=== PATIENT | male | born 1970 | race American Indian/Alaskan Native ===

== ENCOUNTER 2017-12-16 10:56 | Emergency (ER) | payer SELFPAY ==
[2017-12-16] MEDS ORDERED: MOTRIN PO ONE (11:07)
--- NOTE | 2017-12-16 12:27 | Emergency Department Report ---
ED Lower Extremity HPI - General Chief Complaint: Extremity Injury, Lower Stated Complaint: RIGHT FOOT PAIN Time Seen by Provider: 12/16/17 11:06 Source: patient Mode of arrival: Ambulatory Limitations: No Limitations - History of Present Illness Initial Comments: This is a 47-year-old male nontoxic, well nourished in appearance, no acute signs of distress presents to the ED with c/o of right ankle status post fall that occurred yesterday. Patient stated that he was walking twisted his ankle. Patient denies any other trauma or hear injuries. Patient denies any joint redness, joint swelling, fever, chills, nausea, vomiting, chest pain or shortness breath. Patient denies abnormal or decreased gait. Patient denies any allergies or PMH. MD Complaint: ankle injury -: days(s) (1) Injury: Ankle: Right Type of Injury: inversion Severity: mild Severity scale (0 -10): 8 Improves With: immobilization Worsens With: movement, palpation Context: fall Associated Symptoms: swelling, unable to bear weight. denies: snap/pop sensation, numbness, tingling, able to partially bear weight, ambulatory - Related Data Previous Rx's Medication Instructions Recorded Last Taken Type Lansoprazole [Prevacid] 15 mg PO QDAY #30 cap 12/14/13 Unknown Rx ALBUTEROL Inhaler [ProAir HFA 1 puff IH Q4-6H PRN #1 inha 01/26/14 Unknown Rx Inhaler] Azithromycin [Zithromax Z-ROSALINE] 250 mg PO DAILY #6 tablet 01/26/14 Unknown Rx HYDROcodone/APAP 10-325 [[place] 1 each PO Q6HR PRN #20 tablet 01/26/14 Unknown Rx 10/325] Ibuprofen [Motrin] 600 mg PO Q8H PRN #20 tablet 01/26/14 Unknown Rx Prednisone [Prednisone 10 mg 10 mg PO .TAPER #1 tab.ds.pk 01/26/14 Unknown Rx (6-Day Pack, 21 Tabs)] Diazepam Tab [Valium] 5 mg PO Q8H PRN #21 tablet 02/15/14 Unknown Rx HYDROcodone/APAP 5-325 [[place] 1 each PO Q6HR PRN #20 tablet 02/15/14 Unknown Rx 5-325 mg TAB] Ibuprofen [Motrin] 600 mg PO Q8H PRN #30 tablet 12/16/17 Unknown Rx Allergies Allergy/AdvReac Type Severity Reaction Status Date / Time peanut Allergy Swelling Verified 12/16/17 11:00 ED Review of Systems ROS: Stated complaint: RIGHT FOOT PAIN Other details as noted in HPI Constitutional: denies: chills, fever Eyes: denies: eye pain, eye discharge, vision change ENT: denies: ear pain, throat pain Respiratory: denies: cough, shortness of breath, wheezing Cardiovascular: denies: chest pain, palpitations Endocrine: no symptoms reported Gastrointestinal: denies: abdominal pain, nausea, diarrhea Genitourinary: denies: urgency, dysuria Musculoskeletal: arthralgia. denies: back pain, joint swelling Skin: denies: rash, lesions Neurological: denies: headache, weakness, paresthesias Psychiatric: denies: anxiety, depression Hematological/Lymphatic: denies: easy bleeding, easy bruising ED Past Medical Hx - Past Medical History Previous Medical History?: No Additional medical history: denies - Surgical History Additional Surgical History: eye surgery as a child - Social History Smoking Status: Current Every Day Smoker Substance Use Type: None - Medications Home Medications: Home Medications Medication Instructions Recorded Confirmed Last Taken Type Lansoprazole [Prevacid] 15 mg PO QDAY #30 cap 12/14/13 01/26/14 Unknown Rx ALBUTEROL Inhaler [ProAir HFA 1 puff IH Q4-6H PRN #1 inha 01/26/14 Unknown Rx Inhaler] Azithromycin [Zithromax Z-ROSALINE] 250 mg PO DAILY #6 tablet 01/26/14 Unknown Rx HYDROcodone/APAP 10-325 [[place] 1 each PO Q6HR PRN #20 tablet 01/26/14 Unknown Rx 10/325] Ibuprofen [Motrin] 600 mg PO Q8H PRN #20 tablet 01/26/14 Unknown Rx Prednisone [Prednisone 10 mg 10 mg PO .TAPER #1 tab.ds.pk 01/26/14 Unknown Rx (6-Day Pack, 21 Tabs)] Diazepam Tab [Valium] 5 mg PO Q8H PRN #21 tablet 02/15/14 Unknown Rx HYDROcodone/APAP 5-325 [[place] 1 each PO Q6HR PRN #20 tablet 02/15/14 Unknown Rx 5-325 mg TAB] Ibuprofen [Motrin] 600 mg PO Q8H PRN #30 tablet 12/16/17 Unknown Rx ED Physical Exam - General Limitations: No Limitations General appearance: alert, in no apparent distress - Head Head exam: Present: atraumatic, normocephalic - Eye Eye exam: Present: normal appearance Pupils: Present: normal accommodation - ENT ENT exam: Present: normal exam, mucous membranes moist - Neck Neck exam: Present: normal inspection, full ROM. Absent: tenderness, meningismus, lymphadenopathy - Respiratory Respiratory exam: Present: normal lung sounds bilaterally. Absent: respiratory distress, wheezes, rales, rhonchi, stridor, chest wall tenderness, accessory muscle use, decreased breath sounds, prolonged expiratory - Cardiovascular Cardiovascular Exam: Present: regular rate, normal rhythm, normal heart sounds. Absent: irregular rhythm, systolic murmur, diastolic murmur, rubs, gallop - GI/Abdominal GI/Abdominal exam: Present: soft, normal bowel sounds - Rectal Rectal exam: Present: deferred - Extremities Exam Extremities exam: Present: normal inspection, full ROM, tenderness, normal capillary refill. Absent: pedal edema, joint swelling, calf tenderness - Expanded Lower Extremity Exam Right Hip exam: Present: normal inspection, full ROM. Absent: tenderness, swelling Upper Leg exam: Present: normal inspection, full ROM. Absent: tenderness, swelling Knee exam: Present: normal inspection, full ROM. Absent: tenderness, swelling Lower Leg exam: Present: normal inspection, full ROM. Absent: tenderness, swelling Ankle exam: Present: normal inspection, full ROM, tenderness, swelling. Absent : abrasion, laceration, ecchymosis, deformity, crepidus, dislocation, erythema, anterior draw sign Foot/Toe exam: Present: normal inspection, full ROM. Absent: tenderness, swelling, abrasion, laceration, ecchymosis, deformity, crepidus, dislocation, erythema, amputation, puncture wound, foreign body, calcaneal tenderness, tenderness at base of 5th metatarsal, nail avulsion, subungual hematoma Neuro vascular tendon exam: Present: no vascular compromise. Absent: pulse deficit, abnormal cap refill, motor deficit, sensory deficit, tendon deficit, extremity cold to touch, pallor, abnormal 2-point discrimination, decreased fine /light touch, foot drop, peroneal nerve deficit, significant pain with passive ROM of distal joint Gait: Positive: unable to bear weight - Back Exam Back exam: Present: normal inspection, full ROM. Absent: tenderness, CVA tenderness (R), CVA tenderness (L), muscle spasm, paraspinal tenderness, vertebral tenderness, rash noted - Neurological Exam Neurological exam: Present: alert, oriented X3, normal gait - Psychiatric Psychiatric exam: Present: normal affect, normal mood - Skin Skin exam: Present: warm, dry, intact, normal color. Absent: rash ED Course Vital Signs 12/16/17 12/16/17 11:00 11:56 Temperature 98.3 F Pulse Rate 103 H Respiratory 18 16 Rate Blood Pressure 175/99 O2 Sat by Pulse 99 Oximetry - Reevaluation(s) Reevaluation #1: 12/16/17 12:38 Patient is speaking in full sentences with no signs of distress noted. ED Lower Extremity MDM - Medical Decision Making This is a 47-year-old female that presents with right ankle sprain. Patient is stable and was examined by me. I referred patient to an orthopedic doctor for further evaluation for possible MRI. X-ray has been obtained and dictated by the radiologist Dr. Vickers and faxed. Patient is notified of the x-ray report with noted by the patient. There is no ecchymosis. no joint redness or swelling. Not warm to touch. No signs of cellulites present. Patient received a ankle stirrup and crutches and was eduacated by RN how to use crutches. Patient was instructed to RICE therapy. Patient received Motrin for pain. Patient is discharged with Motrin. At time of discharge, the patient does not seem toxic or ill in appearance. No acute signs of distress noted. Patient agrees to discharge treatment plan of care. No further questions noted by the patient. Critical care attestation.: If time is entered above; I have spent that time in minutes in the direct care of this critically ill patient, excluding procedure time. ED Disposition Clinical Impression: Right ankle sprain Qualifiers: Encounter type: initial encounter Involved ligament of ankle: unspecified ligament Qualified Code(s): S93.401A - Sprain of unspecified ligament of right ankle, initial encounter Disposition: TO HOME OR SELFCARE Is pt being admited?: No Does the pt Need Aspirin: No Condition: Stable Instructions: Ankle Sprain (ED), Ankle Stirrup Splint (ED), Crutch Instructions (ED), Ibuprofen (By mouth), RICE Therapy (ED) Additional Instructions: Follow-up with a orthopedic doctor in 3-5 days or if symptoms worsen and continue return to emergency room as soon as possible. Prescriptions: Ibuprofen [Motrin] 600 mg PO Q8H PRN #30 tablet PRN Reason: Pain Referrals: PRIMARY CARE, [Primary Care Provider] - 3-5 Days BHARATI MEREDITH MD [Staff Physician] - 3-5 Days [facility] [Outside] - 3-5 Days [facility] [Outside] - 3-5 Days Forms: Work/School Release Form(ED)
[2017-12-16 13:00] VITALS: BP 145/103
--- NOTE | 2017-12-17 12:50 | XRay Report ---
Right foot 3 views: History: Ankle and foot pain. Findings: Osteopenia. No fracture periosteal reaction lytic lesion. Impression: No evidence of acute fracture.
--- NOTE | 2017-12-17 12:50 | XRay Report ---
Right ankle 3 views: History: 16 ankle pain. Findings: No bony or articular abnormality. No fracture or dislocation. Impression: Essentially negative right ankle.
== END 2017-12-16 13:00 | disposition home or self-care (01) ==
LOC: ED 10:56
DX: S93.401A Sprain of unspecified ligament of right ankle, initial encounter (principal); F17.200 Nicotine dependence, unspecified, uncomplicated; W18.30XA Fall on same level, unspecified, initial encounter; Y93.89 Activity, other specified; Y92.89 Other specified places as the place of occurrence of the external cause; Y99.8 Other external cause status

== ENCOUNTER 2018-04-26 13:44 | Emergency (ER) | payer SELFPAY ==
[2018-04-26 14:15] VITALS: BP 125/82
[2018-04-26] MEDS ORDERED: ZOFRAN IM ONE (15:13)
[2018-04-26] MEDS ORDERED: NACL 0.9% 1000 ML 1,000 ML IV ONE (15:13)
--- NOTE | 2018-04-26 15:22 | Emergency Department Report ---
Vomiting/Diarrhea - HPI Chief Complaint: Nausea/Vomiting/Diarrhea Stated Complaint: FEVER/VOMIT/DIABETES Time Seen by Provider: 04/26/18 15:05 Duration: 1 Day Severity: mild Nausea/Vomiting Severity: Mild Diarrhea Severity: None Pain Severity: None Symptoms: Yes Able to Tolerate Fluids, No Watery Diarrhea, No Bloody diarrhea, No Fever, No Recent Unusual Foods, No Recent Untreated Water, No Recent use of Antibiotics, No Family w/ Similar Symptoms, No Contacts w/ Similar Symptoms, No Rash, No Hematuria, No Recent URI Symptoms Other History: This is a 47-year-old male nontoxic, well nourished in appearance , no acute signs of distress presents to the ED with c/o of nausea 1 day. Patient currtenly denies any vomiting. Patient stated that yesterday had vomiting and now patient has nausea and sore throat. Patient denies any abdominal pain, chest pain, short of breath, fever, chills, headache, stiff neck , numbness or tingling. Patient denies any diarrhea or constipation. Patient denies any recent travels. Patient denies any drug allergies significant past medical history. ED Review of Systems ROS: Stated complaint: FEVER/VOMIT/DIABETES Other details as noted in HPI Constitutional: denies: chills, fever Eyes: denies: eye pain, eye discharge, vision change ENT: denies: ear pain, throat pain Respiratory: denies: cough, shortness of breath, wheezing Cardiovascular: denies: chest pain, palpitations Endocrine: no symptoms reported Gastrointestinal: nausea. denies: abdominal pain, vomiting, diarrhea Genitourinary: denies: urgency, dysuria Musculoskeletal: denies: back pain, joint swelling, arthralgia Skin: denies: rash, lesions Neurological: denies: headache, weakness, paresthesias Psychiatric: denies: anxiety, depression Hematological/Lymphatic: denies: easy bleeding, easy bruising ED Past Medical Hx - Past Medical History Hx Diabetes: Yes Additional medical history: denies - Surgical History Additional Surgical History: eye surgery as a child - Social History Smoking Status: Former Smoker Substance Use Type: None - Medications Home Medications: Home Medications Medication Instructions Recorded Confirmed Last Taken Type Lansoprazole [Prevacid] 15 mg PO QDAY #30 cap 12/14/13 01/26/14 Unknown Rx ALBUTEROL Inhaler (OR & NICU) 1 puff IH Q4-6H PRN #1 inha 01/26/14 Unknown Rx [ProAir HFA Inhaler] Azithromycin [Zithromax Z-ROSALINE] 250 mg PO DAILY #6 tablet 01/26/14 Unknown Rx HYDROcodone/APAP 10-325 [[place] 1 each PO Q6HR PRN #20 tablet 01/26/14 Unknown Rx 10/325] Ibuprofen [Motrin] 600 mg PO Q8H PRN #20 tablet 01/26/14 Unknown Rx Prednisone [Prednisone 10 mg 10 mg PO .TAPER #1 tab.ds.pk 01/26/14 Unknown Rx (6-Day Pack, 21 Tabs)] HYDROcodone/APAP 5-325 [[place] 1 each PO Q6HR PRN #20 tablet 02/15/14 Unknown Rx 5-325 mg TAB] diazePAM TAB [Valium] 5 mg PO Q8H PRN #21 tablet 02/15/14 Unknown Rx Ibuprofen [Motrin] 600 mg PO Q8H PRN #30 tablet 12/16/17 Unknown Rx Ondansetron [Zofran Odt] 4 mg PO Q8HR PRN #20 tab.rapdis 04/26/18 Unknown Rx Vomiting Diarrhea Exam - Exam General: Vital signs noted. No distress. Alert and acting appropriately. GENERAL: The patient is a well-developed, well-nourished in no apparent distress. Patient is alert and acting appropriately for age. Alert and oriented 3, no apparent distress, normal gait, atraumatic. HEENT: Head is normocephalic and atraumatic. PERRL, Extraocular muscles are intact. Pupils are equal, round, and reactive to light and accommodation. Nares appeared normal. Mouth is well hydrated and without lesions. Mucous membranes are moist. Posterior pharynx clear of any exudate or lesions. Mouth is well hydrated and without lesions. Tonsils not erythematous or swollen. Uvula midline. Tongue elevated. Mucous members are moist. Posterior pharynx clear, no exudate or lesions. Patent airways. NECK: Supple. No carotid bruits. No lymphadenopathy or thyromegaly.nontender. No meningitic signs are noted. LUNGS: Clear to auscultation. Non labor breathing. No intercostal retractions. Symmetrical with respiration, no wheezing, no rales, or crackles. HEART: Regular rate and rhythm without murmur, rubs or gallops. No reproducible. S1, S2 present, regular rate and rhythm without murmur, no rubs, no gallops. ABDOMEN: Soft, nontender, and nondistended. Positive bowel sounds. No hepatosplenomegaly was noted. No guarding or rebound tenderness, negative epigastric bruit. Negative psoas sign, negative vasquez sign, negative McBurneys sign EXTREMITIES: Without any cyanosis, clubbing, rash, lesions or edema. Peripheral pulses intact. Capillary refill less than 2 seconds. Full range of motion bilaterally. NEUROLOGIC: Cranial nerves II through XII are grossly intact. Alert and oriented x 3. Normal gait. Symmetrical strength and sensation. Reflexes 2+ throughout. Cerebellar testing normal. GCS score of 15. PSYCHIATRIC: Normal affect with no suicidal or homicidal ideations. HEENT: Yes Moist Mucous Membranes, No Pharyngeal Erythema, No Pharyngeal Exudates, No Rhinorrhea, No Conjuctival Injection, No Frontal Tenderness, No Maxillary Tenderness Neck: No Adenopathy, No Rigidity Lungs: Yes Clear Lung Sounds, Yes Good Air Exchange, No Wheezes, No Stridor, No Cough, No Nasal Flaring, No Retractions, No Use of Accessory Muscles Heart exam: Regular: Yes, Murmur: No, Tachycardia: No Abdomen: Tenderness: No, Peritoneal Signs: No, Distention: No, Hyperactive Bowel sounds: No Skin exam: Rash: No, Edema: No, Normal turgor: Yes Neurologic: Alert and oriented, no deficits. Musculoskeletal: Unremarkable. ED Course Vital Signs 04/26/18 14:03 Temperature 98.7 F Pulse Rate 79 Respiratory 20 Rate Blood Pressure 125/82 O2 Sat by Pulse 99 Oximetry - Reevaluation(s) Reevaluation #1: 04/26/18 15:23 Patient is speaking in full sentences with no signs of distress noted. ED Medical Decision Making - Lab Data Result diagrams: 04/26/18 15:14 04/26/18 15:14 - Medical Decision Making This is a 47-year-old male that presents with nausea. Patient is stable and was examined by me. There is no abdominal tenderness. Negative signs of symptoms of appendicitis. Labs obtained. Vital signs are stable prior to discharge. Patient received Zofran and 1L Normal saline in the ED which patient stated symptoms has resolved and subsided. A by mouth challenge has been obtained and patient tolerated well with no nausea vomiting. Patient was notified of strict precautions of appendicitis symptoms and to return to the ED if symptoms occurs as soon as possible. Patient was also instructed to Follow- up with a primary care doctor in 3-5 days or if symptoms worsen and continue return to emergency room as soon as possible. At time of discharge, the patient does not seem toxic or ill in appearance. No acute signs of distress noted. Patient agrees to discharge treatment plan of care. No further questions noted by the patient. Critical care attestation.: If time is entered above; I have spent that time in minutes in the direct care of this critically ill patient, excluding procedure time. ED Disposition Clinical Impression: Nausea Disposition: DC-01 TO HOME OR SELFCARE Is pt being admited?: No Does the pt Need Aspirin: No Condition: Stable Instructions: Acute Nausea and Vomiting (ED) Additional Instructions: Follow-up with a primary care doctor in 3-5 days or if symptoms worsen and continue return to emergency room as soon as possible. Prescriptions: Ondansetron [Zofran Odt] 4 mg PO Q8HR PRN #20 tab.rapdis PRN Reason: Nausea Referrals: PRIMARY CARE, [Primary Care Provider] - 3-5 Days ROSANA ALVARADO MD [Staff Physician] - 3-5 Days [facility] [Outside] - 3-5 Days [facility] [Outside] - 3-5 Days Forms: Work/School Release Form(ED)
[2018-04-26 15:27] LABS: Basophils % (Auto) 0.5 % (0.0-1.8); Eosinophils # (Auto) 0.1 K/mm3 (0.0-0.4); Eosinophils % (Auto) 4.9 % (0.0-4.3); Hematocrit 36.3 % (35.5-45.6); Hemoglobin 12.1 gm/dl (11.8-15.2); Lymphocytes # (Auto) 0.5 K/mm3 (1.2-5.4); Mean Corpuscular HGB Conc 33 % (32-34); Mean Corpuscular Hemoglobin 27 pg (28-32); Mean Corpuscular Volume 82 fl (84-94); Monocytes # (Auto) 0.3 K/mm3 (0.0-0.8); Monocytes % (Auto) 12.5 % (0.0-7.3); Platelet Count 236 K/mm3 (140-440); Red Blood Count 4.44 M/mm3 (3.65-5.03); Red Cell Distribution Width 14.7 % (13.2-15.2)
[2018-04-26 15:55] LABS: BUN/Creatinine Ratio 14; Blood Urea Nitrogen 10 mg/dL (9-20); Hemolysis Index 1
[2018-04-26 15:59] LABS: Alanine Aminotransferase 14 units/L (7-56); Albumin 4.1 g/dL (3.9-5)
[2018-04-26 16:05] LABS: Bilirubin,Direct < 0.2 mg/dL (0-0.2)
== END 2018-04-26 16:57 | disposition home or self-care (01) ==
LOC: ED 13:44
DX: J02.9 Acute pharyngitis, unspecified (principal); R11.2 Nausea with vomiting, unspecified; E11.9 Type 2 diabetes mellitus without complications; Z87.891 Personal history of nicotine dependence; Z79.899 Other long term (current) drug therapy; Z91.010 Allergy to peanuts
CPT/HCPCS: 36415; 80048; 80074; 82805; 85025; 96360; 96372; 99283; J2405; J7030

== ENCOUNTER 2019-06-23 07:35 | Emergency (ER) | payer SELFPAY ==
[2019-06-23 07:40] VITALS: BP 125/90
--- NOTE | 2019-06-23 08:50 | Emergency Department Report ---
Chief Complaint: Dental/Oral Stated Complaint: TOOTHACHE Time Seen by Provider: 06/23/19 08:29 - HPI History of Present Illness: 48-year-old male with poor dentition and presents to ED with a toothache 2 days. Patient reports he experienced facial swelling a couple of days ago but that has now resolved. Patient reports pain is coming from the right upper molar. He also reported possible viral illness, stating that he got a classmate sick the other day. Patient reports fever and chills, cough, body aches, nausea and vomiting. - ROS Review of Systems: Constitutional: positive for fever, chills, myalgias ENT: positive for toothache GI: positive for nausea, vomiting Resp: positive for cough Neuro: negative for headache All other systems reviewed and negative. - Exam Vital Signs: Vital Signs 06/23/19 07:36 Temperature 97.5 F L Pulse Rate 113 H Respiratory 18 Rate Blood Pressure 125/90 O2 Sat by Pulse 99 Oximetry Physical Exam: 48-year-old male, nontoxic appearing. Vital signs are normal. He was initially slightly tachycardic, however repeat vital signs on resolution of his tachycardia without intervention. He is afebrile. The patient has poor dentition with several missing teeth. The tooth in question is tooth #1. It appears to be eroded down to the gingiva. No obvious abscess present. Patient has no facial swelling. There is no trismus present. Airway is intact. There are no signs of Endy's angina. Posterior oropharynx is normal. Lungs are clear. Abdomen is soft and nontender. Extremities appear normal. Patient is ambulatory. Neuro exam is nonfocal. MSE screening note: Focused history and physical exam performed. Due to findings the following was ordered: N/A ED Medical Decision Making - Medical Decision Making Patient presents to ED with toothache and what appears to be a viral illness. Vitals are normal. There is no obvious tooth abscess with facial swelling present. Patient appears nontoxic. He is in no respiratory distress. O2 sats are normal. Lungs are clear. He does not appear to be dehydrated, mucous membranes are moist. I do not feel that patient has an emergent condition at this time. He has been referred for outpatient treatment. Outpatient resources given. - Differential Diagnosis toothache, dental caries, viral illness ED Disposition for MSE Clinical Impression: Tooth ache, Viral illness Disposition: Z-07 MED SCREENING EXAM-LEFT Is pt being admited?: No Condition: Stable Referrals: [facility] [Provider Group] - 3-5 Days [facility] [Outside] - 3-5 Days [facility] [Outside] - 3-5 Days [facility] [Outside] - 3-5 Days OCHOA MORA MD [Staff Physician] - 3-5 Days Time of Disposition: 08:48
== END 2019-06-23 09:05 | disposition left against medical advice (07) ==
LOC: ED 07:35
DX: B34.9 Viral infection, unspecified (principal); K08.89 Other specified disorders of teeth and supporting structures
CPT/HCPCS: 99282

== ENCOUNTER 2020-09-08 08:54 | Inpatient (IN) | payer OTHER ==
--- NOTE | 2020-09-08 09:13 | Emergency Department Report ---
HPI - General Time Seen by Provider: 09/08/20 09:09 - [facility] HPI: Room 36 The patient is a 49-year-old male present with a chief complaint of headache and right-sided weakness. The patient states his symptoms began last night with the headache. Patient states he requested Tylenol from staff at the custodial. The patient states when he awakened this morning at 06: 00 his headache was still present but he had no other symptoms at that time. The patient states at approximately 07: 30 this morning he noticed he was drooling and he exhibited difficulty speaking. Patient states he also has numbness in his right arm and right leg. ED Past Medical Hx - Past Medical History Hx Diabetes: Yes Additional medical history: denies - Surgical History Additional Surgical History: eye surgery as a child - Family History Family history: no significant - Social History Smoking Status: Never Smoker Substance Use Type: None (Denies illicit drug use) - Medications Home Medications: Home Medications Medication Instructions Recorded Confirmed Last Taken Type Tylenol 1,000 mg PO PRN PRN 09/08/20 09/08/20 Unknown History ED Review of Systems ROS: Stated complaint: STROKE Other details as noted in HPI Constitutional: no symptoms reported Eyes: denies: eye pain ENT: denies: throat pain Respiratory: no symptoms reported Cardiovascular: denies: chest pain Endocrine: no symptoms reported Gastrointestinal: denies: abdominal pain Genitourinary: denies: dysuria Musculoskeletal: denies: back pain Neurological: headache, paresthesias, other (Dysarthria) Physical Exam - Physical Exam Physical Exam: GENERAL: The patient is well-developed well-nourished male lying on stretcher occasionally appearing anxious and tearful. Patient exhibits dysarthria HEENT: Normocephalic. Atraumatic. Extraocular motions are intact. Patient has moist mucous membranes. NECK: Supple. Trachea midline CHEST/LUNGS: Clear to auscultation. There is no respiratory distress noted. HEART/CARDIOVASCULAR: Regular. There is no tachycardia. There is no gallop rub or murmur. ABDOMEN: Abdomen is soft, nontender. Patient has normal bowel sounds. There is no abdominal distention. SKIN: There is no rash. There is no edema. There is no diaphoresis. NEURO: The patient is awake, alert, and oriented. The patient is cooperative. Cranial nerves II through XII grossly intact with exception of a right facial droop. The patient has dysarthria. Decreased sensation to light touch of the right upper extremity and right lower extremity GCS 15. NIHSS= 4 MUSCULOSKELETAL: There is no evidence of acute injury. ED Course - Consultations Consultation #1: 09/08/20 09:12 Case discussed with [id number] TPA. Possible Ching's palsy. Recommends admission to the hospital for continued work-up including MRI of the brain with and without contrast ED Medical Decision Making - Lab Data Result diagrams: 09/08/20 09:15 09/08/20 09:15 Laboratory Tests 09/08/20 09/08/20 09/08/20 09:15 09:15 09:15 WBC 3.8 L RBC 4.63 Hgb 12.7 Hct 37.6 MCV 81 L MCH 28 MCHC 34 RDW 14.2 Plt Count 290 Lymph % (Auto) 11.3 L [place] % (Auto) 12.6 H Eos % (Auto) 0.5 Baso % (Auto) 0.1 Lymph # (Auto) 0.4 L [place] # (Auto) 0.5 Eos # (Auto) 0.0 Baso # (Auto) 0.0 Seg Neutrophils % 75.5 H Seg Neutrophils # 2.9 PT 13.3 INR 1.03 APTT 32.2 Thrombin Time Sodium 140 Potassium 4.1 Chloride 108.2 H Carbon Dioxide 27 Anion Gap 9 BUN 7 L Creatinine 0.9 Estimated GFR > 60 BUN/Creatinine Ratio 8 Glucose 96 Calcium 8.5 Troponin T < 0.010 09/08/20 09:15 WBC RBC Hgb Hct MCV MCH MCHC RDW Plt Count Lymph % (Auto) [place] % (Auto) Eos % (Auto) Baso % (Auto) Lymph # (Auto) [place] # (Auto) Eos # (Auto) Baso # (Auto) Seg Neutrophils % Seg Neutrophils # PT INR APTT Thrombin Time 17.9 Sodium Potassium Chloride Carbon Dioxide Anion Gap BUN Creatinine Estimated GFR BUN/Creatinine Ratio Glucose Calcium Troponin T - EKG Data -: EKG Interpreted by Or EKG shows normal: sinus rhythm Rate: normal - Radiology Data Radiology results: report reviewed (CT head) CT head (read by radiologist)-subacute nonhemorrhagic infarction of the left frontal lobe - Differential Diagnosis CVA Critical care attestation.: If time is entered above; I have spent that time in minutes in the direct care of this critically ill patient, excluding procedure time. ED Disposition Clinical Impression: CVA (cerebral vascular accident) Disposition: DC-09 OP ADMIT IP TO THIS HOSP Is pt being admited?: Yes Does the pt Need Aspirin: Yes Condition: Fair Referrals: PRIMARY CARE,MD [Primary Care Provider] - 3-5 Days Time of Disposition: 10:57 (Hospitalist notified (Dr. Jefferson))
[2020-09-08] MEDS ORDERED: ASPIRIN 325 MG TAB PO ONE (09:15)
[2020-09-08 09:22] LABS: Basophils % (Auto) 0.1 % (0.0-1.8); Eosinophils % (Auto) 0.5 % (0.0-4.3); Hematocrit 37.6 % (35.5-45.6); Hemoglobin 12.7 gm/dl (11.8-15.2); Lymphocytes # (Auto) 0.4 K/mm3 (1.2-5.4); Lymphocytes % (Auto) 11.3 % (13.4-35.0); Mean Corpuscular HGB Conc 34 % (32-34); Mean Corpuscular Volume 81 fl (84-94); Monocytes # (Auto) 0.5 K/mm3 (0.0-0.8); Monocytes % (Auto) 12.6 % (0.0-7.3); Platelet Count 290 K/mm3 (140-440); Red Blood Count 4.63 M/mm3 (3.65-5.03); Red Cell Distribution Width 14.2 % (13.2-15.2)
--- NOTE | 2020-09-08 09:22 | Cat Scan Report ---
NONENHANCED CT SCAN OF THE HEAD: INDICATION / CLINICAL INFORMATION: 49 years Male; MAIN. TECHNIQUE: Routine CT head without contrast. All CT scans at this location are performed using CT dos e reduction for ALARA by means of automated exposure control. COMPARISON: None. FINDINGS: BRAIN / INTRACRANIAL CONTENTS: Abnormal CT scan; low-attenuation lesion in the left middle frontal gy nader probably involving the left arcuate fasciculus consistent with subacute infarction; Broca's area spared; no hemorrhagic changes; there may be slightly increased CT attenuation in the left middle cer ebral artery branches in the sylvian fissure. No acute hemorrhage, mass effect, midline shift, hydrocephalus, No chronic infarct or focal atrophy. Normal brain volume and ventricular/sulcal size for age. No significant white matter abnormality. CRANIOCERVICAL JUNCTION: No significant abnormality. ORBITS: No significant abnormality of visualized orbits. SINUSES / MASTOIDS: No significant abnormality of the visualized paranasal sinuses or mastoid air january ls. ADDITIONAL FINDINGS: None. IMPRESSION: Subacute nonhemorrhagic infarction involving the left frontal lobe CRITICAL RESULT: Time of Discovery (PACKING ROOM WORKER/CDT): 8:12 AM Time of Communication (PACKING ROOM WORKER/CDT): 8:15 AM Licensed Practitioner Receiving Report: ER physician Read-Back Performed: Yes. Signer Name: Fam Ellis MD Signed: 09/08/2020 9:17 AM Workstation Name: [id number]
[2020-09-08 09:36] LABS: BUN/Creatinine Ratio 8; Blood Urea Nitrogen 7 mg/dL (9-20); Calcium 8.5 mg/dL (8.4-10.2); Hemolysis Index 11
[2020-09-08 09:54] LABS: INR 1.03 (0.87-1.13)
[2020-09-08 09:55] LABS: Partial Thromboplastin Time 32.2 Sec. (24.2-36.6)
[2020-09-08] MEDS ORDERED: ONDANSETRON 4 MG/2 ML INJ IV ONE (12:06)
[2020-09-08] MEDS ORDERED: fentaNYL 100 MCG/2 ML INJ IV ONE (12:06)
[2020-09-08] MEDS ORDERED: MAGNESIUM HYDROXIDE (MOM) ORAL LIQD UDC PO PRN (12:23)
[2020-09-08] MEDS ORDERED: PROMETHAZINE 25 MG RECT SUPP PR PRN (12:23)
[2020-09-08] MEDS: fentaNYL 100 MCG/2 ML INJ IV ONE ×2 (13:10→13:12)
--- NOTE | 2020-09-08 13:49 | Vascular Lab Report ---
BILATERAL CAROTID DOPPLER ULTRASOUND INDICATION : stroke TECHNIQUE: Grayscale and color Doppler imaging performed through the neck. COMPARISON: None FINDINGS: Right: There is no significant atherosclerotic disease. Peak systolic velocity in the CCA is 74 cm/ s with end-diastolic velocity of 19 cm/s. Peak systolic velocity in the proximal ICA is 78 cm/s with end-diastolic velocity of 30 cm/s. ICA to CCA ratio is less than 2. There is antegrade flow in the E CA and the vertebral artery. Left: There is no significant atherosclerotic disease. Peak systolic velocity in the CCA is 73 cm/s w ith end-diastolic velocity of 21 cm/s. Peak systolic velocity in the proximal ICA is 85 cm/s with end -diastolic velocity of 38 cm/s. ICA to CCA ratio is less than 2. There is antegrade flow in the ECA and the vertebral artery. IMPRESSION: No hemodynamically significant stenosis by NASCET criteria. Doppler velocities indicate l ess than 50% luminal narrowing bilaterally. Signer Name: Isidoro Clark Jr, MD Signed: 09/08/2020 1:45 PM Workstation Name: [id number]
--- NOTE | 2020-09-08 14:25 | History and Physical Report ---
History of Present Illness Date of admission: 09/08/20 10:56 Chief complaint: I feel weak on my right side and I could not talk History of present illness: 49 YO Male with DM presents to ED for evaluation. Patient reports "I feel weak on my right side and I could not talk". Patient states he was in his usual state of health at bedtime around 2200 hrs. Patient states that he awoke from [facility] at approximately 0600 hrs. and experienced a headache as well as drooling, slurred speech, and right arm and leg weakness. EMS was notified and upon arrival the patient was found to be in distress with a neurologic deficit. A code stroke was called and the patient was subsequently transported to [facility] for further care and evaluation of the aforementioned symptoms. The patient was seen and evaluated in the emergency department. All lab and imaging studies reviewed. Patient found to have clinical symptoms consistent with CVA. Patient underwent CT scan of the head which revealed focal ischemia. Patient placed in observation status and admitted to medical floor and initiated on CVA protocol. Patient denies fever, chills, chest pain, palpitation, productive cough, skin rash, recent ill contacts, or known exposure to COVID-19. No prior admission for review. No medication listed at time of admission for reconciliation. Past History Past Medical History: diabetes, other (See HPI) Past Surgical History: Other (Eye surgery) Social history: single. denies: smoking, alcohol abuse, prescription drug abuse Family history: CAD, hypertension Medications and Allergies Allergies Allergy/AdvReac Type Severity Reaction Status Date / Time peanut Allergy Swelling Verified 12/16/17 11:00 Home Medications Medication Instructions Recorded Confirmed Last Taken Type Tylenol 1,000 mg PO PRN PRN 09/08/20 09/08/20 Unknown History Active Meds: Active Medications Acetaminophen (Acetaminophen 325 Mg Tab) 650 mg PO Q4H PRN PRN Reason: Pain, Mild (1-3) Aspirin (Aspirin 325 Mg Tab) 325 mg PO QDAY BUDDY Atorvastatin Calcium (Atorvastatin 40 Mg Tab) 40 mg PO QHS BUDDY Bisacodyl (Bisacodyl 10 Mg Rect Supp) [address] QDAY PRN PRN Reason: Constipation Magnesium Hydroxide (Magnesium Hydroxide (Mom) Oral Liqd Udc) 30 ml PO Q4H PRN PRN Reason: Constipation Metoclopramide HCl (Metoclopramide 10 Mg Tab) 10 mg PO Q6H PRN PRN Reason: Nausea And Vomiting Ondansetron HCl (Ondansetron 4 Mg/2 Ml Inj) 4 mg IV Q8H PRN PRN Reason: Nausea And Vomiting Promethazine HCl (Promethazine 25 Mg Rect Supp) [address] Q6H PRN PRN Reason: Nausea And Vomiting Sodium Chloride (Sodium Chloride 0.9% 10 Ml Flush Syringe) 10 ml IV PRN PRN PRN Reason: LINE FLUSH Review of Systems Constitutional: no weight loss, no fever, no sweats Ears, nose, mouth and throat: no ear pain, no tinnitis, no decreased hearing, no nose pain, no nasal discharge, no sinus pressure Cardiovascular: no chest pain, no palpitations, no rapid/irregular heart beat, no edema, no lightheadedness, no shortness of breath Respiratory: no cough, no cough with sputum, no shortness of breath Gastrointestinal: no abdominal pain, no nausea, no vomiting, no constipation, no hematemesis Genitourinary Male: no dysuria, no hematuria, no flank pain, no urinary frequency Rectal: no pain, no incontinence, no bleeding Musculoskeletal: no neck stiffness, no neck pain, no shooting arm pain, no low back pain, no shooting leg pain, no leg numbness/tingling Integumentary: no rash, no pruritis, no redness, no sores, no wounds, no jaundice Neurological: no transient paralysis, no paralysis, no parathesias, no numbness, no seizures, no syncope Psychiatric: no anxiety, no change in sleep habits, no sleep disturbances, no insomnia, no change in libido, no suicidal ideation, no disorientation Endocrine: no cold intolerance, no heat intolerance, no polyphagia, no excessive thirst, no polyuria, no nocturia, no excessive sweating, no flushing Hematologic/Lymphatic: no easy bruising, no easy bleeding Allergic/Immunologic: no urticaria, no wheezing Exam - Constitutional Vitals: Temp Pulse Resp BP Pulse Ox 98.7 F 66 23 133/91 98 09/08/20 09:19 09/08/20 13:45 09/08/20 13:45 09/08/20 13:45 09/08/20 13:45 General appearance: Present: mild distress - EENT Eyes: Present: PERRL ENT: hearing intact, clear oral mucosa - Neck Neck: Present: supple, normal ROM - Respiratory Respiratory effort: normal Respiratory: bilateral: CTA - Cardiovascular Heart Sounds: Present: S1 & S2. Absent: rub, click - Extremities Extremities: pulses symmetrical, No edema Peripheral Pulses: within normal limits - Abdominal General gastrointestinal: Present: soft, non-tender, non-distended, normal bowel sounds Male genitourinary: Present: normal - Integumentary Integumentary: Present: clear, warm, dry - Musculoskeletal Musculoskeletal: right sided weakness - Psychiatric Psychiatric: appropriate mood/affect, intact judgment & insight - Neurologic Neurologic: CNII-XII intact, moves all extremities HEART Score - HEART Score Troponin: Troponin T < 0.010 ng/mL (0.00-0.029) 09/08/20 09:15 Results - Labs CBC & Chem 7: 09/08/20 09:15 09/08/20 09:15 Labs: Abnormal lab results 09/08/20 09/08/20 Range/Units 09:15 09:15 WBC 3.8 L (4.5-11.0) K/mm3 MCV 81 L (84-94) fl Lymph % (Auto) 11.3 L (13.4-35.0) % [place] % (Auto) 12.6 H (0.0-7.3) % Lymph # (Auto) 0.4 L (1.2-5.4) K/mm3 Seg Neutrophils % 75.5 H (40.0-70.0) % Chloride 108.2 H (98-107) mmol/L BUN 7 L (9-20) mg/dL Assessment and Plan - Patient Problems (1) CVA (cerebral vascular accident) Current Visit: Yes Status: Acute Plan to address problem: CVA protocol: CT head, neuro check, seizure precautions, aspiration precautions, physical therapy consulted, Occupational Therapy consulted, speech therapy consulted, antiplatelet therapy, lipid panel, statin therapy, telemetry neurology consulted in ED. echocardiogram, carotid Doppler. Patient deemed not a candidate for TPA. (2) DVT prophylaxis Current Visit: Yes Status: Acute Plan to address problem: SCDs bilateral lower extremities while in bed, patient is ambulatory.
[2020-09-09] MEDS: ASPIRIN 325 MG TAB PO SCH (10:00)
[2020-09-09] MEDS ORDERED: FLU VACC QUAD 2020-2021 (6 months +)/PF 60 0.5 ML SYRINGE IM ONE (12:00)
--- NOTE | 2020-09-09 12:37 | Progress Note ---
Assessment and Plan (1) CVA (cerebral vascular accident) Current Visit: Yes Status: Acute Plan to address problem: CVA protocol: CT head, neuro check, seizure precautions, aspiration precautions, physical therapy consulted, Occupational Therapy consulted, speech therapy consulted, antiplatelet therapy, lipid panel, statin therapy, telemetry neurology consulted in ED. echocardiogram, carotid Doppler. Patient deemed not a candidate for TPA. (2) DVT prophylaxis Current Visit: Yes Status: Acute Plan to address problem: SCDs bilateral lower extremities while in bed, patient is ambulatory. 09/09: follow MRI and neuro recommendation Subjective Date of service: 09/09/20 Interval history: Patient seen and examined. Medical records and medication list reviewed. No acute event overnight noted by the RN. Patient denies any chest pain or difficulty breathing. Discussed plan of care at bedside with patient. Objective - Exam Narrative Exam: GENERAL: well-developed -Spanish male lying on bed appeared to be in no discomfort. HEENT: Normocephalic. Atraumatic. No conjunctival congestion or icterus. Patient has moist mucous membranes. NECK: Supple. Trachea midline. CHEST/LUNGS: Clear to auscultated bilaterally, breathing nonlabored. No wheezes crackles or rhonchi. HEART/CARDIOVASCULAR: Regular in rate and rhythm. S1 and S2 positive. ABDOMEN: Abdomen is soft, nontender. Patient has normal bowel sounds. SKIN: There is no rash. Warm and dry. NEURO: No focal motor deficit. Follows command. Patient has staggering speech MUSCULOSKELETAL: No joint effusion or tenderness. EXTRIMITY: No edema, no cyanosis or clubbing. PSYCH: Cooperative. - Constitutional Vitals: Vital Signs - 12hr 09/09/20 09/09/20 09/09/20 03:13 03:14 04:42 Temperature 99.1 F Pulse Rate 81 81 Respiratory 16 Rate Blood Pressure 118/78 O2 Sat by Pulse 95 Oximetry 09/09/20 09/09/20 08:35 11:05 Temperature 99.3 F Pulse Rate 90 83 Respiratory 16 16 Rate Blood Pressure 116/80 102/64 O2 Sat by Pulse 97 97 Oximetry - Labs CBC & Chem 7: 09/17/20 06:09 09/15/20 09:12 HEART Score - HEART Score Troponin: Troponin T < 0.010 ng/mL (0.00-0.029) 09/08/20 09:15
--- NOTE | 2020-09-09 16:45 | Magnetic Resonance Report ---
MRI BRAIN WITHOUT CONTRAST INDICATION / CLINICAL INFORMATION: CVA. TECHNIQUE: Multiplanar, multisequence MR images of the brain were obtained. COMPARISON: Head CT 09/08/2020 FINDINGS: BRAIN / INTRACRANIAL CONTENTS: An area of decreased brain parenchymal attenuation identified in the left frontal lobe on head CT jim ed 09/08/2020 was thought likely secondary to recent infarction. On MRI brain a vasogenic edema patter n is seen in this location. There is no indication of restricted diffusion to suggest the presence of recent ischemia. A second smaller focus of vasogenic edema is seen in the lateral aspect of the righ t parietal lobe. Cortex is spared in both locations. There is mild mass effect with effacement of sev eral cortical sulci adjacent to the left frontal lobe lesion.. Follow-up with MRI brain with contrast is advised to evaluate for possible underlying lesions producing these regions of vasogenic edema. Third and lateral ventricles are normal in size and configuration. No evidence of intracranial hemorr medardo or extra-axial fluid collection is seen. Diffusion weighted scans are negative. There is no sadie cation of acute ischemic injury. The brainstem and cerebellum have an unremarkable appearance. MIDLINE STRUCTURES:No abnormalities are seen to involve the pituitary gland. Pineal region has an unr emarkable appearance. CRANIOCERVICAL JUNCTION: No abnormalities are identified at the craniocervical junction. VASCULAR FLOW-VOIDS: Normal flow-voids are present within the major intracranial vessels. ORBITS: The orbits have an unremarkable appearance. SINUSES / MASTOIDS: Extensive inflammatory changes are present within the paranasal sinuses. Opacific ation of multiple ethmoid air cells is observed bilaterally. Subtotal opacification of the left maxil jose l sinus is observed. Mucosal disease is also observed in the right sphenoid sinus, at the base of the right maxillary sinus and within the frontal sinuses bilaterally. Pansinusitis should be consider ed. Mastoid air cells are free from inflammatory change. IMPRESSION: 1. MRI brain findings do not confirm the presence of left frontal lobe infarction. 2. 2 regions of vasogenic edema are identified. These are present in the left frontal lobe and right parietal lobe. 3. Follow-up with MRI brain with contrast is advised to evaluate for possible underlying lesions in t he regions of vasogenic edema. 4. Suspect pansinusitis. Signer Name: Miguel Montana MD Signed: 09/09/2020 4:40 PM Workstation Name: [id number]
[2020-09-09] MEDS: ACETAMINOPHEN 325 MG TAB PO PRN (22:20)
[2020-09-10] MEDS: ASPIRIN 325 MG TAB PO SCH (09:20)
--- NOTE | 2020-09-10 13:59 | Progress Note ---
Assessment and Plan -- CVA (cerebral vascular accident), ruled out --Possible cerebral metastasis MRI brain: 1. MRI brain findings do not confirm the presence of left frontal lobe infarction. 2. 2 regions of vasogenic edema are identified. These are present in the left frontal lobe and right parietal lobe. 3. Follow-up with MRI brain with contrast is advised to evaluate for possible underlying lesions in the regions of vasogenic edema. 4. Suspect pansinusitis. Order MRI brain with contrast, pending neuro consult Continue to monitor patient for now with supportive care --History of weight loss, consult dietary -- DVT prophylaxis SCDs bilateral lower extremities while in bed, patient is ambulatory. Daily course: 09/09: Pending MRI. follow MRI and neuro recommendation 09/10: MRI result noted, possible metastatic cervical disease - order for MRI brain with contrast, follow clinically Subjective Date of service: 09/10/20 Interval history: Patient seen and examined. Medical records and medication list reviewed. No acute event overnight noted by the RN. Patient denies any chest pain or difficulty breathing. Discussed plan of care at bedside with patient. Objective - Exam Narrative Exam: GENERAL: well-developed -Indonesian male lying on bed appeared to be in no discomfort. HEENT: Normocephalic. Atraumatic. No conjunctival congestion or icterus. Patient has moist mucous membranes. NECK: Supple. Trachea midline. CHEST/LUNGS: Clear to auscultated bilaterally, breathing nonlabored. No wheezes crackles or rhonchi. HEART/CARDIOVASCULAR: Regular in rate and rhythm. S1 and S2 positive. ABDOMEN: Abdomen is soft, nontender. Patient has normal bowel sounds. SKIN: There is no rash. Warm and dry. NEURO: No focal motor deficit. Follows command. Patient has staggering speech MUSCULOSKELETAL: No joint effusion or tenderness. EXTRIMITY: No edema, no cyanosis or clubbing. PSYCH: Cooperative. - Constitutional Vitals: Vital Signs - 12hr 09/10/20 09/10/20 09/10/20 04:32 07:00 07:27 Temperature 98.6 F Pulse Rate 74 78 78 Respiratory 20 16 Rate Blood Pressure 110/77 112/76 O2 Sat by Pulse 98 98 Oximetry 09/10/20 09/10/20 09/10/20 08:25 09:02 11:01 Temperature 97.9 F 99.0 F Pulse Rate 77 Respiratory 18 Rate Blood Pressure 96/65 O2 Sat by Pulse 97 96 Oximetry - Labs CBC & Chem 7: 09/17/20 06:09 09/15/20 09:12 HEART Score - HEART Score Troponin: Troponin T < 0.010 ng/mL (0.00-0.029) 09/08/20 09:15
--- NOTE | 2020-09-11 09:11 | Magnetic Resonance Report ---
NONENHANCED and contrast-enhanced MR SCAN OF THE BRAIN: INDICATION / CLINICAL INFORMATION: possible tumor. TECHNIQUE: Multiplanar, multisequence MR images of the brain obtained. COMPARISON: MR scan of the brain from 09/09/2020 FINDINGS: BRAIN / INTRACRANIAL CONTENTS: In the contrast enhanced series, focal areas of enhancement seen in willian th left frontal lobe and right parietal lobe areas of vasogenic edema. No other enhancing lesions seen. Vasogenic edema remains unchanged. No calvarial lesions seen. CRANIOCERVICAL JUNCTION: No significant abnormality. VASCULAR FLOW-VOIDS: No significant abnormality. ORBITS: No significant abnormality of visualized orbits. SINUSES / MASTOIDS: Extensive mucosal disease in the left maxillary sinus, ethmoid air cells bilatera lly, and to a lesser degree in the left frontal and right sphenoid sinus. ADDITIONAL FINDINGS: None. IMPRESSION: Areas of enhancement seen in both cerebral hemispheric lesions with vasogenic edema, consistent with metastatic lesions. Lack of diffusion signal intensity changes would exclude pyogenic cerebral absces ses. Signer Name: Fam Ellis MD Signed: 09/11/2020 9:07 AM Workstation Name: [id number]
[2020-09-11] MEDS: ASPIRIN 325 MG TAB PO SCH (09:34)
--- NOTE | 2020-09-11 12:39 | Cat Scan Report ---
CT CHEST WITH AND WITHOUT CONTRAST INDICATION / CLINICAL INFORMATION: metastatic disease. TECHNIQUE: Axial CT images were obtained through the chest before and after 100 cc IV contrast. All CT scans at this location are performed using CT dose reduction for ALARA by means of automated exposure control. COMPARISON: None available. FINDINGS: HEART: No significant abnormality. THORACIC AORTA: No significant abnormality. MEDIASTINUM and KELLEY: No significant abnormality. LUNGS: Bilateral lower lobe linear atelectasis/scarring. No pulmonary nodule or mass. PLEURA: No significant pleural effusion. No pneumothorax. ADDITIONAL FINDINGS: None. UPPER ABDOMEN: No significant abnormality. SKELETAL SYSTEM: No significant abnormality. IMPRESSION: 1. No CT evidence for intrathoracic malignancy Signer Name: Michael Casiano MD Signed: 09/11/2020 12:35 PM Workstation Name: [id number]
--- NOTE | 2020-09-11 13:01 | Cat Scan Report ---
CT ABDOMEN AND PELVIS WITH CONTRAST HISTORY: metastatic disease. Recent brain MRI with a couple small areas worrisome for metastatic dis ease, here for further evaluation COMPARISON: CT chest from today TECHNIQUE: CT images of the abdomen and pelvis were obtained following administration of intravenous contrast. All CT scans at this location are performed using CT dose reduction for ALARA by means of automated exposure control. CONTRAST: 100 ml of intravenous contrast administered. FINDINGS: Lungs/bones: Please see separately dictated CT chest report for lung findings. There are degenerativ e changes in the spine and pelvis with no acute osseous abnormality identified. Abdomen/pelvis: The liver, gallbladder, spleen, pancreas, adrenals, kidneys, and proximal GI tract a ppear unremarkable. No pathologic retroperitoneal adenopathy although there are several abnormal enlarged peritoneal lymp h nodes in the mesenteric root. No pathologic adenopathy in either iliac chain. There are several bal ddy bilateral inguinal lymph nodes. Urinary bladder is unremarkable. Prostate is normal. No pelvic free fluid. There are occasional colon ic diverticula with no acute inflammatory change identified. IMPRESSION: 1. Multiple enlarged peritoneal lymph nodes, some of which technically fit the short axis criteria (i .e. 1 cm) for pathologic enlargement. Given the age and lack of any primary malignancy, a neoplastic process such as lymphoma would be in the differential. Signer Name: Lonnie Roman MD Signed: 09/11/2020 12:57 PM Workstation Name: [id number]
--- NOTE | 2020-09-11 15:08 | Consultation ---
History of Present Illness Consult date: 09/11/20 Reason for Consult: CVA Chief complaint: Right-sided Weakness w/ slurred speech History of present illness: 50 yo male w/ dm with acute right face/arm/leg weakness w/ noted metastatic disease on MR Brain w/ contrast. Notes headache for th last 2 weeks at the right frontoparietal region. Loss of weight of 21 pounds over the last 2-3 months. Past History Past Medical History: diabetes, other (See HPI) Past Surgical History: Other (Eye surgery) Social history: single. denies: smoking, alcohol abuse, prescription drug abuse Family history: CAD, hypertension Medications and Allergies Allergies Allergy/AdvReac Type Severity Reaction Status Date / Time peanut Allergy Swelling Verified 12/16/17 11:00 Home Medications Medication Instructions Recorded Confirmed Last Taken Type Tylenol 1,000 mg PO PRN PRN 09/08/20 09/08/20 Unknown History Active Meds: Active Medications Acetaminophen (Acetaminophen 325 Mg Tab) 650 mg PO Q4H PRN PRN Reason: Pain, Mild (1-3) Last Admin: 09/09/20 22:20 Dose: 650 mg Documented by: Aspirin (Aspirin 325 Mg Tab) 325 mg PO QDAY [facility] Last Admin: 09/11/20 09:34 Dose: 325 mg Documented by: Atorvastatin Calcium (Atorvastatin 40 Mg Tab) 40 mg PO QHS [facility] Last Admin: 09/10/20 22:17 Dose: 40 mg Documented by: Bisacodyl (Bisacodyl 10 Mg Rect Supp) 10 mg WI QDAY PRN PRN Reason: Constipation Magnesium Hydroxide (Magnesium Hydroxide (Mom) Oral Liqd Udc) 30 ml PO Q4H PRN PRN Reason: Constipation Metoclopramide HCl (Metoclopramide 10 Mg Tab) 10 mg PO Q6H PRN PRN Reason: Nausea And Vomiting Ondansetron HCl (Ondansetron 4 Mg/2 Ml Inj) 4 mg IV Q8H PRN PRN Reason: Nausea And Vomiting Promethazine HCl (Promethazine 25 Mg Rect Supp) 25 mg WI Q6H PRN PRN Reason: Nausea And Vomiting Sodium Chloride (Sodium Chloride 0.9% 10 Ml Flush Syringe) 10 ml IV PRN PRN PRN Reason: LINE FLUSH Review of Systems All systems: negative (except as per HPI;) Physical Examination - Vital Signs Vital Signs: Vital Signs Pulse Ox 98 09/08/20 09:13 - Physical Exam Narrative exam: Gen: nad, well-nourished; Head: normocephalic; Eyes: no gaze deviation; no ptosis; ENT: normal vocalization; CVS: warm and well-perfused; Pulm: no respiratory distress; GI: non-distended, non-protuberant; Ext: no cyanosis or edema at distal extremities; Skin: no acute rash at distal extremities; Heme: no pathologic bruising at distal extremities; Neuro: alert, oriented to name, age, month, year, surroundings, moderate dysarthria, no aphasia, CN 2 - PERRL, visual gill intact, CN 3, 4, 6 - EOMI, CN 5 - facial sensation decreased on right to light touch, CN 7 - facial movement w/ right moderate facial droop; CN 8 - hearing grossly intact, CN 9, 10 - uvula midline, CN 11 - shrug decreased on the right slightly, CN 12 - tongue midline; Motor - at least 4+/5 at left exts and at least 3+/5 at right exts; Sensory - light touch decreased at right arm/leg, Cerebellar - right fnf / hts mild difficulty due to weakness, Gait - deferred secondary to fall risk; Results - Laboratory Findings CBC and BMP: 09/08/20 09:15 09/08/20 09:15 Abnormal Lab Findings: Abnormal Labs 09/08/20 09/08/20 09:15 09:15 WBC 3.8 L MCV 81 L Lymph % (Auto) 11.3 L Sharp % (Auto) 12.6 H Lymph # (Auto) 0.4 L Seg Neutrophils % 75.5 H Chloride 108.2 H BUN 7 L Assessment and Plan 50 yo male with metastatic cerebral disease, presenting with right hemiparesis w/ dysarthria. 1. Cerebral Metastasis - recommend decadron 10 mg iv x 1 dose and then 4 mg every 8 hours if okay w/ Oncology; further workup of primary lesion per Oncology or primary team. 2. Right Hemiparesis - pt/ot evaluation/monitoring. 3. Dysarthria - st / swallow evaluation/monitoring. 4. No evidence of an acute ischemic stroke - I discontinued aspirin/statin. Venkatesh Ortiz MD Neurology
--- NOTE | 2020-09-11 15:54 | Progress Note ---
Assessment and Plan -- CVA (cerebral vascular accident), ruled out with negative brain MRI --Cerebral metastasis vs toxoplasmosis ?? MRI brain showed 2 regions of vasogenic edema in the left frontal lobe and right parietal lobe. 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 CT thorax showed no focus for malignancy CT abdomen pelvis showed diffuse lymphadenopathy -suggestive of possible lymphoma vs lymhadenopathy related to HIV, consulted hematology and ID Neurology recommended IV Decadron -will hold for now --HIV, when asked if he has high risk for HIV he then stated that he was told that he is positive for HIV about 4 days ago prior to this admission will order for repeat test, CD4 count, consult ID --History of weight loss, consult dietary Likely related to his underlying medical condition -DM type 2, BG under control, SSI as needed -- DVT prophylaxis SCDs bilateral lower extremities while in bed, patient is ambulatory. Daily course: 09/09: Pending MRI. follow MRI and neuro recommendation 09/10: MRI brain without contrast result noted, possible metastatic cervical disease - order for MRI brain with contrast, follow clinically 09/11: MRI brain with contrast showed possible metastatic disease. CT abdomen pelvis showed diffuse lymphadenopathy. Hematology and oncology consulted. Neurology recommended IV Decadron - will hold for now till can r/o toxoplasmosis. Also consulted neurosurgeon Dr. Roman and ID for further r ecommendation. We will also start on Keppra prophylactically to prevent seizure. Subjective Date of service: 09/11/20 Interval history: Patient seen and examined. Medical records and medication list reviewed. No acute event overnight noted by the RN. Patient denies any chest pain or difficulty breathing. Discussed plan of care at bedside with patient. Objective - Exam Narrative Exam: GENERAL: well-developed -[place] male lying on bed appeared to be in no discomfort. HEENT: Normocephalic. Atraumatic. No conjunctival congestion or icterus. Patient has moist mucous membranes. NECK: Supple. Trachea midline. CHEST/LUNGS: Clear to auscultated bilaterally, breathing nonlabored. No wheezes crackles or rhonchi. HEART/CARDIOVASCULAR: Regular in rate and rhythm. S1 and S2 positive. ABDOMEN: Abdomen is soft, nontender. Patient has normal bowel sounds. SKIN: There is no rash. Warm and dry. NEURO: No focal motor deficit. Follows command. Patient has staggering speech MUSCULOSKELETAL: No joint effusion or tenderness. EXTRIMITY: No edema, no cyanosis or clubbing. PSYCH: Cooperative. - Constitutional Vitals: Vital Signs - 12hr 09/11/20 09/11/20 09/11/20 04:53 07:00 09:31 Temperature 98.0 F Pulse Rate 71 82 81 Respiratory 18 16 Rate Blood Pressure 112/71 112/72 O2 Sat by Pulse 97 95 Oximetry 09/11/20 09:33 Temperature 98.8 F Pulse Rate Respiratory Rate Blood Pressure O2 Sat by Pulse Oximetry - Labs CBC & Chem 7: 09/17/20 06:09 09/15/20 09:12 HEART Score - HEART Score Troponin: Troponin T < 0.010 ng/mL (0.00-0.029) 09/08/20 09:15
[2020-09-11] MEDS ORDERED: dexAMETHasone 20 MG/5 ML VIAL IV ONE (16:36)
[2020-09-11] MEDS: levETIRAcetam 500 MG TAB PO SCH (21:51)
[2020-09-12] MEDS ORDERED: dexAMETHasone 4 MG/ML VIAL IV SCH
--- NOTE | 2020-09-12 03:53 | Hem/Onc Consultation ---
History of Present Illness - History of Present Illness heme/onc consult televisit by shazia 49yo AA man with "recent" diagnosis of HIV (details unavailable) presented to [facility] ER for R weakness, inability to talk, slurred speech. brought by ambulance says he lost 20 # recently was told he likely had a stroke since then imaging showed two brain tumors with edema heme/onc consult eval requested for guidance EXSAM: tearful no obvious rash moderately cachectic right side weaker than L (arm, leg) and R facial droop mild DATA REVIEWED BELOW Brain MRI c/w two tumors and edema Abd CT c/w mesenteric LA IMPRESSION: suspect AIDS known longer than he says absolut lymph count 400, pending CD4 count he could have WOLF infection brain tumor could be toxo, syphilis, or [employer] lymphoma RECOMMEND: neurosurgery eval consider brain spect scan ID eval requested, HIV Ab and viral load testing planned labs to include RPR, LDH consider abd tumor biopsy Laboratory Last Values WBC 3.8 K/mm3 (4.5-11.0) L 09/08/20 09:15 Hgb 12.7 gm/dl (11.8-15.2) 09/08/20 09:15 Hct 37.6 % (35.5-45.6) 09/08/20 09:15 Plt Count 290 K/mm3 (140-440) 09/08/20 09:15 Lymph % (Auto) 11.3 % (13.4-35.0) L 09/08/20 09:15 PT 13.3 Sec. (12.2-14.9) 09/08/20 09:15 INR 1.03 (0.87-1.13) 09/08/20 09:15 APTT 32.2 Sec. (24.2-36.6) 09/08/20 09:15 Creatinine 0.9 mg/dL (0.8-1.3) 09/08/20 09:15 Nasal Screen MRSA (PCR) Negative (Negative) 09/08/20 10:00 Active Medications Acetaminophen (Acetaminophen 325 Mg Tab) 650 mg PO Q4H PRN PRN Reason: Pain, Mild (1-3) Last Admin: 09/09/20 22:20 Dose: 650 mg Documented by: Bisacodyl (Bisacodyl 10 Mg Rect Supp) 10 mg DE QDAY PRN PRN Reason: Constipation Levetiracetam (Levetiracetam 500 Mg Tab) 500 mg PO BID [facility] Last Admin: 09/11/20 21:51 Dose: 500 mg Documented by: Magnesium Hydroxide (Magnesium Hydroxide (Mom) Oral Liqd Udc) 30 ml PO Q4H PRN PRN Reason: Constipation Metoclopramide HCl (Metoclopramide 10 Mg Tab) 10 mg PO Q6H PRN PRN Reason: Nausea And Vomiting Ondansetron HCl (Ondansetron 4 Mg/2 Ml Inj) 4 mg IV Q8H PRN PRN Reason: Nausea And Vomiting Promethazine HCl (Promethazine 25 Mg Rect Supp) 25 mg DE Q6H PRN PRN Reason: Nausea And Vomiting Sodium Chloride (Sodium Chloride 0.9% 10 Ml Flush Syringe) 10 ml IV PRN PRN PRN Reason: LINE FLUSH Past History Past Medical History: diabetes, other (See HPI) Past Surgical History: Other (Eye surgery) Social history: single. denies: smoking, alcohol abuse, prescription drug abuse Family history: CAD, hypertension Medications and Allergies Allergies Allergy/AdvReac Type Severity Reaction Status Date / Time peanut Allergy Swelling Verified 12/16/17 11:00 Home Medications Medication Instructions Recorded Confirmed Last Taken Type Tylenol 1,000 mg PO PRN PRN 09/08/20 09/08/20 Unknown History Active Meds: Active Medications Acetaminophen (Acetaminophen 325 Mg Tab) 650 mg PO Q4H PRN PRN Reason: Pain, Mild (1-3) Last Admin: 09/09/20 22:20 Dose: 650 mg Documented by: Bisacodyl (Bisacodyl 10 Mg Rect Supp) 10 mg DE QDAY PRN PRN Reason: Constipation Levetiracetam (Levetiracetam 500 Mg Tab) 500 mg PO BID [facility] Last Admin: 09/11/20 21:51 Dose: 500 mg Documented by: Magnesium Hydroxide (Magnesium Hydroxide (Mom) Oral Liqd Udc) 30 ml PO Q4H PRN PRN Reason: Constipation Metoclopramide HCl (Metoclopramide 10 Mg Tab) 10 mg PO Q6H PRN PRN Reason: Nausea And Vomiting Ondansetron HCl (Ondansetron 4 Mg/2 Ml Inj) 4 mg IV Q8H PRN PRN Reason: Nausea And Vomiting Promethazine HCl (Promethazine 25 Mg Rect Supp) 25 mg DE Q6H PRN PRN Reason: Nausea And Vomiting Sodium Chloride (Sodium Chloride 0.9% 10 Ml Flush Syringe) 10 ml IV PRN PRN PRN Reason: LINE FLUSH Exam - Constitutional Vitals: Last Vital Signs Temp 99.6 F 09/11/20 22:29 Pulse 89 09/11/20 22:29 Resp 16 09/11/20 22:29 BP 124/77 09/11/20 22:29 Pulse Ox 94 09/11/20 22:29 Results - Labs lab Results: Laboratory Results - last 24 hr 09/11/20 18:47 Hemoglobin A1c 5.9
[2020-09-12] MEDS: levETIRAcetam 500 MG TAB PO SCH ×2 (10:40→21:18)
[2020-09-12 14:07] LABS: BUN/Creatinine Ratio 11; Blood Urea Nitrogen 9 mg/dL (9-20); Hemolysis Index 6
[2020-09-12 14:12] LABS: Alanine Aminotransferase 18 units/L (7-56)
[2020-09-12 14:26] LABS: Bilirubin,Direct < 0.2 mg/dL (0-0.2)
--- NOTE | 2020-09-12 15:24 | Consultation ---
History of Present Illness - Reason for Consult Consult date: 09/12/20 - History of Present Illness 42-year-old male past medical history HIV, diabetes presented with right-sided weakness and slurred speech. He went to bed the night prior and was usual state of health, however he woke with the symptoms. He reports headache for the past 2 weeks which was brought a temporal location with symmetric right arm and leg weakness. He also reports a recent 20 pound weight loss. Regarding his HIV he reports being recently diagnosed, however he is not on any therapy at present time. Afebrile since admission with a white count of 3.8. No cultures for review. Not presently on antibiotics. Imaging personally viewed: Brain MRI: Areas of enhancement with vasogenic edema, consistent with metastatic lesions likely abscesses. CT chest: No evidence of malignancy. Review of Systems: Bold if positive, otherwise negative General: fevers, chills, rigors HEENT: visual disturbance, diplopia, eye pain Respiratory: cough, sputum, hemoptysis, shortness of breath Cardiovascular: chest pain, syncope Gastrointestinal: nausea, vomiting, diarrhea, abdominal pain Genitourinary: dysuria, hematuria, flank pain Musculoskeletal: neck pain, back pain, joint pain, edema Neurologic: headaches, seizures, weakness Hematologic: easy bruising or bleeding Endocrine: night sweats, acute weight loss Skin: rash, jaundice, redness Psychiatric: suicidal, homicidal ideation Past History Past Medical History: diabetes, other (See HPI) Past Surgical History: Other (Eye surgery) Social history: single. denies: smoking, alcohol abuse, prescription drug abuse Family history: CAD, hypertension Medications and Allergies Allergies Allergy/AdvReac Type Severity Reaction Status Date / Time peanut Allergy Swelling Verified 12/16/17 11:00 Home Medications Medication Instructions Recorded Confirmed Last Taken Type Tylenol 1,000 mg PO PRN PRN 09/08/20 09/08/20 Unknown History Active Meds: Active Medications Acetaminophen (Acetaminophen 325 Mg Tab) 650 mg PO Q4H PRN PRN Reason: Pain, Mild (1-3) Last Admin: 09/09/20 22:20 Dose: 650 mg Documented by: Bisacodyl (Bisacodyl 10 Mg Rect Supp) 10 mg MD QDAY PRN PRN Reason: Constipation Levetiracetam (Levetiracetam 500 Mg Tab) 500 mg PO BID [facility] Last Admin: 09/12/20 10:40 Dose: 500 mg Documented by: Magnesium Hydroxide (Magnesium Hydroxide (Mom) Oral Liqd Udc) 30 ml PO Q4H PRN PRN Reason: Constipation Metoclopramide HCl (Metoclopramide 10 Mg Tab) 10 mg PO Q6H PRN PRN Reason: Nausea And Vomiting Ondansetron HCl (Ondansetron 4 Mg/2 Ml Inj) 4 mg IV Q8H PRN PRN Reason: Nausea And Vomiting Promethazine HCl (Promethazine 25 Mg Rect Supp) 25 mg MD Q6H PRN PRN Reason: Nausea And Vomiting Sodium Chloride (Sodium Chloride 0.9% 10 Ml Flush Syringe) 10 ml IV PRN PRN PRN Reason: LINE FLUSH Physical Examination - Physical Exam Narrative exam: Physical Exam: Constitutional: Alert, cooperative. No acute distress Head, Ears, Nose: Normocephalic, atraumatic. External ears, nose normal Eyes: Conjunctivae/corneas clear. No icterus. No ptosis. Neck: Supple, no meningeal signs Oral: dentition fair, no thrush Cardiovascular: S1, S2 normal. Respiratory: Good air entry, clear to auscultation bilaterally GI: Soft, non-tender; bowel sounds normal. No peritoneal signs. Musculoskeletal: No pedal edema, no cyanosis. Skin: No rash or abscess Hem/Lymphatic: No palpable cervical or supraclavicular nodes. No lymphangitis Psych: Mood ok. Affect normal Neurological: Right-sided motor weakness - Constitutional Vitals: Vital Signs Temp Pulse Resp BP Pulse Ox 99.4 F 77 18 116/70 98 09/12/20 12:55 09/12/20 12:55 09/12/20 12:55 09/12/20 12:55 09/12/20 12:55 Temperature -Last 24 Hours Temperature 99.4 F Temperature 98.3 F Temperature 99.8 F Temperature 99.6 F Temperature 98.0 F Temperature 98.7 F Results - Labs CBC & Chem 7: 09/08/20 09:15 09/12/20 13:04 Labs: Abnormal lab results 09/12/20 09/12/20 Range/Units 13:04 13:04 Potassium 3.4 L (3.6-5.0) mmol/L Glucose 104 H (75-100) mg/dL Calcium 8.0 L (8.4-10.2) mg/dL Lactate Dehydrogenase 202 H (91-180) units/L Albumin 3.0 L (3.9-5) g/dL Assessment and Plan Cultures: None A/P: 50-year-old man past medical history HIV, diabetes presented with right-s ided weakness found to have 2 brain tumors #Brain tumors: 1 on each side with vasogenic edema. Agree with plans for neurosurgical evaluation as well as rule out of infectious potential causes. Lesions do not have the typical ring-enhancing appearance of toxoplasma. #HIV: Unclear how long he has had it for in the current state of immune system. Not on treatment. #Diabetes: tight glycemic control for best outcomes. Recs: -Ordered HIV viral load and CD4 count -Ordered RPR and syphilis antibody -Ordered toxoplasmosis antibodies -Ordered AFB blood culture on the presumption CD4 count will be low. -Agree with oncology recommendation patient may need tissue diagnosis of lesions. -Ordered CRP Thank you for the consult, we will continue to follow. Mathew Talavera MD [facility] ([facility] O: [phone] F: [phone]
[2020-09-12] MEDS ORDERED: POTASSIUM CHLORIDE ER 20 MEQ TAB PO NR (17:13)
--- NOTE | 2020-09-12 17:16 | Progress Note ---
Assessment and Plan -- CVA (cerebral vascular accident), ruled out with negative brain MRI --Cerebral metastasis vs toxoplasmosis ?? MRI brain showed 2 regions of vasogenic edema in the left frontal lobe and right parietal lobe. 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 CT thorax showed no focus for malignancy CT abdomen pelvis showed diffuse lymphadenopathy -suggestive of possible lymphoma vs lymhadenopathy related to HIV, consulted hematology and ID Neurology recommended IV Decadron -will hold for now --HIV, when asked if he has high risk for HIV he then stated that he was told that he is positive for HIV about 4 days ago prior to this admission will order for repeat test, CD4 count, consult ID --History of weight loss, consult dietary Likely related to his underlying medical condition -DM type 2, BG under control, SSI as needed -- DVT prophylaxis SCDs bilateral lower extremities while in bed, patient is ambulatory. Daily course: 09/09: Pending MRI. follow MRI and neuro recommendation 09/10: MRI brain without contrast result noted, possible metastatic cervical disease - order for MRI brain with contrast, follow clinically 09/11: MRI brain with contrast showed possible metastatic disease. CT abdomen pelvis showed diffuse lymphadenopathy. Hematology and oncology consulted. Neurology recommended IV Decadron - will hold for now till can r/o toxoplasmosis. Also consulted neurosurgeon Dr. Roman and ID for further r ecommendation. We will also start on Keppra prophylactically to prevent seizure. 09/12: Noted ID recommendation. Stable lesion most likely lymphoma per ID. Wait for neurosurgery recommendation. CD4 count, serology for toxoplasma, RPR still pending. Subjective Date of service: 09/12/20 Interval history: Patient seen and examined. Medical records and medication list reviewed. No acute event overnight noted by the RN. Patient denies any chest pain or difficulty breathing. Discussed plan of care at bedside with patient. Objective - Exam Narrative Exam: GENERAL: well-developed -[place]ongolian male lying on bed appeared to be in no discomfort. HEENT: Normocephalic. Atraumatic. No conjunctival congestion or icterus. Patient has moist mucous membranes. NECK: Supple. Trachea midline. CHEST/LUNGS: Clear to auscultated bilaterally, breathing nonlabored. No wheezes crackles or rhonchi. HEART/CARDIOVASCULAR: Regular in rate and rhythm. S1 and S2 positive. ABDOMEN: Abdomen is soft, nontender. Patient has normal bowel sounds. SKIN: There is no rash. Warm and dry. NEURO: No focal motor deficit. Follows command. Patient has staggering speech MUSCULOSKELETAL: No joint effusion or tenderness. EXTRIMITY: No edema, no cyanosis or clubbing. PSYCH: Cooperative. - Constitutional Vitals: Vital Signs - 12hr 09/12/20 09/12/20 09/12/20 07:55 08:29 12:55 Temperature 98.3 F 99.4 F Pulse Rate 72 72 77 Respiratory 18 18 Rate Blood Pressure 114/77 116/70 O2 Sat by Pulse 97 98 Oximetry - Labs CBC & Chem 7: 09/17/20 06:09 09/15/20 09:12 Labs: Abnormal lab results 09/12/20 09/12/20 Range/Units 13:04 13:04 Potassium 3.4 L (3.6-5.0) mmol/L Glucose 104 H (75-100) mg/dL Calcium 8.0 L (8.4-10.2) mg/dL Lactate Dehydrogenase 202 H (91-180) units/L Albumin 3.0 L (3.9-5) g/dL HEART Score - HEART Score Troponin: Troponin T < 0.010 ng/mL (0.00-0.029) 09/08/20 09:15
--- NOTE | 2020-09-12 19:15 | Consultation ---
History of Present Illness Consult date: 09/12/20 Reason for Consult: Brain lesions Chief complaint: Right sided weakness History of present illness: Mr. Aguiar is a 50 y/o Male w/ history of AIDS, admitted to [facility] 09/08 with slurred speech and right hemiparesis. Code stroke was activated, patient not a candidate for TPA. He is currently living in the [facility]. He has undergone extensive evaulation including CT/MRI brain and CT chest and abdomen. MRI brain revealed small areas of homogenous enhancement involving the left frontal and right parietal lobes, sub-centimeter in size. CT abdomen revealed multiple lymph nodes but no dominant mass. Presently, he reports mild headache without nausea. He endorses right sided weakness. He denies any seizure like event, dizziness, light-headedness or significant balance instability. Past History Past Medical History: diabetes, other (See HPI) Past Surgical History: Other (Eye surgery) Social history: single. denies: smoking, alcohol abuse, prescription drug abuse Family history: CAD, hypertension Medications and Allergies Allergies Allergy/AdvReac Type Severity Reaction Status Date / Time peanut Allergy Swelling Verified 12/16/17 11:00 Home Medications Medication Instructions Recorded Confirmed Last Taken Type Tylenol 1,000 mg PO PRN PRN 09/08/20 09/08/20 Unknown History Active Meds: Active Medications Acetaminophen (Acetaminophen 325 Mg Tab) 650 mg PO Q4H PRN PRN Reason: Pain, Mild (1-3) Last Admin: 09/09/20 22:20 Dose: 650 mg Documented by: Bisacodyl (Bisacodyl 10 Mg Rect Supp) 10 mg MN QDAY PRN PRN Reason: Constipation Levetiracetam (Levetiracetam 500 Mg Tab) 500 mg PO BID BUDDY Last Admin: 09/12/20 10:40 Dose: 500 mg Documented by: Magnesium Hydroxide (Magnesium Hydroxide (Mom) Oral Liqd Udc) 30 ml PO Q4H PRN PRN Reason: Constipation Metoclopramide HCl (Metoclopramide 10 Mg Tab) 10 mg PO Q6H PRN PRN Reason: Nausea And Vomiting Ondansetron HCl (Ondansetron 4 Mg/2 Ml Inj) 4 mg IV Q8H PRN PRN Reason: Nausea And Vomiting Promethazine HCl (Promethazine 25 Mg Rect Supp) 25 mg MN Q6H PRN PRN Reason: Nausea And Vomiting Sodium Chloride (Sodium Chloride 0.9% 10 Ml Flush Syringe) 10 ml IV PRN PRN PRN Reason: LINE FLUSH Review of Systems All systems: negative (what is specified in HPI) Physical Examination - Vital Signs Vital Signs: Vital Signs Pulse Ox 98 09/08/20 09:13 - Physical Exam Narrative exam: seen and examined no acute distress NC/AT RRR breathing non-labored abdomen soft no cyanosis or clubbing A&Ox3 CNII-XII intact motor strength exam notable for R hemiparesis 4/5 R pronator drift sensation intact to light touch reflexes +2 at patella and biceps Results - Laboratory Findings CBC and BMP: 09/08/20 09:15 09/12/20 13:04 Abnormal Lab Findings: Abnormal Labs 09/08/20 09/08/20 09/12/20 09:15 09:15 13:04 WBC 3.8 L MCV 81 L Lymph % (Auto) 11.3 L Trigg % (Auto) 12.6 H Lymph # (Auto) 0.4 L Seg Neutrophils % 75.5 H Potassium 3.4 L Chloride 108.2 H BUN 7 L Glucose 104 H Calcium 8.0 L Lactate Dehydrogenase Albumin 09/12/20 13:04 WBC MCV Lymph % (Auto) Trigg % (Auto) Lymph # (Auto) Seg Neutrophils % Potassium Chloride BUN Glucose Calcium Lactate Dehydrogenase 202 H Albumin 3.0 L Assessment and Plan 50 y/o M w/ newly discovered cerebral lesions in the context of AIDS - no surgical intervention at this time - will need neuro-oncology evaluation for Lymphoma evaluation - may consider high volume LP for flow cytometry - hold steroids until diagnostic studies are obtained - please notify if questions
[2020-09-13] MEDS: levETIRAcetam 500 MG TAB PO SCH ×2 (09:13→21:34)
--- NOTE | 2020-09-13 09:40 | Hem/Onc Progress Note ---
Subjective Interval history: heme/onc data review heme/onc consult televisit by shazia 49yo AA man with "recent" diagnosis of HIV (details unavailable) presented to [facility] ER for R weakness, inability to talk, slurred speech. 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 IMPRESSION: AIDS with brain tumors and LA r/o WOLF brain tumors could be toxo, but don't look like regular toxo appearance [employer] lymphoma is a possibility RECOMMEND: consider brain spect scan consider abd tumor biopsy consider transfer to tertiary [facility] for bx and possible chemotherapy can't give him lymphoma treatment without a biopsy consider empiric toxoplasmosis treatment steroids ELENA to help his weakness Active Medications Acetaminophen (Acetaminophen 325 Mg Tab) 650 mg PO Q4H PRN PRN Reason: Pain, Mild (1-3) Last Admin: 09/09/20 22:20 Dose: 650 mg Documented by: Bisacodyl (Bisacodyl 10 Mg Rect Supp) 10 mg MI QDAY PRN PRN Reason: Constipation Levetiracetam (Levetiracetam 500 Mg Tab) 500 mg PO BID BUDDY Last Admin: 09/13/20 09:13 Dose: 500 mg Documented by: Magnesium Hydroxide (Magnesium Hydroxide (Mom) Oral Liqd Udc) 30 ml PO Q4H PRN PRN Reason: Constipation Metoclopramide HCl (Metoclopramide 10 Mg Tab) 10 mg PO Q6H PRN PRN Reason: Nausea And Vomiting Ondansetron HCl (Ondansetron 4 Mg/2 Ml Inj) 4 mg IV Q8H PRN PRN Reason: Nausea And Vomiting Promethazine HCl (Promethazine 25 Mg Rect Supp) 25 mg MI Q6H PRN PRN Reason: Nausea And Vomiting Sodium Chloride (Sodium Chloride 0.9% 10 Ml Flush Syringe) 10 ml IV PRN PRN PRN Reason: LINE FLUSH Vital Signs Temp Pulse Resp BP Pulse Ox 98.0 F 83 18 116/82 95 09/13/20 07:35 09/13/20 08:47 09/13/20 07:35 09/13/20 07:35 09/13/20 07:35 Temperature -Last 24 Hours Temperature 98.0 F Temperature 98.6 F Temperature 99.4 F Temperature 98.4 F Temperature 99.6 F Temperature 99.4 F Laboratory Last Values WBC 3.8 K/mm3 (4.5-11.0) L 09/08/20 09:15 Hgb 12.7 gm/dl (11.8-15.2) 09/08/20 09:15 Hct 37.6 % (35.5-45.6) 09/08/20 09:15 Plt Count 290 K/mm3 (140-440) 09/08/20 09:15 PT 13.3 Sec. (12.2-14.9) 09/08/20 09:15 INR 1.03 (0.87-1.13) 09/08/20 09:15 APTT 32.2 Sec. (24.2-36.6) 09/08/20 09:15 Creatinine 0.8 mg/dL (0.8-1.3) 09/12/20 13:04 Lactate Dehydrogenase 202 units/L (91-180) H 09/12/20 13:04 Syphilis IgG Antibody Nonreactive (NonReactive) 09/12/20 13:04 Objective - Constitutional Vitals: Last Vital Signs Temp 98.0 F 09/13/20 07:35 Pulse 83 09/13/20 08:47 Resp 18 09/13/20 07:35 BP 116/82 09/13/20 07:35 Pulse Ox 95 09/13/20 07:35 - Labs Lab Results: Laboratory Results - last 24 hr 09/12/20 09/12/20 09/12/20 13:04 13:04 13:04 Sodium 138 Potassium 3.4 L Chloride 105.4 Carbon Dioxide 26 Anion Gap 10 BUN 9 Creatinine 0.8 Estimated GFR > 60 BUN/Creatinine Ratio 11 Glucose 104 H Calcium 8.0 L Total Bilirubin < 0.20 Direct Bilirubin < 0.2 Indirect Bilirubin 0.0 AST 19 ALT 18 Alkaline Phosphatase 79 Lactate Dehydrogenase 202 H C-Reactive Protein Total Protein 7.3 Albumin 3.0 L Albumin/Globulin Ratio 0.7 Syphilis IgG Antibody Nonreactive 09/13/20 05:19 Sodium Potassium Chloride Carbon Dioxide Anion Gap BUN Creatinine Estimated GFR BUN/Creatinine Ratio Glucose Calcium Total Bilirubin Direct Bilirubin Indirect Bilirubin AST ALT Alkaline Phosphatase Lactate Dehydrogenase C-Reactive Protein 0.30 Total Protein Albumin Albumin/Globulin Ratio Syphilis IgG Antibody Medications & Allergies - Medications Allergies/Adverse Reactions: Allergies peanut Allergy (Verified 12/16/17 11:00) Swelling Home Medications: Home Medications Medication Instructions Recorded Confirmed Last Taken Type Tylenol 1,000 mg PO PRN PRN 09/08/20 09/08/20 Unknown History Active Medications: Generic Name Dose Route Start Last Admin Trade Name Freq PRN Reason Stop Dose Admin Acetaminophen 650 mg 09/08/20 12:23 09/09/20 22:20 Acetaminophen 325 Mg Tab PO 650 mg Q4H PRN Administration Pain, Mild (1-3) Bisacodyl 10 mg 09/08/20 12:23 Bisacodyl 10 Mg Rect Supp MI QDAY PRN Constipation Levetiracetam 500 mg 09/11/20 22:00 09/13/20 09:13 Levetiracetam 500 Mg Tab PO 500 mg BID BUDDY Administration Magnesium Hydroxide 30 ml 09/08/20 12:23 Magnesium Hydroxide (Mom) Oral Liqd Udc PO Q4H PRN Constipation Metoclopramide HCl 10 mg 09/08/20 12:23 Metoclopramide 10 Mg Tab PO Q6H PRN Nausea And Vomiting Ondansetron HCl 4 mg 09/08/20 12:23 Ondansetron 4 Mg/2 Ml Inj IV Q8H PRN Nausea And Vomiting Promethazine HCl 25 mg 09/08/20 12:23 Promethazine 25 Mg Rect Supp MI Q6H PRN Nausea And Vomiting Sodium Chloride 10 ml 09/08/20 12:23 Sodium Chloride 0.9% 10 Ml Flush Syringe IV PRN PRN LINE FLUSH
--- NOTE | 2020-09-13 10:52 | Hem/Onc Progress Note ---
Subjective Interval history: televisit by shazia 49yo AA man with "recent" diagnosis of HIV (details unavailable) came from shelter, has guard in room presented to [facility] ER for R weakness, inability to talk, slurred speech. 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 IMPRESSION: AIDS with brain tumors and abd Lymphadenopathy brain tumors could be toxo, but don't look like regular toxo appearance [employer] lymphoma is a possibility abd Lymphadenopathy, r/o WOLF mild microcytic anemia, r/o iron defic RECOMMEND: consider brain spect scan; LP is reasonable but doubt will give answer consider abd tumor biopsy consider transfer to tertiary care hospital for bx and possible chemotherapy if this were done, it would need to be excision, not core biopsy can't give him lymphoma treatment without a biopsy consider steroids to help his weakness--won't affect biopsy interpretation d/w ID Dr. Talavera--maybe start empiritc toxo treatment Laboratory Last Values WBC 3.8 K/mm3 (4.5-11.0) L 09/08/20 09:15 Hgb 12.7 gm/dl (11.8-15.2) 09/08/20 09:15 Hct 37.6 % (35.5-45.6) 09/08/20 09:15 Plt Count 290 K/mm3 (140-440) 09/08/20 09:15 PT 13.3 Sec. (12.2-14.9) 09/08/20 09:15 INR 1.03 (0.87-1.13) 09/08/20 09:15 APTT 32.2 Sec. (24.2-36.6) 09/08/20 09:15 Creatinine 0.8 mg/dL (0.8-1.3) 09/12/20 13:04 Nasal Screen MRSA (PCR) Negative (Negative) 09/08/20 10:00 Syphilis IgG Antibody Nonreactive (NonReactive) 09/12/20 13:04 Objective - Constitutional Vitals: Last Vital Signs Temp 98.0 F 09/13/20 07:35 Pulse 83 09/13/20 08:47 Resp 18 09/13/20 07:35 BP 116/82 09/13/20 07:35 Pulse Ox 95 09/13/20 07:35 - Labs Lab Results: Laboratory Results - last 24 hr 09/12/20 09/12/20 09/12/20 13:04 13:04 13:04 Sodium 138 Potassium 3.4 L Chloride 105.4 Carbon Dioxide 26 Anion Gap 10 BUN 9 Creatinine 0.8 Estimated GFR > 60 BUN/Creatinine Ratio 11 Glucose 104 H Calcium 8.0 L Total Bilirubin < 0.20 Direct Bilirubin < 0.2 Indirect Bilirubin 0.0 AST 19 ALT 18 Alkaline Phosphatase 79 Lactate Dehydrogenase 202 H C-Reactive Protein Total Protein 7.3 Albumin 3.0 L Albumin/Globulin Ratio 0.7 Syphilis IgG Antibody Nonreactive 09/13/20 05:19 Sodium Potassium Chloride Carbon Dioxide Anion Gap BUN Creatinine Estimated GFR BUN/Creatinine Ratio Glucose Calcium Total Bilirubin Direct Bilirubin Indirect Bilirubin AST ALT Alkaline Phosphatase Lactate Dehydrogenase C-Reactive Protein 0.30 Total Protein Albumin Albumin/Globulin Ratio Syphilis IgG Antibody Medications & Allergies - Medications Allergies/Adverse Reactions: Allergies peanut Allergy (Verified 12/16/17 11:00) Swelling Home Medications: Home Medications Medication Instructions Recorded Confirmed Last Taken Type Tylenol 1,000 mg PO PRN PRN 09/08/20 09/08/20 Unknown History Active Medications: Generic Name Dose Route Start Last Admin Trade Name Freq PRN Reason Stop Dose Admin Acetaminophen 650 mg 09/08/20 12:23 09/09/20 22:20 Acetaminophen 325 Mg Tab PO 650 mg Q4H PRN Administration Pain, Mild (1-3) Bisacodyl 10 mg 09/08/20 12:23 Bisacodyl 10 Mg Rect Supp VA QDAY PRN Constipation Dexamethasone 4 mg 09/13/20 12:00 Dexamethasone 4 Mg/Ml Vial IV Q6HR BUDDY Levetiracetam 500 mg 09/11/20 22:00 09/13/20 09:13 Levetiracetam 500 Mg Tab PO 500 mg BID BUDDY Administration Magnesium Hydroxide 30 ml 09/08/20 12:23 Magnesium Hydroxide (Mom) Oral Liqd Udc PO Q4H PRN Constipation Metoclopramide HCl 10 mg 09/08/20 12:23 Metoclopramide 10 Mg Tab PO Q6H PRN Nausea And Vomiting Ondansetron HCl 4 mg 09/08/20 12:23 Ondansetron 4 Mg/2 Ml Inj IV Q8H PRN Nausea And Vomiting Promethazine HCl 25 mg 09/08/20 12:23 Promethazine 25 Mg Rect Supp VA Q6H PRN Nausea And Vomiting Sodium Chloride 10 ml 09/08/20 12:23 Sodium Chloride 0.9% 10 Ml Flush Syringe IV PRN PRN LINE FLUSH
[2020-09-13] MEDS: dexAMETHasone 4 MG/ML VIAL IV SCH ×2 (11:44→17:23)
--- NOTE | 2020-09-13 14:10 | Progress Note ---
Assessment and Plan -- CVA (cerebral vascular accident), ruled out with negative brain MRI --Cerebral metastasis vs toxoplasmosis ?? MRI brain showed 2 regions of vasogenic edema in the left frontal lobe and right parietal lobe. 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 CT thorax showed no focus for malignancy CT abdomen pelvis showed diffuse lymphadenopathy -suggestive of possible lymphoma vs lymhadenopathy related to HIV, consulted hematology and ID Neurology recommended IV Decadron -will hold for now --HIV, when asked if he has high risk for HIV he then stated that he was told that he is positive for HIV about 4 days ago prior to this admission will order for repeat test, CD4 count, consult ID --History of weight loss, consult dietary Likely related to his underlying medical condition -DM type 2, BG under control, SSI as needed -- DVT prophylaxis SCDs bilateral lower extremities while in bed, patient is ambulatory. Daily course: 09/09: Pending MRI. follow MRI and neuro recommendation 09/10: MRI brain without contrast result noted, possible metastatic cervical disease - order for MRI brain with contrast, follow clinically 09/11: MRI brain with contrast showed possible metastatic disease. CT abdomen pelvis showed diffuse lymphadenopathy. Hematology and oncology consulted. Neurology recommended IV Decadron - will hold for now till can r/o toxoplasmosis. Also consulted neurosurgeon Dr. Roman and ID for further r ecommendation. We will also start on Keppra prophylactically to prevent seizure. 09/12: Noted ID recommendation. Stable lesion most likely lymphoma per ID. Wait for neurosurgery recommendation. CD4 count, serology for toxoplasma, RPR still pending. 09/13: Pending LP and toxoplasmosis serology. Pending CD4 count. Follow ID and neurology recommendation. Subjective Date of service: 09/13/20 Interval history: Patient seen and examined. Medical records and medication list reviewed. No acute event overnight noted by the RN. Patient denies any chest pain or difficulty breathing. Discussed plan of care at bedside with patient. Objective - Exam Narrative Exam: GENERAL: well-developed -[place] male lying on bed appeared to be in no discomfort. HEENT: Normocephalic. Atraumatic. No conjunctival congestion or icterus. Patient has moist mucous membranes. NECK: Supple. Trachea midline. CHEST/LUNGS: Clear to auscultated bilaterally, breathing nonlabored. No wheezes crackles or rhonchi. HEART/CARDIOVASCULAR: Regular in rate and rhythm. S1 and S2 positive. ABDOMEN: Abdomen is soft, nontender. Patient has normal bowel sounds. SKIN: There is no rash. Warm and dry. NEURO: No focal motor deficit. Follows command. Patient has staggering speech MUSCULOSKELETAL: No joint effusion or tenderness. EXTRIMITY: No edema, no cyanosis or clubbing. PSYCH: Cooperative. - Constitutional Vitals: Vital Signs - 12hr 09/13/20 09/13/20 09/13/20 04:00 07:35 08:47 Temperature 98.6 F 98.0 F Pulse Rate 83 81 83 Respiratory 18 18 Rate Blood Pressure 104/66 116/82 O2 Sat by Pulse 94 95 Oximetry - Labs CBC & Chem 7: 09/17/20 06:09 09/15/20 09:12 Labs: Abnormal lab results 09/12/20 Range/Units 13:04 Lactate Dehydrogenase 202 H (91-180) units/L Albumin 3.0 L (3.9-5) g/dL HEART Score - HEART Score Troponin: Troponin T < 0.010 ng/mL (0.00-0.029) 09/08/20 09:15
--- NOTE | 2020-09-13 17:57 | Progress Note ---
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 Agree with plans for neurosurgical evaluation as well as rule out of infectious potential causes. Lesions do not have the typical ring-enhancing appearance of toxoplasma, feel more likely to be lymphoma #HIV: Unclear how long he has had it for in the current state of immune system. Not on treatment. #Diabetes: tight glycemic control for best outcomes. Recs: -Ordered HIV viral load and CD4 count -Ordered toxoplasmosis antibodies -Ordered AFB blood culture on the presumption CD4 count will be low. -Agree with need for abdominal lymph node biopsy -Started Bactrim 2x DS q12h as empiric toxo therapy in the meantime pending diag nosis (or normal CD4 count). If not other definitive diagnosis in a few weeks would re-image to see if improvement on MRI D/W Dr. Figueroa Thank you for the consult, we will continue to follow. Mathew Talavera MD [facility] O: [phone] F: [phone] Subjective Date of service: 09/13/20 Interval history: Afebrile, normal white count. Objective - Exam Narrative Exam: Physical Exam: Constitutional: Alert, cooperative. No acute distress Head, Ears, Nose: Normocephalic, atraumatic. External ears, nose normal Eyes: Conjunctivae/corneas clear. No icterus. No ptosis. Neck: Supple, no meningeal signs Oral: dentition fair, no thrush Cardiovascular: S1, S2 normal. Respiratory: Good air entry, clear to auscultation bilaterally GI: Soft, non-tender; bowel sounds normal. No peritoneal signs. Musculoskeletal: No pedal edema, no cyanosis. Skin: No rash or abscess Hem/Lymphatic: No palpable cervical or supraclavicular nodes. No lymphangitis Psych: Mood ok. Affect normal Neurological: Right-sided motor weakness - Constitutional Vitals: Vital Signs Temp Pulse Resp BP Pulse Ox 98.0 F 83 18 116/82 95 09/13/20 07:35 09/13/20 08:47 09/13/20 07:35 09/13/20 07:35 09/13/20 07:35 Temperature -Last 24 Hours Temperature 98.0 F Temperature 98.6 F Temperature 99.4 F Temperature 98.4 F - Labs CBC & Chem 7: 09/13/20 16:39 09/12/20 13:04
[2020-09-13 18:03] LABS: INR 1.06 (0.87-1.13); Partial Thromboplastin Time 35.7 Sec. (24.2-36.6)
[2020-09-13] MEDS: SULFAMETHOXAZOLE/TRIMETHOPRIM 800/160MG DS TAB PO SCH (21:34)
[2020-09-14] MEDS: dexAMETHasone 4 MG/ML VIAL IV SCH ×4 (02:16→22:22)
[2020-09-14 06:06] LABS: Iron 63 ug/dL (49-181); Total Iron Binding Capacity 211 mcg/dL (250-450)
[2020-09-14] MEDS: levETIRAcetam 500 MG TAB PO SCH ×3 (10:45→22:21)
[2020-09-14] MEDS: SULFAMETHOXAZOLE/TRIMETHOPRIM 800/160MG DS TAB PO SCH ×3 (10:45→22:21)
[2020-09-14] MEDS ORDERED: POTASSIUM CHLORIDE ER 20 MEQ TAB PO ONE (12:12)
[2020-09-14] MEDS ORDERED: POTASSIUM CHLORIDE ER 20 MEQ TAB PO SCH (14:30)
--- NOTE | 2020-09-14 14:47 | Progress Note ---
Assessment and Plan -- CVA (cerebral vascular accident), ruled out with negative brain MRI --Cerebral metastasis vs toxoplasmosis ?? MRI brain showed 2 regions of vasogenic edema in the left frontal lobe and right parietal lobe. 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 CT thorax showed no focus for malignancy CT abdomen pelvis showed diffuse lymphadenopathy -suggestive of possible lymphoma vs lymhadenopathy related to HIV, consulted hematology and ID Neurology recommended IV Decadron -will hold for now till we r/o infectious etiology --HIV, when asked if he has high risk for HIV he then stated that he was told that he is positive for HIV about 4 days ago prior to this admission will order for repeat test, CD4 count, consult ID --History of weight loss, consult dietary Likely related to his underlying medical condition -DM type 2, BG under control, SSI as needed -- DVT prophylaxis SCDs bilateral lower extremities while in bed, patient is ambulatory. Daily course: 09/09: Pending MRI. follow MRI and neuro recommendation 09/10: MRI brain without contrast result noted, possible metastatic cervical disease - order for MRI brain with contrast, follow clinically 09/11: MRI brain with contrast showed possible metastatic disease. CT abdomen pelvis showed diffuse lymphadenopathy. Hematology and oncology consulted. Neurology recommended IV Decadron - will hold for now till can r/o toxoplasmosis. Also consulted neurosurgeon Dr. Roman and ID for further recommendation. We will also start on Keppra prophylactically to prevent seizure. 09/12: Noted ID recommendation. Stable lesion most likely lymphoma per ID. Wait for neurosurgery recommendation. CD4 count, serology for toxoplasma, RPR still pending. 09/13: Pending LP and toxoplasmosis serology. Pending CD4 count. Follow ID and neurology recommendation. 09/14: Plan for LP today but could not be performed by the radiologist as it was a difficult tap. Pending serology for toxoplasmosis, CD4 count. Patient started on Bactrim pending CD4 count.. Discussed with ID and recommending lymph node biopsy. Consulted IR for abdominal lymph node biopsy to get to confirm diagnosis. We will continue to follow Subjective Date of service: 09/14/20 Interval history: Patient seen and examined. Medical records and medication list reviewed. No acute event overnight noted by the RN. Patient denies any chest pain or difficulty breathing. Patient is tolerating diet. Discussed plan of care at bedside with patient. Pending lymph node biopsy Objective - Exam Narrative Exam: GENERAL: well-developed -[place]oven[place] male lying on bed appeared to be in no discomfort. HEENT: Normocephalic. Atraumatic. No conjunctival congestion or icterus. Patient has moist mucous membranes. NECK: Supple. Trachea midline. CHEST/LUNGS: Clear to auscultated bilaterally, breathing nonlabored. No wheezes crackles or rhonchi. HEART/CARDIOVASCULAR: Regular in rate and rhythm. S1 and S2 positive. ABDOMEN: Abdomen is soft, nontender. Patient has normal bowel sounds. SKIN: There is no rash. Warm and dry. NEURO: No focal motor deficit. Follows command. Patient has staggering speech MUSCULOSKELETAL: No joint effusion or tenderness. EXTRIMITY: No edema, no cyanosis or clubbing. PSYCH: Cooperative. - Constitutional Vitals: Vital Signs - 12hr 09/14/20 09/14/20 09/14/20 04:06 08:51 13:41 Temperature 99.0 F 97.8 F 98.4 F Pulse Rate 77 87 99 H Respiratory 15 18 18 Rate Blood Pressure 123/71 114/71 115/73 O2 Sat by Pulse 91 93 93 Oximetry - Labs CBC & Chem 7: 09/13/20 16:39 09/12/20 13:04 Labs: Abnormal lab results 09/14/20 Range/Units 04:52 TIBC 211 L (250-450) mcg/dL HEART Score - HEART Score Troponin: Troponin T < 0.010 ng/mL (0.00-0.029) 09/08/20 09:15
--- NOTE | 2020-09-14 15:11 | Fluoroscopy Report ---
LUMBAR PUNCTURE INDICATION : Stroke symptoms, possible lymphoma, abnormal MR brain. HIV positive. PROCEDURE: The risks (including but not limited to bleeding, infection, and spinal headache) and radha efits were explained to the patient and informed consent was obtained. A time out procedure was perf ormed. The procedure site was prepped and draped in the usual sterile fashion and lidocaine was used for local anesthesia. Under fluoroscopic guidance, a 22-gauge spinal needle was advanced into the L3-4 interlaminar space. A traumatic bloody tap was obtained. In fact, the CSF was markedly bloody on all samples. A crosstabl e lateral view was obtained to confirm intrathecal placement of the needle. The opening pressure was 100 mm H2O which was calculated by adding the length of the needle (9 cm) to the height of the CSF co lumn. 4 separate collection tubes were used to obtain 1 mL of CSF each. Samples were sent to the lab per the ordering physician specifications for further evaluation. The patient tolerated the procedure well with no complications. IMPRESSION: Successful lumbar puncture as outlined above. Opening pressure was 100 mm H20. Traumatic lumbar puncture versus bloody CSF fluid. Fluoroscopic time: 1.2 minutes Number of fluoroscopic images: 3 Signer Name: Isidoro Clark Jr, MD Signed: 09/14/2020 3:07 PM Workstation Name: [id number]
[2020-09-14 16:02] LABS: HIV-1 RNA QN PCR 6.64 Log cps/mL
--- NOTE | 2020-09-14 18:41 | Progress Note ---
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 Agree with plans for neurosurgical evaluation as well as rule out of infectious potential causes. Lesions do not have the typical ring-enhancing appearance of toxoplasma, feel more likely to be lymphoma #HIV: Unclear how long he has had it for in the current state of immune system. Not on treatment. Viral load 4.6 million, presumed very low CD4 count. #Diabetes: tight glycemic control for best outcomes. Recs: -Ordered CD4 count -Ordered toxoplasmosis antibodies, will take some time to come back. -Ordered AFB blood culture on the presumption CD4 count will be low. -Agree with need for abdominal lymph node biopsy -Started Bactrim 2x DS q12h as empiric toxo therapy in the meantime pending diagnosis (or normal CD4 count). If not other definitive diagnosis in a few weeks would re-image to see if improvement on MRI -Given he is unfunded, care coordination as an outpatient will be difficult. Believe he needs lymph node biopsy prior to discharge, as well as follow-up with [place] [facility]. He will also need oncology follow-up. Thank you for the consult, we will continue to follow. Mathew Talavera MD [facility] ([facility] O: [phone] F: [phone] Subjective Date of service: 09/14/20 Interval history: Afebrile, no acute changes at present. HIV viral load 4.60 million Objective - Exam Narrative Exam: Physical Exam: Constitutional: Alert, cooperative. No acute distress Head, Ears, Nose: Normocephalic, atraumatic. External ears, nose normal Eyes: Conjunctivae/corneas clear. No icterus. No ptosis. Neck: Supple, no meningeal signs Oral: dentition fair, no thrush Cardiovascular: S1, S2 normal. Respiratory: Good air entry, clear to auscultation bilaterally GI: Soft, non-tender; bowel sounds normal. No peritoneal signs. Musculoskeletal: No pedal edema, no cyanosis. Skin: No rash or abscess Hem/Lymphatic: No palpable cervical or supraclavicular nodes. No lymphangitis Psych: Mood ok. Affect normal Neurological: Right-sided motor weakness - Constitutional Vitals: Vital Signs Temp Pulse Resp BP Pulse Ox 98.4 F 99 H 18 115/73 93 09/14/20 13:41 09/14/20 13:41 09/14/20 13:41 09/14/20 13:41 09/14/20 13:41 Temperature -Last 24 Hours Temperature 98.4 F Temperature 97.8 F Temperature 99.0 F Temperature 97.7 F Temperature 99.4 F - Labs CBC & Chem 7: 09/13/20 16:39 09/12/20 13:04 Labs: Abnormal lab results 09/13/20 09/14/20 Range/Units 05:19 04:52 TIBC 211 L (250-450) mcg/dL HIV-1 RNA PCR copies/ml [id number] H Copies/mL HIV-1 RNA (PCR) log 6.64 H Log cps/mL
[2020-09-14] MEDS: ACETAMINOPHEN 325 MG TAB PO PRN (22:21)
--- NOTE | 2020-09-15 08:45 | Progress Note ---
Assessment and Plan Assessment and plan: -- CVA (cerebral vascular accident), ruled out with negative brain MRI --Cerebral metastasis vs toxoplasmosis ?? MRI brain showed 2 regions of vasogenic edema in the left frontal lobe and right parietal lobe. 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 CT thorax showed no focus for malignancy CT abdomen pelvis showed diffuse lymphadenopathy -suggestive of possible lymphoma vs lymhadenopathy related to HIV, consulted hematology and ID Neurology recommended IV Decadron -will hold for now till we r/o infectious e tiology --HIV, when asked if he has high risk for HIV he then stated that he was told that he is positive for HIV about 4 days ago prior to this admission will order for repeat test, CD4 count, consult ID --History of weight loss, consult dietary Likely related to his underlying medical condition -DM type 2, BG under control, SSI as needed -- DVT prophylaxis SCDs bilateral lower extremities while in bed, patient is ambulatory. Daily course: 09/09: Pending MRI. follow MRI and neuro recommendation 09/10: MRI brain without contrast result noted, possible metastatic cervical disease - order for MRI brain with contrast, follow clinically 09/11: MRI brain with contrast showed possible metastatic disease. CT abdomen pelvis showed diffuse lymphadenopathy. Hematology and oncology consulted. Neurology recommended IV Decadron - will hold for now till can r/o toxoplasmo sis. Also consulted neurosurgeon Dr. Roman and ID for further recommendation. We will also start on Keppra prophylactically to prevent seizure. 09/12: Noted ID recommendation. Stable lesion most likely lymphoma per ID. Wait for neurosurgery recommendation. CD4 count, serology for toxoplasma, RPR still pending. 09/13: Pending LP and toxoplasmosis serology. Pending CD4 count. Follow ID and neurology recommendation. 09/14: Plan for LP today but could not be performed by the radiologist as it was a difficult tap. Pending serology for toxoplasmosis, CD4 count. Patient started on Bactrim pending CD4 count.. Discussed with ID and recommending lymph node biopsy. Consulted IR for abdominal lymph node biopsy to get to confirm diagnosis. We will continue to follow 09/15: Patient pending lymph node biopsy. Coordination of care of patient was concerning to ID and I agree with such impression. Will discuss with case management to assist History Interval history: Patient seen and examined. Medical records and medication list reviewed. No acute event overnight noted by the RN. Patient denies any chest pain or difficulty breathing. Patient is tolerating diet. Discussed plan of care at bedside with patient. Pending lymph node biopsy Office of the law at bedside. Hospitalist Physical - Physical exam Narrative exam: GENERAL: well-developed -[place] male lying on bed appeared to be in no discomfort. HEENT: Normocephalic. Atraumatic. No conjunctival congestion or icterus. Patient has moist mucous membranes. NECK: Supple. Trachea midline. CHEST/LUNGS: Clear to auscultated bilaterally, breathing nonlabored. No wheezes crackles or rhonchi. HEART/CARDIOVASCULAR: Regular in rate and rhythm. S1 and S2 positive. ABDOMEN: Abdomen is soft, nontender. Patient has normal bowel sounds. SKIN: There is no rash. Warm and dry. NEURO: No focal motor deficit. Follows command. Patient has staggering speech MUSCULOSKELETAL: No joint effusion or tenderness. EXTRIMITY: No edema, no cyanosis or clubbing. PSYCH: Cooperative. - Constitutional Vitals: Temp Pulse Resp BP Pulse Ox 98.1 F 89 16 118/76 96 09/15/20 03:21 09/15/20 03:21 09/15/20 03:21 09/15/20 03:21 09/15/20 03:21 General appearance: Present: mild distress HEART Score - HEART Score Troponin: Troponin T < 0.010 ng/mL (0.00-0.029) 09/08/20 09:15 Results - Labs CBC & Chem 7: 09/13/20 16:39 09/15/20 09:12 Labs: Laboratory Last Values WBC 3.8 K/mm3 (4.5-11.0) L 09/08/20 09:15 RBC 4.63 M/mm3 (3.65-5.03) 09/08/20 09:15 Hgb 12.7 gm/dl (11.8-15.2) 09/08/20 09:15 Hct 37.6 % (35.5-45.6) 09/08/20 09:15 MCV 81 fl (84-94) L 09/08/20 09:15 MCH 28 pg (28-32) 09/08/20 09:15 MCHC 34 % (32-34) 09/08/20 09:15 RDW 14.2 % (13.2-15.2) 09/08/20 09:15 Plt Count 329 K/mm3 (140-440) 09/13/20 16:39 Lymph % (Auto) 11.3 % (13.4-35.0) L 09/08/20 09:15 [place] % (Auto) 12.6 % (0.0-7.3) H 09/08/20 09:15 Eos % (Auto) 0.5 % (0.0-4.3) 09/08/20 09:15 Baso % (Auto) 0.1 % (0.0-1.8) 09/08/20 09:15 Lymph # (Auto) 0.4 K/mm3 (1.2-5.4) L 09/08/20 09:15 [place] # (Auto) 0.5 K/mm3 (0.0-0.8) 09/08/20 09:15 Eos # (Auto) 0.0 K/mm3 (0.0-0.4) 09/08/20 09:15 Baso # (Auto) 0.0 K/mm3 (0.0-0.1) 09/08/20 09:15 Seg Neutrophils % 75.5 % (40.0-70.0) H 09/08/20 09:15 Seg Neutrophils # 2.9 K/mm3 (1.8-7.7) 09/08/20 09:15 PT 13.7 Sec. (12.2-14.9) 09/13/20 16:39 INR 1.06 (0.87-1.13) 09/13/20 16:39 APTT 35.7 Sec. (24.2-36.6) 09/13/20 16:39 Thrombin Time 17.9 Sec. (15.1-19.6) 09/08/20 09:15 Sodium 138 mmol/L (137-145) 09/12/20 13:04 Potassium 3.4 mmol/L (3.6-5.0) L 09/12/20 13:04 Chloride 105.4 mmol/L (98-107) 09/12/20 13:04 Carbon Dioxide 26 mmol/L (22-30) 09/12/20 13:04 Anion Gap 10 mmol/L 09/12/20 13:04 BUN 9 mg/dL (9-20) 09/12/20 13:04 Creatinine 0.8 mg/dL (0.8-1.3) 09/12/20 13:04 Estimated GFR > 60 ml/min 09/12/20 13:04 BUN/Creatinine Ratio 11 % 09/12/20 13:04 Glucose 104 mg/dL (75-100) H 09/12/20 13:04 POC Glucose 90 mg/dL (70-105) 09/10/20 21:23 Hemoglobin A1c 5.9 % (4-6) 09/11/20 18:47 Calcium 8.0 mg/dL (8.4-10.2) L 09/12/20 13:04 Iron 63 ug/dL (49-181) 09/14/20 04:52 TIBC 211 mcg/dL (250-450) L 09/14/20 04:52 Total Bilirubin < 0.20 mg/dL (0.1-1.2) 09/12/20 13:04 Direct Bilirubin < 0.2 mg/dL (0-0.2) 09/12/20 13:04 Indirect Bilirubin 0.0 mg/dL 09/12/20 13:04 AST 19 units/L (5-40) 09/12/20 13:04 ALT 18 units/L (7-56) 09/12/20 13:04 Alkaline Phosphatase 79 units/L (35-129) 09/12/20 13:04 Lactate Dehydrogenase 202 units/L (91-180) H 09/12/20 13:04 Troponin T < 0.010 ng/mL (0.00-0.029) 09/08/20 09:15 C-Reactive Protein 0.30 mg/dL (0.00-1.30) 09/13/20 05:19 Total Protein 7.3 g/dL (6.3-8.2) 09/12/20 13:04 Albumin 3.0 g/dL (3.9-5) L 09/12/20 13:04 Albumin/Globulin Ratio 0.7 % 09/12/20 13:04 Nasal Screen MRSA (PCR) Negative (Negative) 09/08/20 10:00 Syphilis IgG Antibody Nonreactive (NonReactive) 09/12/20 13:04 HIV-1 RNA PCR copies/ml [id number] Copies/mL H 09/13/20 05:19 HIV-1 RNA (PCR) log 6.64 Log cps/mL H 09/13/20 05:19 - Diagnostic Impressions Diagnostic Impressions: Echocardiogram 09/08/20 12:25 Transthoracic Echocardiogram Indication: Stroke BP: 133/91 HR: 65 Conclusions *Global left ventricular systolic function is normal. *The estimated ejection fraction is 55-60%. *The right ventricular global systolic function is normal. *No atrial septal defected is demonstrated by agitated saline contrast. *There is no evidence of aortic regurgitation. *There is trace of mitral regurgitation. *There is trace tricuspid regurgitation. *The right ventricular systolic pressure is calculated at 25 mmHg. *There is trace pulmonic regurgitation. Findings Left Ventricle: The left ventricular chamber size is normal. There is no left ventricular hypertrophy. Global left ventricular wall motion and contractility are within normal limits. Global left ventricular systolic function is normal. The estimated ejection fraction is 55-60%. There is an E to A reversal in the mitral valve flow pattern suggestive of diastolic dysfunction. Left Atrium: The left atrial chamber size is normal. Right Ventricle: The right ventricle is slightly dilated. The right ventricular global systolic function is normal. Right Atrium: The right atrial cavity size is normal. No atrial septal defected is demonstrated by agitated saline contrast. Aortic Valve: There is no evidence of aortic valve thickening. There is no evidence of aortic regurgitation. Mitral Valve: The mitral valve leaflets are mildly thickened. There is trace of mitral regurgitation. Tricuspid Valve: The tricuspid valve leaflets are normal. There is trace tricuspid regurgitation. The right ventricular systolic pressure is calculated at 25 mmHg. Pulmonic Valve: There is no evidence of pulmonic valve thickening. There is trace pulmonic regurgitation. Pericardium: There is no pericardial effusion. Aorta: The aorta appears normal. Venous: The inferior vena cava appears normal in size. There is a greater than 50% respiratory change in the inferior vena cava dimension. Measurements Chambers 2D Name Value Normal Range IVSd (2D) 0.93 cm (0.6 - 1.1) LVPWd (2D) 0.87 cm (0.6 - 1.1) LVIDd (2D) 4.43 cm (3.7 - 5.6) LVIDs (2D) 2.81 cm (2 - 3.8) LV FS (2D) 36.69 % - EF Teichholz (2D) 66.7 % - Ao root diameter (2D) 3.07 cm (2 - 3.7) Volumes/Mass Name Value Normal Range LA ESV SP 4CH (A/L) 42.3 ml - LA ESV SP 2CH (A/L) 60.27 ml - LA ESV BP (A/L) 54.4 ml - LA ESV BP (A/L) index 27.61 ml/m2 - LA ESV SP 4CH (MOD) 38.19 ml - LA ESV SP 2CH (MOD) 53.81 ml - LA ESV BP (MOD) 48.73 ml - LA ESV BP (MOD) index 24.73 ml/m2 - Diastolic/Systolic Function Name Value Normal Range MV E-wave Vmax 0.51 m/sec - MV deceleration time 255.2 msec - MV A-wave Vmax 0.56 m/sec - MV E:A ratio 0.91 ratio - Aortic Valve Name Value Normal Range AV Vmax 1.35 m/sec - AV VTI 27.47 cm - AV peak gradient 7.3 mmHg - AV mean gradient 4.36 mmHg - LVOT diameter 2.13 cm - LVOT Vmax 1.16 m/sec - LVOT VTI 21.62 cm - LVOT peak gradient 5.4 mmHg - LVOT mean gradient 2.49 mmHg - SV LVOT 77.11 ml - BEAU (continuity Vmax) 3.07 cm2 - BEAU (continuity VTI) 2.81 cm2 - Ascending Ao 2.83 cm - Tricuspid Valve Name Value Normal Range TR Vmax 2.36 m/sec - TR peak gradient 22 mmHg - RAP 3 mmHg - RVSP 25 mmHg - IVC diameter 1.85 cm (1.2 - 2.3) Pulmonic Valve/Qp:Qs Name Value Normal Range PV Vmax 0.98 m/sec - PV peak gradient 3.88 mmHg - NJ end-diastolic Vmax 1.11 m/sec - PV acceleration time 98.95 msec - Iqbal/IV: Voiding Method Toilet Active Medications - Current Medications Current Medications: Generic Name Dose Route Start Last Admin Trade Name Freq PRN Reason Stop Dose Admin Acetaminophen 650 mg 09/08/20 12:23 09/14/20 22:21 Acetaminophen 325 Mg Tab PO 650 mg Q4H PRN Administration Pain, Mild (1-3) Bisacodyl 10 mg 09/08/20 12:23 Bisacodyl 10 Mg Rect Supp NJ QDAY PRN Constipation Dexamethasone 4 mg 09/13/20 12:00 09/14/20 22:22 Dexamethasone 4 Mg/Ml Vial IV 4 mg Q6HR BUDDY Administration Levetiracetam 500 mg 09/11/20 22:00 09/14/20 22:21 Levetiracetam 500 Mg Tab PO 500 mg BID BUDDY Administration Magnesium Hydroxide 30 ml 09/08/20 12:23 Magnesium Hydroxide (Mom) Oral Liqd Udc PO Q4H PRN Constipation Metoclopramide HCl 10 mg 09/08/20 12:23 Metoclopramide 10 Mg Tab PO Q6H PRN Nausea And Vomiting Ondansetron HCl 4 mg 09/08/20 12:23 Ondansetron 4 Mg/2 Ml Inj IV Q8H PRN Nausea And Vomiting Promethazine HCl 25 mg 09/08/20 12:23 Promethazine 25 Mg Rect Supp NJ Q6H PRN Nausea And Vomiting Sodium Chloride 10 ml 09/08/20 12:23 Sodium Chloride 0.9% 10 Ml Flush Syringe IV PRN PRN LINE FLUSH Trimethoprim/Sulfamethoxazole 2 each 09/13/20 22:00 09/14/20 22:21 Sulfamethoxazole/Trimethoprim 800/160mg Ds Tab PO 2 each Q12HR BUDDY Administration Protocol Nutrition/Malnutrition Assess - Dietary Evaluation Nutrition/Malnutrition Findings: Nutrition Notes Start: 09/12/20 10:45 Freq: Status: Active Protocol: Document 09/12/20 10:45 CW (Rec: 09/12/20 10:58 CW [email or web address]) Nutrition Notes Need for Assessment generated from: MD Order Initial or Follow up Assessment Current Diagnosis Diabetes Other Pertinent Diagnosis HIV, Suspected CA Current Diet Mechanical Soft Labs/Tests Reviewed Pertinent Medications Reviewed Height 5 ft 11 in Weight 81.6 kg Usual Body Weight 85.4 kg [place] Body Weight (kg) 78.18 BMI 25.0 Intake Prior to Admission Good Weight change and time frame -4.7% x 4 months Weight Status Appropriate Subjective/Other Information MD Consult for malnutrition. Pt has dx of DM however will not change diet to Consistent CHO d/t BG on lower end of normal. Pt reports usual BW of 188 in Nov then body Weight of 164 in august. Weight seems to have regained since weight loss. Appetite is good per resident. No noticable signs of malnutrition in upper extremities or face. Food preferences noted. Pt denies N /V/D/C. Percent of energy/protein needs met: 92%/99% Burn Absent Trauma Absent GI Symptoms None Food Allergy Yes Current % PO Good (75-100%) Minimum of two criteria No physical signs of malnutrition #1 Nutrition Diagnosis No nutrition diagnosis at this time Is patient on ventilator? No Is Patient Ambulatory and/or Out of Bed Yes REE-([facility]-ambulatory/OOB) [ 2220.569 [id number]] Calculation Used for Recommendations [facility] Additional Notes protein needs: 82 - 98g (1 -1. 2 g/kgBW for hepatic disorder) fluid needs: 1 ml/kcal or per MD Nutrition Intervention Change Diet Order: Continue Mechanical soft diet Goal #1 Maintain PO intake that is at least 75% of kcal and protein needs Anticipated Discharge Needs: Mechanical Soft Consistent Carbohydrate Diet Revisit per MD consult or patient Sign Off request: Additional Comments S/O Good PO intake; weight trending towards normal
[2020-09-15] MEDS: dexAMETHasone 4 MG/ML VIAL IV SCH ×2 (09:58→18:33)
[2020-09-15 10:28] LABS: BUN/Creatinine Ratio 12; Blood Urea Nitrogen 12 mg/dL (9-20); Calcium 8.3 mg/dL (8.4-10.2); Hemolysis Index 10
[2020-09-15] MEDS: levETIRAcetam 500 MG TAB PO SCH ×2 (10:51→22:25)
[2020-09-15] MEDS: SULFAMETHOXAZOLE/TRIMETHOPRIM 800/160MG DS TAB PO SCH ×2 (10:51→22:25)
--- NOTE | 2020-09-15 14:12 | Progress Note ---
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 Agree with plans for neurosurgical evaluation as well as rule out of infectious potential causes. Lesions do not have the typical ring-enhancing appearance of toxoplasma, feel more likely to be lymphoma #HIV: Viral load 4.6 million, presumed very low CD4 count. Not on treatment. Reports recent infection, though that is questionable. #Diabetes: tight glycemic control for best outcomes. Recs: -Ordered CD4 count -Ordered toxoplasmosis antibodies, will take some time to come back. -Ordered AFB blood culture on the presumption CD4 count will be low. -Agree with need for abdominal lymph node biopsy -Started Bactrim 2x DS q12h as empiric toxo therapy in the meantime pending diagnosis (or normal CD4 count). If not other definitive diagnosis in a few weeks would re-image to see if improvement on MRI -Given he is unfunded, care coordination as an outpatient will be difficult. Believe he needs lymph node biopsy prior to discharge, as well as follow-up with [place] [facility]. He will also need oncology follow-up. Thank you for the consult, we will continue to follow. Dr. Arias covering this weekend, Dr. Tucker taking over Friday. Mathew Talavera MD [facility] ([facility]) O: [phone] F: [phone] Subjective Date of service: 09/15/20 Interval history: Afebrile, no acute change. Objective - Exam Narrative Exam: Physical Exam: Constitutional: Alert, cooperative. No acute distress Head, Ears, Nose: Normocephalic, atraumatic. External ears, nose normal Eyes: Conjunctivae/corneas clear. No icterus. No ptosis. Neck: Supple, no meningeal signs Oral: dentition fair, no thrush Cardiovascular: S1, S2 normal. Respiratory: Good air entry, clear to auscultation bilaterally GI: Soft, non-tender; bowel sounds normal. No peritoneal signs. Musculoskeletal: No pedal edema, no cyanosis. Skin: No rash or abscess Hem/Lymphatic: No palpable cervical or supraclavicular nodes. No lymphangitis Psych: Mood ok. Affect normal Neurological: Right-sided motor weakness - Constitutional Vitals: Vital Signs Temp Pulse Resp BP Pulse Ox 98.5 F 67 18 103/71 96 09/15/20 09:07 09/15/20 10:00 09/15/20 09:07 09/15/20 09:07 09/15/20 09:07 Temperature -Last 24 Hours Temperature 98.5 F Temperature 98.1 F Temperature 98.1 F Temperature 97.9 F Temperature 98.6 F - Labs CBC & Chem 7: 09/13/20 16:39 09/15/20 09:12 Labs: Abnormal lab results 09/13/20 09/15/20 Range/Units 05:19 09:12 Glucose 154 H (75-100) mg/dL Calcium 8.3 L (8.4-10.2) mg/dL HIV-1 RNA PCR copies/ml [id number] H Copies/mL HIV-1 RNA (PCR) log 6.64 H Log cps/mL
[2020-09-15 15:47] LABS: CD4/CD8 Ratio 0.23 (0.86-5.00)
[2020-09-16] MEDS: dexAMETHasone 4 MG/ML VIAL IV SCH ×5 (06:10→17:57)
[2020-09-16] MEDS: ACETAMINOPHEN 325 MG TAB PO PRN (07:54)
[2020-09-16] MEDS: SULFAMETHOXAZOLE/TRIMETHOPRIM 800/160MG DS TAB PO SCH ×2 (09:29→21:15)
[2020-09-16] MEDS: levETIRAcetam 500 MG TAB PO SCH ×2 (09:29→21:14)
--- NOTE | 2020-09-16 15:05 | Progress Note ---
Assessment and Plan Assessment and plan: 49 YO Male with DM presents to ED for evaluation. Patient reports "I feel weak on my right side and I could not talk". Patient states he was in his usual state of health at bedtime around 2200 hrs. Patient states that he awoke from sleep at approximately 0600 hrs. and experienced a headache as well as drooling, slurred speech, and right arm and leg weakness. EMS was notified and upon arrival the patient was found to be in distress with a neurologic deficit. A code stroke was called and the patient was subsequently transported to [facility] for further care and evaluation of the aforementioned symptoms. The patient was seen and evaluated in the emergency department. All lab and imaging studies rev iewed. Patient found to have clinical symptoms consistent with CVA. Patient underwent CT scan of the head which revealed focal ischemia. -- CVA (cerebral vascular accident), ruled out with negative brain MRI --Cerebral metastasis vs toxoplasmosis ?? MRI brain showed 2 regions of vasogenic edema in the left frontal lobe and right parietal lobe. 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 CT thorax showed no focus for malignancy CT abdomen pelvis showed diffuse lymphadenopathy -suggestive of possible lymphoma vs lymhadenopathy related to HIV, consulted hematology and ID Neurology recommended IV Decadron -will hold for now till we r/o infectious etiology --HIV, when asked if he has high risk for HIV he then stated that he was told that he is positive for HIV about 4 days ago prior to this admission will order for repeat test, CD4 count, consult ID --History of weight loss, consult dietary Likely related to his underlying medical condition -DM type 2, BG under control, SSI as needed -- DVT prophylaxis SCDs bilateral lower extremities while in bed, patient is ambulatory. Daily course: 09/09: Pending MRI. follow MRI and neuro recommendation 09/10: MRI brain without contrast result noted, possible metastatic cervical disease - order for MRI brain with contrast, follow clinically 09/11: MRI brain with contrast showed possible metastatic disease. CT abdomen pelvis showed diffuse lymphadenopathy. Hematology and oncology consulted. Neurology recommended IV Decadron - will hold for now till can r/o toxoplasmosis. Also consulted neurosurgeon Dr. Roman and ID for further recommendation. We will also start on Keppra prophylactically to prevent seizure. 09/12: Noted ID recommendation. Stable lesion most likely lymphoma per ID. Wait for neurosurgery recommendation. CD4 count, serology for toxoplasma, RPR still pending. 09/13: Pending LP and toxoplasmosis serology. Pending CD4 count. Follow ID and neurology recommendation. 09/14: Plan for LP today but could not be performed by the radiologist as it was a difficult tap. Pending serology for toxoplasmosis, CD4 count. Patient started on Bactrim pending CD4 count.. Discussed with ID and recommending lymph node biopsy. Consulted IR for abdominal lymph node biopsy to get to confirm diagnosis. We will continue to follow 09/15: Patient pending lymph node biopsy. Coordination of care of patient was concerning to ID and I agree with such impression. Will discuss with case management to assist 09/16/20 patient complained of headache. Not feeling good. Waiting for lymph node biopsy. Absolute CD4 count 32 absolute CD3 count 161 absolute CD8 count 138. Waiting for toxoplasmosis antibodies and AB blood culture. Continue Bactrim double strength p.o. twice a day. Continue current treatment. Infectious disease follow-up. Case management evaluation to help the patient with treatment. Patient need to follow-up with [facility] as outpatient. History Interval history: Patient seen and examined. Medical records and medication list reviewed. No acute event overnight noted by the RN. patient complained of headache. Feeling so-so. No chest pain Waiting for lymph node biopsy Office of the law at bedside. Hospitalist Physical - Constitutional Vitals: Temp Pulse Resp BP Pulse Ox 98.8 F 65 18 114/63 98 09/16/20 08:15 09/16/20 11:05 09/16/20 05:21 09/16/20 08:15 09/16/20 08:15 General appearance: Present: no acute distress, mild distress - EENT Eyes: Present: PERRL ENT: hearing intact - Neck Neck: Present: supple - Respiratory Respiratory effort: normal Respiratory: bilateral: diminished - Cardiovascular Rhythm: regular Heart Sounds: Present: S1 & S2 - Extremities Extremities: no ischemia, pulses intact, No edema Peripheral Pulses: within normal limits - Abdominal General gastrointestinal: soft, non-tender, normal bowel sounds - Integumentary Integumentary: Present: clear, warm, dry - Psychiatric Psychiatric: appropriate mood/affect, intact judgment & insight - Neurologic Neurologic: CNII-XII intact HEART Score - HEART Score Troponin: Troponin T < 0.010 ng/mL (0.00-0.029) 09/08/20 09:15 Results - Labs CBC & Chem 7: 09/13/20 16:39 09/15/20 09:12 Labs: Laboratory Last Values WBC 3.8 K/mm3 (4.5-11.0) L 09/08/20 09:15 RBC 4.63 M/mm3 (3.65-5.03) 09/08/20 09:15 Hgb 12.7 gm/dl (11.8-15.2) 09/08/20 09:15 Hct 37.6 % (35.5-45.6) 09/08/20 09:15 MCV 81 fl (84-94) L 09/08/20 09:15 MCH 28 pg (28-32) 09/08/20 09:15 MCHC 34 % (32-34) 09/08/20 09:15 RDW 14.2 % (13.2-15.2) 09/08/20 09:15 Plt Count 329 K/mm3 (140-440) 09/13/20 16:39 Lymph % (Auto) 11.3 % (13.4-35.0) L 09/08/20 09:15 Pepin % (Auto) 12.6 % (0.0-7.3) H 09/08/20 09:15 Eos % (Auto) 0.5 % (0.0-4.3) 09/08/20 09:15 Baso % (Auto) 0.1 % (0.0-1.8) 09/08/20 09:15 Lymph # (Auto) 0.4 K/mm3 (1.2-5.4) L 09/08/20 09:15 Pepin # (Auto) 0.5 K/mm3 (0.0-0.8) 09/08/20 09:15 Eos # (Auto) 0.0 K/mm3 (0.0-0.4) 09/08/20 09:15 Baso # (Auto) 0.0 K/mm3 (0.0-0.1) 09/08/20 09:15 Seg Neutrophils % 75.5 % (40.0-70.0) H 09/08/20 09:15 Seg Neutrophils # 2.9 K/mm3 (1.8-7.7) 09/08/20 09:15 Abs Lymphs (Manual) 248 cells/uL (850-3900) L 09/11/20 18:47 PT 13.7 Sec. (12.2-14.9) 09/13/20 16:39 INR 1.06 (0.87-1.13) 09/13/20 16:39 APTT 35.7 Sec. (24.2-36.6) 09/13/20 16:39 Thrombin Time 17.9 Sec. (15.1-19.6) 09/08/20 09:15 Sodium 141 mmol/L (137-145) 09/15/20 09:12 Potassium 4.0 mmol/L (3.6-5.0) 09/15/20 09:12 Chloride 106.9 mmol/L (98-107) 09/15/20 09:12 Carbon Dioxide 25 mmol/L (22-30) 09/15/20 09:12 Anion Gap 13 mmol/L 09/15/20 09:12 BUN 12 mg/dL (9-20) 09/15/20 09:12 Creatinine 1.0 mg/dL (0.8-1.3) 09/15/20 09:12 Estimated GFR > 60 ml/min 09/15/20 09:12 BUN/Creatinine Ratio 12 % 09/15/20 09:12 Glucose 154 mg/dL (75-100) H 09/15/20 09:12 POC Glucose 90 mg/dL (70-105) 09/10/20 21:23 Hemoglobin A1c 5.9 % (4-6) 09/11/20 18:47 Calcium 8.3 mg/dL (8.4-10.2) L 09/15/20 09:12 Iron 63 ug/dL (49-181) 09/14/20 04:52 TIBC 211 mcg/dL (250-450) L 09/14/20 04:52 Total Bilirubin < 0.20 mg/dL (0.1-1.2) 09/12/20 13:04 Direct Bilirubin < 0.2 mg/dL (0-0.2) 09/12/20 13:04 Indirect Bilirubin 0.0 mg/dL 09/12/20 13:04 AST 19 units/L (5-40) 09/12/20 13:04 ALT 18 units/L (7-56) 09/12/20 13:04 Alkaline Phosphatase 79 units/L (35-129) 09/12/20 13:04 Lactate Dehydrogenase 202 units/L (91-180) H 09/12/20 13:04 Troponin T < 0.010 ng/mL (0.00-0.029) 09/08/20 09:15 C-Reactive Protein 0.30 mg/dL (0.00-1.30) 09/13/20 05:19 Total Protein 7.3 g/dL (6.3-8.2) 09/12/20 13:04 Albumin 3.0 g/dL (3.9-5) L 09/12/20 13:04 Albumin/Globulin Ratio 0.7 % 09/12/20 13:04 Nasal Screen MRSA (PCR) Negative (Negative) 09/08/20 10:00 Lymph Enumerat CD4/CD8 0.23 (0.86-5.00) L 09/11/20 18:47 % CD3 Cells 65 % (57-85) 09/11/20 18:47 Absolute CD3 Count 161 cells/uL (840-3060) L 09/11/20 18:47 % CD4 Cells 11 % (30-61) L 09/11/20 18:47 Absolute CD4 Count 32 cells/uL (490-1740) L 09/11/20 18:47 % CD8 Cells 49 % (12-42) H 09/11/20 18:47 Absolute CD8 Count 138 cells/uL (180-1170) L 09/11/20 18:47 % CD19 Cells 3 % (6-29) L 09/11/20 18:47 Absolute CD19 Count 7 cells/uL (110-660) L 09/11/20 18:47 Syphilis IgG Antibody Nonreactive (NonReactive) 09/12/20 13:04 HIV-1 RNA PCR copies/ml [id number] Copies/mL H 09/13/20 05:19 HIV-1 RNA (PCR) log 6.64 Log cps/mL H 09/13/20 05:19 Toxoplasma IgG Ab 196.00 IU/mL (<7.20) H 09/11/20 18:47 Toxoplasma IgM Ab <8.00 AU/mL (<8.00) 09/11/20 18:47 - Diagnostic Impressions Diagnostic Impressions: Echocardiogram 09/08/20 12:25 Transthoracic Echocardiogram Indication: Stroke BP: 133/91 HR: 65 Conclusions *Global left ventricular systolic function is normal. *The estimated ejection fraction is 55-60%. *The right ventricular global systolic function is normal. *No atrial septal defected is demonstrated by agitated saline contrast. *There is no evidence of aortic regurgitation. *There is trace of mitral regurgitation. *There is trace tricuspid regurgitation. *The right ventricular systolic pressure is calculated at 25 mmHg. *There is trace pulmonic regurgitation. Findings Left Ventricle: The left ventricular chamber size is normal. There is no left ventricular hypertrophy. Global left ventricular wall motion and contractility are within normal limits. Global left ventricular systolic function is normal. The estimated ejection fraction is 55-60%. There is an E to A reversal in the mitral valve flow pattern suggestive of diastolic dysfunction. Left Atrium: The left atrial chamber size is normal. Right Ventricle: The right ventricle is slightly dilated. The right ventricular global systolic function is normal. Right Atrium: The right atrial cavity size is normal. No atrial septal defected is demonstrated by agitated saline contrast. Aortic Valve: There is no evidence of aortic valve thickening. There is no evidence of aortic regurgitation. Mitral Valve: The mitral valve leaflets are mildly thickened. There is trace of mitral regurgitation. Tricuspid Valve: The tricuspid valve leaflets are normal. There is trace tricuspid regurgitation. The right ventricular systolic pressure is calculated at 25 mmHg. Pulmonic Valve: There is no evidence of pulmonic valve thickening. There is trace pulmonic regurgitation. Pericardium: There is no pericardial effusion. Aorta: The aorta appears normal. Venous: The inferior vena cava appears normal in size. There is a greater than 50% respiratory change in the inferior vena cava dimension. Measurements Chambers 2D Name Value Normal Range IVSd (2D) 0.93 cm (0.6 - 1.1) LVPWd (2D) 0.87 cm (0.6 - 1.1) LVIDd (2D) 4.43 cm (3.7 - 5.6) LVIDs (2D) 2.81 cm (2 - 3.8) LV FS (2D) 36.69 % - EF Teichholz (2D) 66.7 % - Ao root diameter (2D) 3.07 cm (2 - 3.7) Volumes/Mass Name Value Normal Range LA ESV SP 4CH (A/L) 42.3 ml - LA ESV SP 2CH (A/L) 60.27 ml - LA ESV BP (A/L) 54.4 ml - LA ESV BP (A/L) index 27.61 ml/m2 - LA ESV SP 4CH (MOD) 38.19 ml - LA ESV SP 2CH (MOD) 53.81 ml - LA ESV BP (MOD) 48.73 ml - LA ESV BP (MOD) index 24.73 ml/m2 - Diastolic/Systolic Function Name Value Normal Range MV E-wave Vmax 0.51 m/sec - MV deceleration time 255.2 msec - MV A-wave Vmax 0.56 m/sec - MV E:A ratio 0.91 ratio - Aortic Valve Name Value Normal Range AV Vmax 1.35 m/sec - AV VTI 27.47 cm - AV peak gradient 7.3 mmHg - AV mean gradient 4.36 mmHg - LVOT diameter 2.13 cm - LVOT Vmax 1.16 m/sec - LVOT VTI 21.62 cm - LVOT peak gradient 5.4 mmHg - LVOT mean gradient 2.49 mmHg - SV LVOT 77.11 ml - BEAU (continuity Vmax) 3.07 cm2 - BEAU (continuity VTI) 2.81 cm2 - Ascending Ao 2.83 cm - Tricuspid Valve Name Value Normal Range TR Vmax 2.36 m/sec - TR peak gradient 22 mmHg - RAP 3 mmHg - RVSP 25 mmHg - IVC diameter 1.85 cm (1.2 - 2.3) Pulmonic Valve/Qp:Qs Name Value Normal Range PV Vmax 0.98 m/sec - PV peak gradient 3.88 mmHg - MI end-diastolic Vmax 1.11 m/sec - PV acceleration time 98.95 msec - Iqbal/IV: Voiding Method Urinal Active Medications - Current Medications Current Medications: Generic Name Dose Route Start Last Admin Trade Name Freq PRN Reason Stop Dose Admin Acetaminophen 650 mg 09/08/20 12:23 09/16/20 07:54 Acetaminophen 325 Mg Tab PO 650 mg Q4H PRN Administration Pain, Mild (1-3) Bisacodyl 10 mg 09/08/20 12:23 Bisacodyl 10 Mg Rect Supp MI QDAY PRN Constipation Dexamethasone 4 mg 09/13/20 12:00 09/16/20 11:22 Dexamethasone 4 Mg/Ml Vial IV 4 mg Q6HR BUDDY Administration Levetiracetam 500 mg 09/11/20 22:00 09/16/20 09:29 Levetiracetam 500 Mg Tab PO 500 mg BID BUDDY Administration Magnesium Hydroxide 30 ml 09/08/20 12:23 Magnesium Hydroxide (Mom) Oral Liqd Udc PO Q4H PRN Constipation Metoclopramide HCl 10 mg 09/08/20 12:23 Metoclopramide 10 Mg Tab PO Q6H PRN Nausea And Vomiting Ondansetron HCl 4 mg 09/08/20 12:23 Ondansetron 4 Mg/2 Ml Inj IV Q8H PRN Nausea And Vomiting Promethazine HCl 25 mg 09/08/20 12:23 Promethazine 25 Mg Rect Supp MI Q6H PRN Nausea And Vomiting Sodium Chloride 10 ml 09/08/20 12:23 Sodium Chloride 0.9% 10 Ml Flush Syringe IV PRN PRN LINE FLUSH Trimethoprim/Sulfamethoxazole 2 each 09/13/20 22:00 09/16/20 09:29 Sulfamethoxazole/Trimethoprim 800/160mg Ds Tab PO 2 each Q12HR BUDDY Administration Protocol Nutrition/Malnutrition Assess - Dietary Evaluation Nutrition/Malnutrition Findings: Nutrition Notes Start: 09/12/20 10:45 Freq: Status: Active Protocol: Document 09/15/20 10:36 (Rec: 09/15/20 10:37 [email or web address]) Nutrition Notes Need for Assessment generated from: LOS Initial or Follow up Brief Note Current Diagnosis Diabetes Other Pertinent Diagnosis HIV, Suspected CA Current Diet Mechanical Soft Subjective/Other Information Screen for LOS. Per chart, pt consuming 100% of meals. Nutrition Intervention Revisit per MD consult or patient Sign Off request: - Malnutrition Assessment Minimum of two criteria: No - Attestation Statement I have reviewed and agreed w/ Malnutrition eval & tx plan: Yes
[2020-09-17] MEDS: dexAMETHasone 4 MG/ML VIAL IV SCH ×4 (00:12→17:51)
[2020-09-17 06:29] LABS: Basophils % (Auto) 0.3 % (0.0-1.8); Hematocrit 36.4 % (35.5-45.6); Hemoglobin 12.1 gm/dl (11.8-15.2); Lymphocytes # (Auto) 0.3 K/mm3 (1.2-5.4); Lymphocytes % (Auto) 3.1 % (13.4-35.0); Mean Corpuscular HGB Conc 33 % (32-34); Mean Corpuscular Volume 82 fl (84-94); Monocytes # (Auto) 0.6 K/mm3 (0.0-0.8); Monocytes % (Auto) 7.1 % (0.0-7.3); Platelet Count 367 K/mm3 (140-440); Red Blood Count 4.46 M/mm3 (3.65-5.03); Red Cell Distribution Width 14.3 % (13.2-15.2)
[2020-09-17] MEDS: SULFAMETHOXAZOLE/TRIMETHOPRIM 800/160MG DS TAB PO SCH ×2 (09:29→23:09)
[2020-09-17] MEDS: levETIRAcetam 500 MG TAB PO SCH ×2 (09:29→23:09)
--- NOTE | 2020-09-17 10:41 | Progress Note ---
Assessment and Plan Assessment and plan: 49 YO Male with DM presents to ED for evaluation. Patient reports "I feel weak on my right side and I could not talk". Patient states he was in his usual state of health at bedtime around 2200 hrs. Patient states that he awoke from sleep at approximately 0600 hrs. and experienced a headache as well as drooling, slurred speech, and right arm and leg weakness. EMS was notified and upon arrival the patient was found to be in distress with a neurologic deficit. A code stroke was called and the patient was subsequently transported to [facility] for further care and evaluation of the aforementioned symptoms. The patient was seen and evaluated in the emergency department. All lab and imaging studies rev iewed. Patient found to have clinical symptoms consistent with CVA. Patient underwent CT scan of the head which revealed focal ischemia. -- CVA (cerebral vascular accident), ruled out with negative brain MRI --Cerebral metastasis vs toxoplasmosis ?? MRI brain showed 2 regions of vasogenic edema in the left frontal lobe and right parietal lobe. 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 CT thorax showed no focus for malignancy CT abdomen pelvis showed diffuse lymphadenopathy -suggestive of possible lymphoma vs lymhadenopathy related to HIV, consulted hematology and ID Neurology recommended IV Decadron -will hold for now till we r/o infectious etiology --HIV, when asked if he has high risk for HIV he then stated that he was told that he is positive for HIV about 4 days ago prior to this admission will order for repeat test, CD4 count, consult ID --History of weight loss, consult dietary Likely related to his underlying medical condition -DM type 2, BG under control, SSI as needed -- DVT prophylaxis SCDs bilateral lower extremities while in bed, patient is ambulatory. Daily course: 09/09: Pending MRI. follow MRI and neuro recommendation 09/10: MRI brain without contrast result noted, possible metastatic cervical disease - order for MRI brain with contrast, follow clinically 09/11: MRI brain with contrast showed possible metastatic disease. CT abdomen pelvis showed diffuse lymphadenopathy. Hematology and oncology consulted. Neurology recommended IV Decadron - will hold for now till can r/o toxoplasmosis. Also consulted neurosurgeon Dr. Roman and ID for further recommendation. We will also start on Keppra prophylactically to prevent seizure. 09/12: Noted ID recommendation. Stable lesion most likely lymphoma per ID. Wait for neurosurgery recommendation. CD4 count, serology for toxoplasma, RPR still pending. 09/13: Pending LP and toxoplasmosis serology. Pending CD4 count. Follow ID and neurology recommendation. 09/14: Plan for LP today but could not be performed by the radiologist as it was a difficult tap. Pending serology for toxoplasmosis, CD4 count. Patient started on Bactrim pending CD4 count.. Discussed with ID and recommending lymph node biopsy. Consulted IR for abdominal lymph node biopsy to get to confirm diagnosis. We will continue to follow 09/15: Patient pending lymph node biopsy. Coordination of care of patient was concerning to ID and I agree with such impression. Will discuss with case management to assist 09/16/20 patient complained of headache. Not feeling good. Waiting for lymph node biopsy. Absolute CD4 count 32 absolute CD3 count 161 absolute CD8 count 138. Waiting for toxoplasmosis antibodies and AB blood culture. Continue Bactrim double strength p.o. twice a day. Continue current treatment. Infectious disease follow-up. Case management evaluation to help the patient with treatment. Patient need to follow-up with [facility] as outpatient. 09/17/20 patient patient feels better except complaining of headache. Possible lymph node biopsy by interventional radiology in the morning. Absolute CD4 count 32 absolute CD3 count 161 absolute CD8 count 138. Waiting for toxoplasmosis antibodies and AB blood culture. Continue Bactrim double strength p.o. twice a day. Continue current treatment. Infectious disease follow-up. Case management evaluation to help the patient with treatment. Patient need to follow-up with [facility] as outpatient. History Interval history: 09/17/20 Patient seen and examined. Medical records and medication list reviewed. No acute event overnight noted by the RN. patient complained of headache. No other complain. Feels better. Possible lymph node biopsy by interventional radiology in the morning Office of the law at bedside. Hospitalist Physical - Constitutional Vitals: Temp Pulse Resp BP Pulse Ox 98.1 F 89 18 120/70 97 09/17/20 08:28 09/17/20 08:28 09/17/20 04:45 09/17/20 08:28 09/17/20 08:28 General appearance: Present: no acute distress, mild distress - EENT Eyes: Present: PERRL, EOM intact ENT: hearing intact - Neck Neck: Present: supple, normal ROM - Respiratory Respiratory effort: normal Respiratory: bilateral: diminished - Cardiovascular Rhythm: regular Heart Sounds: Present: S1 & S2 - Extremities Extremities: no ischemia, pulses intact, No edema Peripheral Pulses: within normal limits - Abdominal General gastrointestinal: soft, non-tender, non-distended, normal bowel sounds - Integumentary Integumentary: Present: clear, warm, dry - Psychiatric Psychiatric: appropriate mood/affect, intact judgment & insight, cooperative - Neurologic Neurologic: CNII-XII intact, moves all extremities HEART Score - HEART Score Troponin: Troponin T < 0.010 ng/mL (0.00-0.029) 09/08/20 09:15 Results - Labs CBC & Chem 7: 09/17/20 06:09 09/15/20 09:12 Labs: Laboratory Last Values WBC 8.2 K/mm3 (4.5-11.0) 09/17/20 06:09 RBC 4.46 M/mm3 (3.65-5.03) 09/17/20 06:09 Hgb 12.1 gm/dl (11.8-15.2) 09/17/20 06:09 Hct 36.4 % (35.5-45.6) 09/17/20 06:09 MCV 82 fl (84-94) L 09/17/20 06:09 MCH 27 pg (28-32) L 09/17/20 06:09 MCHC 33 % (32-34) 09/17/20 06:09 RDW 14.3 % (13.2-15.2) 09/17/20 06:09 Plt Count 367 K/mm3 (140-440) 09/17/20 06:09 Lymph % (Auto) 3.1 % (13.4-35.0) L 09/17/20 06:09 [place] % (Auto) 7.1 % (0.0-7.3) 09/17/20 06:09 Eos % (Auto) 0.0 % (0.0-4.3) 09/17/20 06:09 Baso % (Auto) 0.3 % (0.0-1.8) 09/17/20 06:09 Lymph # (Auto) 0.3 K/mm3 (1.2-5.4) L 09/17/20 06:09 [place] # (Auto) 0.6 K/mm3 (0.0-0.8) 09/17/20 06:09 Eos # (Auto) 0.0 K/mm3 (0.0-0.4) 09/17/20 06:09 Baso # (Auto) 0.0 K/mm3 (0.0-0.1) 09/17/20 06:09 Seg Neutrophils % 89.5 % (40.0-70.0) H 09/17/20 06:09 Seg Neutrophils # 7.3 K/mm3 (1.8-7.7) 09/17/20 06:09 Abs Lymphs (Manual) 248 cells/uL (850-3900) L 09/11/20 18:47 PT 13.7 Sec. (12.2-14.9) 09/13/20 16:39 INR 1.06 (0.87-1.13) 09/13/20 16:39 APTT 35.7 Sec. (24.2-36.6) 09/13/20 16:39 Thrombin Time 17.9 Sec. (15.1-19.6) 09/08/20 09:15 Sodium 141 mmol/L (137-145) 09/15/20 09:12 Potassium 4.0 mmol/L (3.6-5.0) 09/15/20 09:12 Chloride 106.9 mmol/L (98-107) 09/15/20 09:12 Carbon Dioxide 25 mmol/L (22-30) 09/15/20 09:12 Anion Gap 13 mmol/L 09/15/20 09:12 BUN 12 mg/dL (9-20) 09/15/20 09:12 Creatinine 1.0 mg/dL (0.8-1.3) 09/15/20 09:12 Estimated GFR > 60 ml/min 09/15/20 09:12 BUN/Creatinine Ratio 12 % 09/15/20 09:12 Glucose 154 mg/dL (75-100) H 09/15/20 09:12 POC Glucose 90 mg/dL (70-105) 09/10/20 21:23 Hemoglobin A1c 5.9 % (4-6) 09/11/20 18:47 Calcium 8.3 mg/dL (8.4-10.2) L 09/15/20 09:12 Iron 63 ug/dL (49-181) 09/14/20 04:52 TIBC 211 mcg/dL (250-450) L 09/14/20 04:52 Total Bilirubin < 0.20 mg/dL (0.1-1.2) 09/12/20 13:04 Direct Bilirubin < 0.2 mg/dL (0-0.2) 09/12/20 13:04 Indirect Bilirubin 0.0 mg/dL 09/12/20 13:04 AST 19 units/L (5-40) 09/12/20 13:04 ALT 18 units/L (7-56) 09/12/20 13:04 Alkaline Phosphatase 79 units/L (35-129) 09/12/20 13:04 Lactate Dehydrogenase 202 units/L (91-180) H 09/12/20 13:04 Troponin T < 0.010 ng/mL (0.00-0.029) 09/08/20 09:15 C-Reactive Protein 0.30 mg/dL (0.00-1.30) 09/13/20 05:19 Total Protein 7.3 g/dL (6.3-8.2) 09/12/20 13:04 Albumin 3.0 g/dL (3.9-5) L 09/12/20 13:04 Albumin/Globulin Ratio 0.7 % 09/12/20 13:04 Nasal Screen MRSA (PCR) Negative (Negative) 09/08/20 10:00 Lymph Enumerat CD4/CD8 0.23 (0.86-5.00) L 09/11/20 18:47 % CD3 Cells 65 % (57-85) 09/11/20 18:47 Absolute CD3 Count 161 cells/uL (840-3060) L 09/11/20 18:47 % CD4 Cells 11 % (30-61) L 09/11/20 18:47 Absolute CD4 Count 32 cells/uL (490-1740) L 09/11/20 18:47 % CD8 Cells 49 % (12-42) H 09/11/20 18:47 Absolute CD8 Count 138 cells/uL (180-1170) L 09/11/20 18:47 % CD19 Cells 3 % (6-29) L 09/11/20 18:47 Absolute CD19 Count 7 cells/uL (110-660) L 09/11/20 18:47 Syphilis IgG Antibody Nonreactive (NonReactive) 09/12/20 13:04 HIV-1 RNA PCR copies/ml [id number] Copies/mL H 09/13/20 05:19 HIV-1 RNA (PCR) log 6.64 Log cps/mL H 09/13/20 05:19 Toxoplasma IgG Ab 196.00 IU/mL (<7.20) H 09/11/20 18:47 Toxoplasma IgM Ab <8.00 AU/mL (<8.00) 09/11/20 18:47 - Diagnostic Impressions Diagnostic Impressions: Echocardiogram 09/08/20 12:25 Transthoracic Echocardiogram Indication: Stroke BP: 133/91 HR: 65 Conclusions *Global left ventricular systolic function is normal. *The estimated ejection fraction is 55-60%. *The right ventricular global systolic function is normal. *No atrial septal defected is demonstrated by agitated saline contrast. *There is no evidence of aortic regurgitation. *There is trace of mitral regurgitation. *There is trace tricuspid regurgitation. *The right ventricular systolic pressure is calculated at 25 mmHg. *There is trace pulmonic regurgitation. Findings Left Ventricle: The left ventricular chamber size is normal. There is no left ventricular hypertrophy. Global left ventricular wall motion and contractility are within normal limits. Global left ventricular systolic function is normal. The estimated ejection fraction is 55-60%. There is an E to A reversal in the mitral valve flow pattern suggestive of diastolic dysfunction. Left Atrium: The left atrial chamber size is normal. Right Ventricle: The right ventricle is slightly dilated. The right ventricular global systolic function is normal. Right Atrium: The right atrial cavity size is normal. No atrial septal defected is demonstrated by agitated saline contrast. Aortic Valve: There is no evidence of aortic valve thickening. There is no evidence of aortic regurgitation. Mitral Valve: The mitral valve leaflets are mildly thickened. There is trace of mitral regurgitation. Tricuspid Valve: The tricuspid valve leaflets are normal. There is trace tricuspid regurgitation. The right ventricular systolic pressure is calculated at 25 mmHg. Pulmonic Valve: There is no evidence of pulmonic valve thickening. There is trace pulmonic regurgitation. Pericardium: There is no pericardial effusion. Aorta: The aorta appears normal. Venous: The inferior vena cava appears normal in size. There is a greater than 50% respiratory change in the inferior vena cava dimension. Measurements Chambers 2D Name Value Normal Range IVSd (2D) 0.93 cm (0.6 - 1.1) LVPWd (2D) 0.87 cm (0.6 - 1.1) LVIDd (2D) 4.43 cm (3.7 - 5.6) LVIDs (2D) 2.81 cm (2 - 3.8) LV FS (2D) 36.69 % - EF Teichholz (2D) 66.7 % - Ao root diameter (2D) 3.07 cm (2 - 3.7) Volumes/Mass Name Value Normal Range LA ESV SP 4CH (A/L) 42.3 ml - LA ESV SP 2CH (A/L) 60.27 ml - LA ESV BP (A/L) 54.4 ml - LA ESV BP (A/L) index 27.61 ml/m2 - LA ESV SP 4CH (MOD) 38.19 ml - LA ESV SP 2CH (MOD) 53.81 ml - LA ESV BP (MOD) 48.73 ml - LA ESV BP (MOD) index 24.73 ml/m2 - Diastolic/Systolic Function Name Value Normal Range MV E-wave Vmax 0.51 m/sec - MV deceleration time 255.2 msec - MV A-wave Vmax 0.56 m/sec - MV E:A ratio 0.91 ratio - Aortic Valve Name Value Normal Range AV Vmax 1.35 m/sec - AV VTI 27.47 cm - AV peak gradient 7.3 mmHg - AV mean gradient 4.36 mmHg - LVOT diameter 2.13 cm - LVOT Vmax 1.16 m/sec - LVOT VTI 21.62 cm - LVOT peak gradient 5.4 mmHg - LVOT mean gradient 2.49 mmHg - SV LVOT 77.11 ml - BEAU (continuity Vmax) 3.07 cm2 - BEAU (continuity VTI) 2.81 cm2 - Ascending Ao 2.83 cm - Tricuspid Valve Name Value Normal Range TR Vmax 2.36 m/sec - TR peak gradient 22 mmHg - RAP 3 mmHg - RVSP 25 mmHg - IVC diameter 1.85 cm (1.2 - 2.3) Pulmonic Valve/Qp:Qs Name Value Normal Range PV Vmax 0.98 m/sec - PV peak gradient 3.88 mmHg - SC end-diastolic Vmax 1.11 m/sec - PV acceleration time 98.95 msec - Iqbal/IV: Voiding Method Urinal Active Medications - Current Medications Current Medications: Generic Name Dose Route Start Last Admin Trade Name Freq PRN Reason Stop Dose Admin Acetaminophen 650 mg 09/08/20 12:23 09/16/20 07:54 Acetaminophen 325 Mg Tab PO 650 mg Q4H PRN Administration Pain, Mild (1-3) Bisacodyl 10 mg 09/08/20 12:23 Bisacodyl 10 Mg Rect Supp SC QDAY PRN Constipation Dexamethasone 4 mg 09/13/20 12:00 09/17/20 05:23 Dexamethasone 4 Mg/Ml Vial IV 4 mg Q6HR BUDDY Administration Levetiracetam 500 mg 09/11/20 22:00 09/17/20 09:29 Levetiracetam 500 Mg Tab PO 500 mg BID BUDDY Administration Magnesium Hydroxide 30 ml 09/08/20 12:23 Magnesium Hydroxide (Mom) Oral Liqd Udc PO Q4H PRN Constipation Metoclopramide HCl 10 mg 09/08/20 12:23 Metoclopramide 10 Mg Tab PO Q6H PRN Nausea And Vomiting Ondansetron HCl 4 mg 09/08/20 12:23 Ondansetron 4 Mg/2 Ml Inj IV Q8H PRN Nausea And Vomiting Promethazine HCl 25 mg 09/08/20 12:23 Promethazine 25 Mg Rect Supp SC Q6H PRN Nausea And Vomiting Sodium Chloride 10 ml 09/08/20 12:23 Sodium Chloride 0.9% 10 Ml Flush Syringe IV PRN PRN LINE FLUSH Trimethoprim/Sulfamethoxazole 2 each 09/13/20 22:00 09/17/20 09:29 Sulfamethoxazole/Trimethoprim 800/160mg Ds Tab PO 2 each Q12HR BUDDY Administration Protocol Nutrition/Malnutrition Assess - Dietary Evaluation Nutrition/Malnutrition Findings: Nutrition Notes Start: 09/12/20 10:45 Freq: Status: Active Protocol: Document 09/15/20 10:36 JUN (Rec: 09/15/20 10:37 JUN [id number]) Nutrition Notes Need for Assessment generated from: LOS Initial or Follow up Brief Note Current Diagnosis Diabetes Other Pertinent Diagnosis HIV, Suspected CA Current Diet Mechanical Soft Subjective/Other Information Screen for LOS. Per chart, pt consuming 100% of meals. Nutrition Intervention Revisit per MD consult or patient Sign Off request: - Malnutrition Assessment Minimum of two criteria: No - Attestation Statement I have reviewed and agreed w/ Malnutrition eval & tx plan: Yes
--- NOTE | 2020-09-17 11:20 | Progress Note ---
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 Agree with plans for neur osurgical evaluation as well as rule out of infectious potential causes. Lesions do not have the typical ring-enhancing appearance of toxoplasma, feel more likely to be lymphoma. Ddx toxoplasmosis, primary PET [employer]ER lymphoma, other infections less likely brain abscesses #HIV: Viral load 4.6 million, TW8=531. Not on treatment. Reports recent infection, though that is questionable. #Diabetes: tight glycemic control for best outcomes. Recs: -Ordered toxoplasmosis antibodies, will take some time to come back. -Ordered AFB blood culture -Agree with need for abdominal lymph node biopsy -Started Bactrim 2x DS q12h as empiric toxo therapy in the meantime pending diagnosis (or normal CD4 count). If not other definitive diagnosis in a few weeks would re-image to see if improvement on MRI -Given he is unfunded, care coordination as an outpatient will be difficult. Believe he needs lymph node biopsy prior to discharge, as well as follow-up with [facility]. He will also need oncology follow-up. Olimpia Arias MD [facility] ([facility]) Office [phone] Subjective Date of service: 09/17/20 Principal diagnosis: Brain lesions Interval history: Patient complaining of headache right-sided mouth pain right-sided. No fever. Objective - Exam Narrative Exam: General appearance: Alert in NAD Eyes: anicteric sclerae, moist conjunctivae; no lid-lag; PERRLA HENT: Normocephalic, Atraumatic; normal external ears, nares open, oropharynx clear Neck: supple, tracheal midline, no JVD Lungs: CTA, CV: RRR no murmur Abdomen: Soft, non-tender; no masses or hepatosplenomegaly Extremities: no edema, no cyanosis Skin: No rash. Psych: no agitated Neuro: alert and oriented x 3. right sided weakness - Constitutional Vitals: Vital Signs Temp Pulse Resp BP Pulse Ox 98.1 F 89 18 120/70 97 09/17/20 08:28 09/17/20 08:28 09/17/20 04:45 09/17/20 08:28 09/17/20 08:28 Temperature -Last 24 Hours Temperature 98.1 F Temperature 97.6 F Temperature 98.0 F Temperature 98.6 F Temperature 98.9 F - Labs CBC & Chem 7: 09/17/20 06:09 09/15/20 09:12 Labs: Abnormal lab results 09/17/20 Range/Units 06:09 MCV 82 L (84-94) fl MCH 27 L (28-32) pg Lymph % (Auto) 3.1 L (13.4-35.0) % Lymph # (Auto) 0.3 L (1.2-5.4) K/mm3 Seg Neutrophils % 89.5 H (40.0-70.0) %
[2020-09-17] MEDS ORDERED: TEMAZEPAM 15 MG CAP PO PRN (21:29)
--- NOTE | 2020-09-17 23:33 | Event Note ---
Date: 09/17/20 Reviewed consult. IR does not perform biopsies at [facility]. Diagnostic radiology perform biopsies. Recommend coordination between diagnostic radiology tomorrow to coordinate biopsy if desired.
[2020-09-18] MEDS: dexAMETHasone 4 MG/ML VIAL IV SCH ×4 (00:15→18:30)
[2020-09-18 08:16] LABS: HIV-1 Antibody Differentiation SEE SCANNED RESULT; HIV-2 Antibody Differentiation SEE SCANNED RESULT
[2020-09-18] MEDS: levETIRAcetam 500 MG TAB PO SCH ×2 (09:26→20:21)
[2020-09-18] MEDS: ONDANSETRON 4 MG/2 ML INJ IV PRN ×2 (09:42→18:30)
--- NOTE | 2020-09-18 12:03 | Progress Note ---
Assessment and Plan Assessment and plan: 49 YO Male with DM presents to ED for evaluation. Patient reports "I feel weak on my right side and I could not talk". Patient states he was in his usual state of health at bedtime around 2200 hrs. Patient states that he awoke from sleep at approximately 0600 hrs. and experienced a headache as well as drooling, slurred speech, and right arm and leg weakness. EMS was notified and upon arrival the patient was found to be in distress with a neurologic deficit. A code stroke was called and the patient was subsequently transported to [facility] for further care and evaluation of the aforementioned symptoms. The patient was seen and evaluated in the emergency department. All lab and imaging studies rev iewed. Patient found to have clinical symptoms consistent with CVA. Patient underwent CT scan of the head which revealed focal ischemia. -- CVA (cerebral vascular accident), ruled out with negative brain MRI --Cerebral metastasis vs toxoplasmosis ?? MRI brain showed 2 regions of vasogenic edema in the left frontal lobe and right parietal lobe. 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 CT thorax showed no focus for malignancy CT abdomen pelvis showed diffuse lymphadenopathy -suggestive of possible lym phoma vs lymhadenopathy related to HIV, consulted hematology and ID Neurology recommended IV Decadron -will hold for now till we r/o infectious etiology --HIV, when asked if he has high risk for HIV he then stated that he was told that he is positive for HIV about 4 days ago prior to this admission will order for repeat test, CD4 count, consult ID --History of weight loss, consult dietary Likely related to his underlying medical condition -DM type 2, BG under control, SSI as needed -- DVT prophylaxis SCDs bilateral lower extremities while in bed, patient is ambulatory. Daily course: 09/09: Pending MRI. follow MRI and neuro recommendation 09/10: MRI brain without contrast result noted, possible metastatic cervical disease - order for MRI brain with contrast, follow clinically 09/11: MRI brain with contrast showed possible metastatic disease. CT abdomen pelvis showed diffuse lymphadenopathy. Hematology and oncology consulted. Neurology recommended IV Decadron - will hold for now till can r/o toxoplasmosis. Also consulted neurosurgeon Dr. Roman and ID for further recommendation. We will also start on Keppra prophylactically to prevent seizure. 09/12: Noted ID recommendation. Stable lesion most likely lymphoma per ID. Wait for neurosurgery recommendation. CD4 count, serology for toxoplasma, RPR still pending. 09/13: Pending LP and toxoplasmosis serology. Pending CD4 count. Follow ID and neurology recommendation. 09/14: Plan for LP today but could not be performed by the radiologist as it was a difficult tap. Pending serology for toxoplasmosis, CD4 count. Patient started on Bactrim pending CD4 count.. Discussed with ID and recommending lymph node biopsy. Consulted IR for abdominal lymph node biopsy to get to confirm diagnosis. We will continue to follow 09/15: Patient pending lymph node biopsy. Coordination of care of patient was co ncerning to ID and I agree with such impression. Will discuss with case management to assist 09/16/20 patient complained of headache. Not feeling good. Waiting for lymph node biopsy. Absolute CD4 count 32 absolute CD3 count 161 absolute CD8 count 138. Waiting for toxoplasmosis antibodies and AB blood culture. Continue Bactrim double strength p.o. twice a day. Continue current treatment. I nfectious disease follow-up. Case management evaluation to help the patient with treatment. Patient need to follow-up with [facility] as outpatient. 09/17/20 patient patient feels better except complaining of headache. Possible lymph node biopsy by interventional radiology in the morning. Absolute CD4 count 32 absolute CD3 count 161 absolute CD8 count 138. Waiting for toxoplasmosis antibodies and AB blood culture. Continue Bactrim double strength p.o. twice a day. Continue current treatment. Infectious disease follow-up. Case management evaluation to help the patient with treatment. Patient need to follow-up with [facility] as outpatient. 09/18: Patient clinically stable no blurry vision no headache this morning. Speech is unchanged. Still awaiting biopsy. I have called radiology and try to find out the status on this procedure. I have also discussed with ID to see if this can be arranged outpatient as patient is currently in halfway if we are unable to do this here. Otherwise patient will need to be transferred History Interval history: Patient seen and examined. Medical records and medication list reviewed. Abi iting Biopsy No acute event overnight noted by the RN. Patient denies any chest pain or difficulty breathing. Patient is tolerating diet. Discussed plan of care at bedside with patient. Pending lymph node biopsy Office of the law at bedside. Hospitalist Physical - Physical exam Narrative exam: GENERAL: well-developed -[place] male lying on bed appeared to be in no discomfort. HEENT: Normocephalic. Atraumatic. No conjunctival congestion or icterus. Patient has moist mucous membranes. NECK: Supple. Trachea midline. CHEST/LUNGS: Clear to auscultated bilaterally, breathing nonlabored. No wheezes crackles or rhonchi. HEART/CARDIOVASCULAR: Regular in rate and rhythm. S1 and S2 positive. ABDOMEN: Abdomen is soft, nontender. Patient has normal bowel sounds. SKIN: There is no rash. Warm and dry. NEURO: No focal motor deficit. Follows command. Patient has stutterering speech MUSCULOSKELETAL: No joint effusion or tenderness. EXTRIMITY: No edema, no cyanosis or clubbing. PSYCH: Cooperative. - Constitutional Vitals: Temp Pulse Resp BP Pulse Ox 98.0 F 72 18 94/70 92 09/18/20 07:56 09/18/20 07:56 09/18/20 08:43 09/18/20 07:56 09/18/20 07:56 General appearance: Present: no acute distress, mild distress HEART Score - HEART Score Troponin: Troponin T < 0.010 ng/mL (0.00-0.029) 09/08/20 09:15 Results - Labs CBC & Chem 7: 09/17/20 06:09 09/15/20 09:12 Labs: Laboratory Last Values WBC 8.2 K/mm3 (4.5-11.0) 09/17/20 06:09 RBC 4.46 M/mm3 (3.65-5.03) 09/17/20 06:09 Hgb 12.1 gm/dl (11.8-15.2) 09/17/20 06:09 Hct 36.4 % (35.5-45.6) 09/17/20 06:09 MCV 82 fl (84-94) L 09/17/20 06:09 MCH 27 pg (28-32) L 09/17/20 06:09 MCHC 33 % (32-34) 09/17/20 06:09 RDW 14.3 % (13.2-15.2) 09/17/20 06:09 Plt Count 367 K/mm3 (140-440) 09/17/20 06:09 Lymph % (Auto) 3.1 % (13.4-35.0) L 09/17/20 06:09 Hunt % (Auto) 7.1 % (0.0-7.3) 09/17/20 06:09 Eos % (Auto) 0.0 % (0.0-4.3) 09/17/20 06:09 Baso % (Auto) 0.3 % (0.0-1.8) 09/17/20 06:09 Lymph # (Auto) 0.3 K/mm3 (1.2-5.4) L 09/17/20 06:09 Hunt # (Auto) 0.6 K/mm3 (0.0-0.8) 09/17/20 06:09 Eos # (Auto) 0.0 K/mm3 (0.0-0.4) 09/17/20 06:09 Baso # (Auto) 0.0 K/mm3 (0.0-0.1) 09/17/20 06:09 Seg Neutrophils % 89.5 % (40.0-70.0) H 09/17/20 06:09 Seg Neutrophils # 7.3 K/mm3 (1.8-7.7) 09/17/20 06:09 Abs Lymphs (Manual) 248 cells/uL (850-3900) L 09/11/20 18:47 PT 13.7 Sec. (12.2-14.9) 09/13/20 16:39 INR 1.06 (0.87-1.13) 09/13/20 16:39 APTT 35.7 Sec. (24.2-36.6) 09/13/20 16:39 Thrombin Time 17.9 Sec. (15.1-19.6) 09/08/20 09:15 Sodium 141 mmol/L (137-145) 09/15/20 09:12 Potassium 4.0 mmol/L (3.6-5.0) 09/15/20 09:12 Chloride 106.9 mmol/L (98-107) 09/15/20 09:12 Carbon Dioxide 25 mmol/L (22-30) 09/15/20 09:12 Anion Gap 13 mmol/L 09/15/20 09:12 BUN 12 mg/dL (9-20) 09/15/20 09:12 Creatinine 1.0 mg/dL (0.8-1.3) 09/15/20 09:12 Estimated GFR > 60 ml/min 09/15/20 09:12 BUN/Creatinine Ratio 12 % 09/15/20 09:12 Glucose 154 mg/dL (75-100) H 09/15/20 09:12 POC Glucose 90 mg/dL (70-105) 09/10/20 21:23 Hemoglobin A1c 5.9 % (4-6) 09/11/20 18:47 Calcium 8.3 mg/dL (8.4-10.2) L 09/15/20 09:12 Iron 63 ug/dL (49-181) 09/14/20 04:52 TIBC 211 mcg/dL (250-450) L 09/14/20 04:52 Total Bilirubin < 0.20 mg/dL (0.1-1.2) 09/12/20 13:04 Direct Bilirubin < 0.2 mg/dL (0-0.2) 09/12/20 13:04 Indirect Bilirubin 0.0 mg/dL 09/12/20 13:04 AST 19 units/L (5-40) 09/12/20 13:04 ALT 18 units/L (7-56) 09/12/20 13:04 Alkaline Phosphatase 79 units/L (35-129) 09/12/20 13:04 Lactate Dehydrogenase 202 units/L (91-180) H 09/12/20 13:04 Troponin T < 0.010 ng/mL (0.00-0.029) 09/08/20 09:15 C-Reactive Protein 0.30 mg/dL (0.00-1.30) 09/13/20 05:19 Total Protein 7.3 g/dL (6.3-8.2) 09/12/20 13:04 Albumin 3.0 g/dL (3.9-5) L 09/12/20 13:04 Albumin/Globulin Ratio 0.7 % 09/12/20 13:04 Nasal Screen MRSA (PCR) Negative (Negative) 09/08/20 10:00 Lymph Enumerat CD4/CD8 0.23 (0.86-5.00) L 09/11/20 18:47 % CD3 Cells 65 % (57-85) 09/11/20 18:47 Absolute CD3 Count 161 cells/uL (840-3060) L 09/11/20 18:47 % CD4 Cells 11 % (30-61) L 09/11/20 18:47 Absolute CD4 Count 32 cells/uL (490-1740) L 09/11/20 18:47 % CD8 Cells 49 % (12-42) H 09/11/20 18:47 Absolute CD8 Count 138 cells/uL (180-1170) L 09/11/20 18:47 % CD19 Cells 3 % (6-29) L 09/11/20 18:47 Absolute CD19 Count 7 cells/uL (110-660) L 09/11/20 18:47 Syphilis IgG Antibody Nonreactive (NonReactive) 09/12/20 13:04 HIV-1 Antibody See scanned result 09/11/20 Unknown HIV-1 RNA PCR copies/ml [id number] Copies/mL H 09/13/20 05:19 HIV-1 RNA (PCR) log 6.64 Log cps/mL H 09/13/20 05:19 HIV-2 Ab (Immunoblot) See scanned result 09/11/20 Unknown Toxoplasma IgG Ab 196.00 IU/mL (<7.20) H 09/11/20 18:47 Toxoplasma IgM Ab <8.00 AU/mL (<8.00) 09/11/20 18:47 - Diagnostic Impressions Diagnostic Impressions: Echocardiogram 09/08/20 12:25 Transthoracic Echocardiogram Indication: Stroke BP: 133/91 HR: 65 Conclusions *Global left ventricular systolic function is normal. *The estimated ejection fraction is 55-60%. *The right ventricular global systolic function is normal. *No atrial septal defected is demonstrated by agitated saline contrast. *There is no evidence of aortic regurgitation. *There is trace of mitral regurgitation. *There is trace tricuspid regurgitation. *The right ventricular systolic pressure is calculated at 25 mmHg. *There is trace pulmonic regurgitation. Findings Left Ventricle: The left ventricular chamber size is normal. There is no left ventricular hypertrophy. Global left ventricular wall motion and contractility are within normal limits. Global left ventricular systolic function is normal. The estimated ejection fraction is 55-60%. There is an E to A reversal in the mitral valve flow pattern suggestive of diastolic dysfunction. Left Atrium: The left atrial chamber size is normal. Right Ventricle: The right ventricle is slightly dilated. The right ventricular global systolic function is normal. Right Atrium: The right atrial cavity size is normal. No atrial septal defected is demonstrated by agitated saline contrast. Aortic Valve: There is no evidence of aortic valve thickening. There is no evidence of aortic regurgitation. Mitral Valve: The mitral valve leaflets are mildly thickened. There is trace of mitral regurgitation. Tricuspid Valve: The tricuspid valve leaflets are normal. There is trace tricuspid regurgitation. The right ventricular systolic pressure is calculated at 25 mmHg. Pulmonic Valve: There is no evidence of pulmonic valve thickening. There is trace pulmonic regurgitation. Pericardium: There is no pericardial effusion. Aorta: The aorta appears normal. Venous: The inferior vena cava appears normal in size. There is a greater than 50% respiratory change in the inferior vena cava dimension. Measurements Chambers 2D Name Value Normal Range IVSd (2D) 0.93 cm (0.6 - 1.1) LVPWd (2D) 0.87 cm (0.6 - 1.1) LVIDd (2D) 4.43 cm (3.7 - 5.6) LVIDs (2D) 2.81 cm (2 - 3.8) LV FS (2D) 36.69 % - EF Teichholz (2D) 66.7 % - Ao root diameter (2D) 3.07 cm (2 - 3.7) Volumes/Mass Name Value Normal Range LA ESV SP 4CH (A/L) 42.3 ml - LA ESV SP 2CH (A/L) 60.27 ml - LA ESV BP (A/L) 54.4 ml - LA ESV BP (A/L) index 27.61 ml/m2 - LA ESV SP 4CH (MOD) 38.19 ml - LA ESV SP 2CH (MOD) 53.81 ml - LA ESV BP (MOD) 48.73 ml - LA ESV BP (MOD) index 24.73 ml/m2 - Diastolic/Systolic Function Name Value Normal Range MV E-wave Vmax 0.51 m/sec - MV deceleration time 255.2 msec - MV A-wave Vmax 0.56 m/sec - MV E:A ratio 0.91 ratio - Aortic Valve Name Value Normal Range AV Vmax 1.35 m/sec - AV VTI 27.47 cm - AV peak gradient 7.3 mmHg - AV mean gradient 4.36 mmHg - LVOT diameter 2.13 cm - LVOT Vmax 1.16 m/sec - LVOT VTI 21.62 cm - LVOT peak gradient 5.4 mmHg - LVOT mean gradient 2.49 mmHg - SV LVOT 77.11 ml - BEAU (continuity Vmax) 3.07 cm2 - BEAU (continuity VTI) 2.81 cm2 - Ascending Ao 2.83 cm - Tricuspid Valve Name Value Normal Range TR Vmax 2.36 m/sec - TR peak gradient 22 mmHg - RAP 3 mmHg - RVSP 25 mmHg - IVC diameter 1.85 cm (1.2 - 2.3) Pulmonic Valve/Qp:Qs Name Value Normal Range PV Vmax 0.98 m/sec - PV peak gradient 3.88 mmHg - HI end-diastolic Vmax 1.11 m/sec - PV acceleration time 98.95 msec - Iqbal/IV: Voiding Method Urinal Active Medications - Current Medications Current Medications: Generic Name Dose Route Start Last Admin Trade Name Freq PRN Reason Stop Dose Admin Acetaminophen 650 mg 09/08/20 12:23 09/16/20 07:54 Acetaminophen 325 Mg Tab PO 650 mg Q4H PRN Administration Pain, Mild (1-3) Bisacodyl 10 mg 09/08/20 12:23 Bisacodyl 10 Mg Rect Supp HI QDAY PRN Constipation Dexamethasone 4 mg 09/13/20 12:00 09/18/20 06:41 Dexamethasone 4 Mg/Ml Vial IV 4 mg Q6HR BUDDY Administration Levetiracetam 500 mg 09/11/20 22:00 09/18/20 09:26 Levetiracetam 500 Mg Tab PO 500 mg BID BUDDY Administration Magnesium Hydroxide 30 ml 09/08/20 12:23 Magnesium Hydroxide (Mom) Oral Liqd Udc PO Q4H PRN Constipation Metoclopramide HCl 10 mg 09/08/20 12:23 Metoclopramide 10 Mg Tab PO Q6H PRN Nausea And Vomiting Ondansetron HCl 4 mg 09/08/20 12:23 09/18/20 09:42 Ondansetron 4 Mg/2 Ml Inj IV 4 mg Q8H PRN Administration Nausea And Vomiting Promethazine HCl 25 mg 09/08/20 12:23 Promethazine 25 Mg Rect Supp HI Q6H PRN Nausea And Vomiting Sodium Chloride 10 ml 09/08/20 12:23 Sodium Chloride 0.9% 10 Ml Flush Syringe IV PRN PRN LINE FLUSH Temazepam 15 mg 09/17/20 21:29 09/17/20 23:09 Temazepam 15 Mg Cap PO 15 mg QHS PRN Administration Sleep Trimethoprim/Sulfamethoxazole 2 each 09/13/20 22:00 09/17/20 23:09 Sulfamethoxazole/Trimethoprim 800/160mg Ds Tab PO 2 each Q12HR BUDDY Administration Protocol Nutrition/Malnutrition Assess - Dietary Evaluation Nutrition/Malnutrition Findings: Nutrition Notes Start: 09/12/20 10:45 Freq: Status: Active Protocol: Document 09/15/20 10:36 (Rec: 09/15/20 10:37 [id number]) Nutrition Notes Need for Assessment generated from: LOS Initial or Follow up Brief Note Current Diagnosis Diabetes Other Pertinent Diagnosis HIV, Suspected CA Current Diet Mechanical Soft Subjective/Other Information Screen for LOS. Per chart, pt consuming 100% of meals. Nutrition Intervention Revisit per MD consult or patient Sign Off request:
[2020-09-18] MEDS: SULFAMETHOXAZOLE/TRIMETHOPRIM 800/160MG DS TAB PO SCH ×2 (13:22→20:21)
[2020-09-18] MEDS: METOCLOPRAMIDE 10 MG TAB PO PRN ×2 (13:25→20:21)
--- NOTE | 2020-09-18 14:22 | Progress Note ---
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 Toxoplasma IgG is positive. Ddx toxoplasmosis v/s primary [employer] lymphoma. LP unable to be done by radiology due to difficult tap. #Intra-abdominal lymphadenopathy: Noted on CT abdomen and pelvis: Could be lymphoma versus HIV related versus possibility of disseminated MAC. It seems his abdominal lymph nodes are not accessible for CT-guided biopsy based on radiology note. #HIV/AIDS: Viral load 4.6 million, CD4=32. Not on treatment. Will initiate ART only once diagnosis of brain lesions is confirmed due to risk of IRIS. #Diabetes: tight glycemic control for best outcomes. Recs: -continue empiric Bactrim -It seems his abdominal lymph nodes are not accessible for CT-guided biopsy based on radiology note -Given positive toxoplasma serology, continue Bactrim and re-image later this week - MRI Brain with and without contrast, if no improvement noted, patient would need transfer for a brain biopsy -F/U AFB blood culture Matias Tucker MD, FACP [facility] ([facility] O: [phone] F: [phone] Subjective Date of service: 09/18/20 Principal diagnosis: Brain lesions Interval history: Afebrile. Patient reports some nausea but no vomiting. His speech deficit and right-sided weakness have not improved much since admission. Objective - Exam Narrative Exam: Physical Exam: Constitutional: Alert, cooperative. No acute distress Head, Ears, Nose: Normocephalic, atraumatic. External ears, nose normal Eyes: Conjunctivae/corneas clear. No icterus. No ptosis. Neck: Supple, no meningeal signs Cardiovascular: S1, S2 normal. Respiratory: Good air entry, clear to auscultation bilaterally GI: Soft, non-tender; bowel sounds normal. No peritoneal signs Musculoskeletal: No pedal edema, no cyanosis. Skin: No rash or abscess Hem/Lymphatic: No palpable cervical or supraclavicular nodes. No lymphangitis Psych: Mood ok. Affect normal Neurological: Awake, alert, oriented. Dysarthria and right-sided weakness present - Constitutional Vitals: Vital Signs Temp Pulse Resp BP Pulse Ox 98.0 F 68 18 113/72 93 09/18/20 11:43 09/18/20 11:43 09/18/20 11:43 09/18/20 11:43 09/18/20 11:43 Temperature -Last 24 Hours Temperature 98.0 F Temperature 98.0 F Temperature 98.2 F Temperature 98.2 F Temperature 98.3 F Temperature 98.3 F - Labs CBC & Chem 7: 09/17/20 06:09 09/15/20 09:12
[2020-09-18] MEDS: ACETAMINOPHEN 325 MG TAB PO PRN (20:22)
[2020-09-19] MEDS: dexAMETHasone 4 MG/ML VIAL IV SCH ×4 (07:42→23:35)
[2020-09-19] MEDS: levETIRAcetam 500 MG TAB PO SCH ×3 (07:42→22:00)
[2020-09-19] MEDS: SULFAMETHOXAZOLE/TRIMETHOPRIM 800/160MG DS TAB PO SCH ×3 (07:42→23:29)
--- NOTE | 2020-09-19 10:27 | Progress Note ---
Assessment and Plan Assessment and plan: 49 YO Male with DM presents to ED for evaluation. Patient reports "I feel weak on my right side and I could not talk". Patient states he was in his usual state of health at bedtime around 2200 hrs. Patient states that he awoke from sleep at approximately 0600 hrs. and experienced a headache as well as drooling, slurred speech, and right arm and leg weakness. EMS was notified and upon arrival the patient was found to be in distress with a neurologic deficit. A code stroke was called and the patient was subsequently transported to [facility] for further care and evaluation of the aforementioned symptoms. The patient was seen and evaluated in the emergency department. All lab and imaging studies re viewed. Patient found to have clinical symptoms consistent with CVA. Patient underwent CT scan of the head which revealed focal ischemia. -- CVA (cerebral vascular accident), ruled out with negative brain MRI --Cerebral metastasis vs toxoplasmosis ?? MRI brain showed 2 regions of vasogenic edema in the left frontal lobe and right parietal lobe. 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 CT thorax showed no focus for malignancy CT abdomen pelvis showed diffuse lymphadenopathy -suggestive of possible ly mphoma vs lymhadenopathy related to HIV, consulted hematology and ID Neurology recommended IV Decadron -will hold for now till we r/o infectious etiology --HIV, when asked if he has high risk for HIV he then stated that he was told that he is positive for HIV about 4 days ago prior to this admission will order for repeat test, CD4 count, consult ID --History of weight loss, consult dietary Likely related to his underlying medical condition -DM type 2, BG under control, SSI as needed -- DVT prophylaxis SCDs bilateral lower extremities while in bed, patient is ambulatory. Daily course: 09/09: Pending MRI. follow MRI and neuro recommendation 09/10: MRI brain without contrast result noted, possible metastatic cervical disease - order for MRI brain with contrast, follow clinically 09/11: MRI brain with contrast showed possible metastatic disease. CT abdomen pelvis showed diffuse lymphadenopathy. Hematology and oncology consulted. Neurology recommended IV Decadron - will hold for now till can r/o toxoplasmosis. Also consulted neurosurgeon Dr. Roman and ID for further recommendation. We will also start on Keppra prophylactically to prevent seizure. 09/12: Noted ID recommendation. Stable lesion most likely lymphoma per ID. Wait for neurosurgery recommendation. CD4 count, serology for toxoplasma, RPR still pending. 09/13: Pending LP and toxoplasmosis serology. Pending CD4 count. Follow ID and neurology recommendation. 09/14: Plan for LP today but could not be performed by the radiologist as it was a difficult tap. Pending serology for toxoplasmosis, CD4 count. Patient started on Bactrim pending CD4 count.. Discussed with ID and recommending lymph node biopsy. Consulted IR for abdominal lymph node biopsy to get to confirm diagnosis. We will continue to follow 09/15: Patient pending lymph node biopsy. Coordination of care of patient was c oncerning to ID and I agree with such impression. Will discuss with case management to assist 09/16/20 patient complained of headache. Not feeling good. Waiting for lymph node biopsy. Absolute CD4 count 32 absolute CD3 count 161 absolute CD8 count 138. Waiting for toxoplasmosis antibodies and AB blood culture. Continue Bactrim double strength p.o. twice a day. Continue current treatment. Infectious disease follow-up. Case management evaluation to help the patient with treatment. Patient need to follow-up with [facility] as outpatient. 09/17/20 patient patient feels better except complaining of headache. Possible lymph node biopsy by interventional radiology in the morning. Absolute CD4 count 32 absolute CD3 count 161 absolute CD8 count 138. Waiting for toxoplasmosis antibodies and AB blood culture. Continue Bactrim double strength p.o. twice a day. Continue current treatment. Infectious disease follow-up. Case management evaluation to help the patient with treatment. Patient need to follow-up with [facility] as outpatient. 09/18: Patient clinically stable no blurry vision no headache this morning. Speech is unchanged. Still awaiting biopsy. I have called radiology and try to find out the status on this procedure. I have also discussed with ID to see if this can be arranged outpatient as patient is currently in halfway if we are unable to do this here. Otherwise patient will need to be transferred 09/19: Continue empiric Bactrim. Apparently, abdominal lymph nodes are not accessible for CT-guided biopsy per radiology. Patient has toxoplasma IgG that is positive. ID would like to reimage with MRI brain with and without contrast to further delineate/determine need for brain biopsy. Follow-up AFB culture History Interval history: 49 YO Male with DM presents to ED for evaluation. Patient reports "I feel weak on my right side and I could not talk". Patient states he was in his usual state of health at bedtime around 2200 hrs. Patient states that he awoke from sleep at approximately 0600 hrs. and experienced a headache as well as drooling, slurred speech, and right arm and leg weakness. EMS was notified and upon arrival the patient was found to be in distress with a neurologic deficit. A code stroke was called and the patient was subsequently transported to [facility] for further care and evaluation of the aforementioned symptoms. The patient was seen and evaluated in the emergency department. All lab and imaging studies reviewed. Patient found to have clinical symptoms consistent with CVA. Patient underwent CT scan of the head which revealed focal ischemia. No new issues overnight. Hospitalist Physical - Constitutional Vitals: Temp Pulse Resp BP Pulse Ox 98.1 F 73 18 119/75 94 09/19/20 07:37 09/19/20 07:37 09/19/20 07:50 09/19/20 07:37 09/19/20 07:37 General appearance: Present: no acute distress, mild distress - EENT Eyes: Present: PERRL, EOM intact ENT: hearing intact, clear oral mucosa, dentition normal - Neck Neck: Present: supple, normal ROM - Respiratory Respiratory effort: normal Respiratory: bilateral: CTA - Cardiovascular Rhythm: regular Heart Sounds: Present: S1 & S2. Absent: gallop, rub - Extremities Extremities: no ischemia, No edema, Full ROM - Abdominal General gastrointestinal: soft, non-tender, non-distended, normal bowel sounds - Integumentary Integumentary: Present: clear, warm, dry - Neurologic Neurologic: CNII-XII intact, moves all extremities HEART Score - HEART Score Troponin: Troponin T < 0.010 ng/mL (0.00-0.029) 09/08/20 09:15 Results - Labs CBC & Chem 7: 09/17/20 06:09 09/15/20 09:12 Labs: Laboratory Last Values WBC 8.2 K/mm3 (4.5-11.0) 09/17/20 06:09 RBC 4.46 M/mm3 (3.65-5.03) 09/17/20 06:09 Hgb 12.1 gm/dl (11.8-15.2) 09/17/20 06:09 Hct 36.4 % (35.5-45.6) 09/17/20 06:09 MCV 82 fl (84-94) L 09/17/20 06:09 MCH 27 pg (28-32) L 09/17/20 06:09 MCHC 33 % (32-34) 09/17/20 06:09 RDW 14.3 % (13.2-15.2) 09/17/20 06:09 Plt Count 367 K/mm3 (140-440) 09/17/20 06:09 Lymph % (Auto) 3.1 % (13.4-35.0) L 09/17/20 06:09 [place] % (Auto) 7.1 % (0.0-7.3) 09/17/20 06:09 Eos % (Auto) 0.0 % (0.0-4.3) 09/17/20 06:09 Baso % (Auto) 0.3 % (0.0-1.8) 09/17/20 06:09 Lymph # (Auto) 0.3 K/mm3 (1.2-5.4) L 09/17/20 06:09 [place] # (Auto) 0.6 K/mm3 (0.0-0.8) 09/17/20 06:09 Eos # (Auto) 0.0 K/mm3 (0.0-0.4) 09/17/20 06:09 Baso # (Auto) 0.0 K/mm3 (0.0-0.1) 09/17/20 06:09 Seg Neutrophils % 89.5 % (40.0-70.0) H 09/17/20 06:09 Seg Neutrophils # 7.3 K/mm3 (1.8-7.7) 09/17/20 06:09 Abs Lymphs (Manual) 248 cells/uL (850-3900) L 09/11/20 18:47 PT 13.7 Sec. (12.2-14.9) 09/13/20 16:39 INR 1.06 (0.87-1.13) 09/13/20 16:39 APTT 35.7 Sec. (24.2-36.6) 09/13/20 16:39 Thrombin Time 17.9 Sec. (15.1-19.6) 09/08/20 09:15 Sodium 141 mmol/L (137-145) 09/15/20 09:12 Potassium 4.0 mmol/L (3.6-5.0) 09/15/20 09:12 Chloride 106.9 mmol/L (98-107) 09/15/20 09:12 Carbon Dioxide 25 mmol/L (22-30) 09/15/20 09:12 Anion Gap 13 mmol/L 09/15/20 09:12 BUN 12 mg/dL (9-20) 09/15/20 09:12 Creatinine 1.0 mg/dL (0.8-1.3) 09/15/20 09:12 Estimated GFR > 60 ml/min 09/15/20 09:12 BUN/Creatinine Ratio 12 % 09/15/20 09:12 Glucose 154 mg/dL (75-100) H 09/15/20 09:12 POC Glucose 90 mg/dL (70-105) 09/10/20 21:23 Hemoglobin A1c 5.9 % (4-6) 09/11/20 18:47 Calcium 8.3 mg/dL (8.4-10.2) L 09/15/20 09:12 Iron 63 ug/dL (49-181) 09/14/20 04:52 TIBC 211 mcg/dL (250-450) L 09/14/20 04:52 Total Bilirubin < 0.20 mg/dL (0.1-1.2) 09/12/20 13:04 Direct Bilirubin < 0.2 mg/dL (0-0.2) 09/12/20 13:04 Indirect Bilirubin 0.0 mg/dL 09/12/20 13:04 AST 19 units/L (5-40) 09/12/20 13:04 ALT 18 units/L (7-56) 09/12/20 13:04 Alkaline Phosphatase 79 units/L (35-129) 09/12/20 13:04 Lactate Dehydrogenase 202 units/L (91-180) H 09/12/20 13:04 Troponin T < 0.010 ng/mL (0.00-0.029) 09/08/20 09:15 C-Reactive Protein 0.30 mg/dL (0.00-1.30) 09/13/20 05:19 Total Protein 7.3 g/dL (6.3-8.2) 09/12/20 13:04 Albumin 3.0 g/dL (3.9-5) L 09/12/20 13:04 Albumin/Globulin Ratio 0.7 % 09/12/20 13:04 Nasal Screen MRSA (PCR) Negative (Negative) 09/08/20 10:00 Lymph Enumerat CD4/CD8 0.23 (0.86-5.00) L 09/11/20 18:47 % CD3 Cells 65 % (57-85) 09/11/20 18:47 Absolute CD3 Count 161 cells/uL (840-3060) L 09/11/20 18:47 % CD4 Cells 11 % (30-61) L 09/11/20 18:47 Absolute CD4 Count 32 cells/uL (490-1740) L 09/11/20 18:47 % CD8 Cells 49 % (12-42) H 09/11/20 18:47 Absolute CD8 Count 138 cells/uL (180-1170) L 09/11/20 18:47 % CD19 Cells 3 % (6-29) L 09/11/20 18:47 Absolute CD19 Count 7 cells/uL (110-660) L 09/11/20 18:47 Syphilis IgG Antibody Nonreactive (NonReactive) 09/12/20 13:04 HIV-1 Antibody See scanned result 09/11/20 Unknown HIV-1 RNA PCR copies/ml [id number] Copies/mL H 09/13/20 05:19 HIV-1 RNA (PCR) log 6.64 Log cps/mL H 09/13/20 05:19 HIV-2 Ab (Immunoblot) See scanned result 09/11/20 Unknown Toxoplasma IgG Ab 196.00 IU/mL (<7.20) H 09/11/20 18:47 Toxoplasma IgM Ab <8.00 AU/mL (<8.00) 09/11/20 18:47 - Diagnostic Impressions Diagnostic Impressions: Echocardiogram 09/08/20 12:25 Transthoracic Echocardiogram Indication: Stroke BP: 133/91 HR: 65 Conclusions *Global left ventricular systolic function is normal. *The estimated ejection fraction is 55-60%. *The right ventricular global systolic function is normal. *No atrial septal defected is demonstrated by agitated saline contrast. *There is no evidence of aortic regurgitation. *There is trace of mitral regurgitation. *There is trace tricuspid regurgitation. *The right ventricular systolic pressure is calculated at 25 mmHg. *There is trace pulmonic regurgitation. Findings Left Ventricle: The left ventricular chamber size is normal. There is no left ventricular hypertrophy. Global left ventricular wall motion and contractility are within normal limits. Global left ventricular systolic function is normal. The estimated ejection fraction is 55-60%. There is an E to A reversal in the mitral valve flow pattern suggestive of diastolic dysfunction. Left Atrium: The left atrial chamber size is normal. Right Ventricle: The right ventricle is slightly dilated. The right ventricular global systolic function is normal. Right Atrium: The right atrial cavity size is normal. No atrial septal defected is demonstrated by agitated saline contrast. Aortic Valve: There is no evidence of aortic valve thickening. There is no evidence of aortic regurgitation. Mitral Valve: The mitral valve leaflets are mildly thickened. There is trace of mitral regurgitation. Tricuspid Valve: The tricuspid valve leaflets are normal. There is trace tricuspid regurgitation. The right ventricular systolic pressure is calculated at 25 mmHg. Pulmonic Valve: There is no evidence of pulmonic valve thickening. There is trace pulmonic regurgitation. Pericardium: There is no pericardial effusion. Aorta: The aorta appears normal. Venous: The inferior vena cava appears normal in size. There is a greater than 50% respiratory change in the inferior vena cava dimension. Measurements Chambers 2D Name Value Normal Range IVSd (2D) 0.93 cm (0.6 - 1.1) LVPWd (2D) 0.87 cm (0.6 - 1.1) LVIDd (2D) 4.43 cm (3.7 - 5.6) LVIDs (2D) 2.81 cm (2 - 3.8) LV FS (2D) 36.69 % - EF Teichholz (2D) 66.7 % - Ao root diameter (2D) 3.07 cm (2 - 3.7) Volumes/Mass Name Value Normal Range LA ESV SP 4CH (A/L) 42.3 ml - LA ESV SP 2CH (A/L) 60.27 ml - LA ESV BP (A/L) 54.4 ml - LA ESV BP (A/L) index 27.61 ml/m2 - LA ESV SP 4CH (MOD) 38.19 ml - LA ESV SP 2CH (MOD) 53.81 ml - LA ESV BP (MOD) 48.73 ml - LA ESV BP (MOD) index 24.73 ml/m2 - Diastolic/Systolic Function Name Value Normal Range MV E-wave Vmax 0.51 m/sec - MV deceleration time 255.2 msec - MV A-wave Vmax 0.56 m/sec - MV E:A ratio 0.91 ratio - Aortic Valve Name Value Normal Range AV Vmax 1.35 m/sec - AV VTI 27.47 cm - AV peak gradient 7.3 mmHg - AV mean gradient 4.36 mmHg - LVOT diameter 2.13 cm - LVOT Vmax 1.16 m/sec - LVOT VTI 21.62 cm - LVOT peak gradient 5.4 mmHg - LVOT mean gradient 2.49 mmHg - SV LVOT 77.11 ml - BEAU (continuity Vmax) 3.07 cm2 - BEAU (continuity VTI) 2.81 cm2 - Ascending Ao 2.83 cm - Tricuspid Valve Name Value Normal Range TR Vmax 2.36 m/sec - TR peak gradient 22 mmHg - RAP 3 mmHg - RVSP 25 mmHg - IVC diameter 1.85 cm (1.2 - 2.3) Pulmonic Valve/Qp:Qs Name Value Normal Range PV Vmax 0.98 m/sec - PV peak gradient 3.88 mmHg - NC end-diastolic Vmax 1.11 m/sec - PV acceleration time 98.95 msec - Iqbal/IV: Voiding Method Urinal Active Medications - Current Medications Current Medications: Generic Name Dose Route Start Last Admin Trade Name Freq PRN Reason Stop Dose Admin Acetaminophen 650 mg 09/08/20 12:23 09/18/20 20:22 Acetaminophen 325 Mg Tab PO 650 mg Q4H PRN Administration Pain, Mild (1-3) Bisacodyl 10 mg 09/08/20 12:23 Bisacodyl 10 Mg Rect Supp NC QDAY PRN Constipation Dexamethasone 4 mg 09/13/20 12:00 09/19/20 07:42 Dexamethasone 4 Mg/Ml Vial IV Not Given Q6HR BUDDY Levetiracetam 500 mg 09/11/20 22:00 09/19/20 09:06 Levetiracetam 500 Mg Tab PO 500 mg BID BUDDY Administration Magnesium Hydroxide 30 ml 09/08/20 12:23 Magnesium Hydroxide (Mom) Oral Liqd Udc PO Q4H PRN Constipation Metoclopramide HCl 10 mg 09/08/20 12:23 09/18/20 20:21 Metoclopramide 10 Mg Tab PO 10 mg Q6H PRN Administration Nausea And Vomiting Ondansetron HCl 4 mg 09/08/20 12:23 09/18/20 18:30 Ondansetron 4 Mg/2 Ml Inj IV 4 mg Q8H PRN Administration Nausea And Vomiting Promethazine HCl 25 mg 09/08/20 12:23 Promethazine 25 Mg Rect Supp NC Q6H PRN Nausea And Vomiting Sodium Chloride 10 ml 09/08/20 12:23 Sodium Chloride 0.9% 10 Ml Flush Syringe IV PRN PRN LINE FLUSH Temazepam 15 mg 09/17/20 21:29 09/17/20 23:09 Temazepam 15 Mg Cap PO 15 mg QHS PRN Administration Sleep Trimethoprim/Sulfamethoxazole 2 each 09/13/20 22:00 09/19/20 09:06 Sulfamethoxazole/Trimethoprim 800/160mg Ds Tab PO 2 each Q12HR BUDDY Administration Protocol Nutrition/Malnutrition Assess - Dietary Evaluation Nutrition/Malnutrition Findings: Nutrition Notes Start: 09/12/20 10:45 Freq: Status: Active Protocol: Document 09/15/20 10:36 (Rec: 09/15/20 10:37 [email or web address]) Nutrition Notes Need for Assessment generated from: LOS Initial or Follow up Brief Note Current Diagnosis Diabetes Other Pertinent Diagnosis HIV, Suspected CA Current Diet Mechanical Soft Subjective/Other Information Screen for LOS. Per chart, pt consuming 100% of meals. Nutrition Intervention Revisit per MD consult or patient Sign Off request:
[2020-09-19] MEDS: ONDANSETRON 4 MG/2 ML INJ IV PRN ×2 (11:28→21:39)
--- NOTE | 2020-09-19 13:38 | Progress Note ---
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 Toxoplasma IgG is positive. Ddx toxoplasmosis v/s COIN PURSE FRAMER lymphoma. LP unable to be done by radiology due to difficult tap. #Intra-abdominal lymphadenopathy: Noted on CT abdomen and pelvis: Could be lymphoma versus HIV related versus possibility of disseminated MAC. It seems his abdominal lymph nodes are not accessible for CT-guided biopsy based on radiology note. #HIV/AIDS: Viral load 4.6 million, CD4=32. Not on treatment. Will initiate ART only once diagnosis of brain lesions is confirmed due to risk of IRIS. #Diabetes: tight glycemic control for best outcomes. Recs: -continue empiric Bactrim -It seems his abdominal lymph nodes are not accessible for CT-guided biopsy based on radiology note -Given positive toxoplasma serology, continue Bactrim and re-image on Friday - MRI brain with and without contrast, if no improvement is noted, patient would need transfer for a brain biopsy -F/U AFB blood culture -serum Crypto Ag ordered Matias Tucker MD, FACP [facility] ([facility] O: [phone] F: [phone] Subjective Date of service: 09/19/20 Principal diagnosis: Brain lesions Interval history: Afebrile. He feels his speech deficit and right-sided weakness are stable. Objective - Exam Narrative Exam: Physical Exam: Constitutional: Alert, cooperative. No acute distress Head, Ears, Nose: Normocephalic, atraumatic. External ears, nose normal Eyes: Conjunctivae/corneas clear. No icterus. No ptosis. Neck: Supple, no meningeal signs Cardiovascular: S1, S2 normal. Respiratory: Good air entry, clear to auscultation bilaterally GI: Soft, non-tender; bowel sounds normal. No peritoneal signs Musculoskeletal: No pedal edema, no cyanosis. Skin: No rash or abscess Hem/Lymphatic: No palpable cervical or supraclavicular nodes. No lymphangitis Psych: Mood ok. Affect normal Neurological: Awake, alert, oriented. Dysarthria and right-sided weakness present - Constitutional Vitals: Vital Signs Temp Pulse Resp BP Pulse Ox 98.1 F 71 18 107/69 93 09/19/20 11:56 09/19/20 11:56 09/19/20 11:56 09/19/20 11:56 09/19/20 11:56 Temperature -Last 24 Hours Temperature 98.1 F Temperature 98.1 F Temperature 98.0 F Temperature 98.4 F Temperature 98.9 F Temperature 98.9 F Temperature 98.3 F - Labs CBC & Chem 7: 09/17/20 06:09 09/15/20 09:12
[2020-09-19] MEDS: ACETAMINOPHEN 325 MG TAB PO PRN (23:30)
[2020-09-20] MEDS: dexAMETHasone 4 MG/ML VIAL IV SCH ×4 (07:09→23:15)
[2020-09-20] MEDS: SULFAMETHOXAZOLE/TRIMETHOPRIM 800/160MG DS TAB PO SCH (09:37)
[2020-09-20] MEDS: levETIRAcetam 500 MG TAB PO SCH (09:37)
[2020-09-20] MEDS: ONDANSETRON 4 MG/2 ML INJ IV PRN ×2 (09:49→23:14)
--- NOTE | 2020-09-20 12:24 | Progress Note ---
Assessment and Plan Assessment and plan: 49 YO Male with DM presents to ED for evaluation. Patient reports "I feel weak on my right side and I could not talk". Patient states he was in his usual state of health at bedtime around 2200 hrs. Patient states that he awoke from sleep at approximately 0600 hrs. and experienced a headache as well as drooling, slurred speech, and right arm and leg weakness. EMS was notified and upon arrival the patient was found to be in distress with a neurologic deficit. A code stroke was called and the patient was subsequently transported to [facility] for further care and evaluation of the aforementioned symptoms. The patient was seen and evaluated in the emergency department. All lab and imaging studies re viewed. Patient found to have clinical symptoms consistent with CVA. Patient underwent CT scan of the head which revealed focal ischemia. -- CVA (cerebral vascular accident), ruled out with negative brain MRI --Cerebral metastasis vs toxoplasmosis ?? MRI brain showed 2 regions of vasogenic edema in the left frontal lobe and right parietal lobe. 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 CT thorax showed no focus for malignancy CT abdomen pelvis showed diffuse lymphadenopathy -suggestive of possible ly mphoma vs lymhadenopathy related to HIV, consulted hematology and ID Neurology recommended IV Decadron -will hold for now till we r/o infectious etiology --HIV, when asked if he has high risk for HIV he then stated that he was told that he is positive for HIV about 4 days ago prior to this admission will order for repeat test, CD4 count, consult ID --History of weight loss, consult dietary Likely related to his underlying medical condition -DM type 2, BG under control, SSI as needed -- DVT prophylaxis SCDs bilateral lower extremities while in bed, patient is ambulatory. Daily course: 09/09: Pending MRI. follow MRI and neuro recommendation 09/10: MRI brain without contrast result noted, possible metastatic cervical disease - order for MRI brain with contrast, follow clinically 09/11: MRI brain with contrast showed possible metastatic disease. CT abdomen pelvis showed diffuse lymphadenopathy. Hematology and oncology consulted. Neurology recommended IV Decadron - will hold for now till can r/o toxoplasmosis. Also consulted neurosurgeon Dr. Roman and ID for further recommendation. We will also start on Keppra prophylactically to prevent seizure. 09/12: Noted ID recommendation. Stable lesion most likely lymphoma per ID. Wait for neurosurgery recommendation. CD4 count, serology for toxoplasma, RPR still pending. 09/13: Pending LP and toxoplasmosis serology. Pending CD4 count. Follow ID and neurology recommendation. 09/14: Plan for LP today but could not be performed by the radiologist as it was a difficult tap. Pending serology for toxoplasmosis, CD4 count. Patient started on Bactrim pending CD4 count.. Discussed with ID and recommending lymph node biopsy. Consulted IR for abdominal lymph node biopsy to get to confirm diagnosis. We will continue to follow 09/15: Patient pending lymph node biopsy. Coordination of care of patient was c oncerning to ID and I agree with such impression. Will discuss with case management to assist 09/16/20 patient complained of headache. Not feeling good. Waiting for lymph node biopsy. Absolute CD4 count 32 absolute CD3 count 161 absolute CD8 count 138. Waiting for toxoplasmosis antibodies and AB blood culture. Continue Bactrim double strength p.o. twice a day. Continue current treatment. Infectious disease follow-up. Case management evaluation to help the patient with treatment. Patient need to follow-up with [facility] as outpatient. 09/17/20 patient patient feels better except complaining of headache. Possible lymph node biopsy by interventional radiology in the morning. Absolute CD4 count 32 absolute CD3 count 161 absolute CD8 count 138. Waiting for toxoplasmosis antibodies and AB blood culture. Continue Bactrim double strength p.o. twice a day. Continue current treatment. Infectious disease follow-up. Case management evaluation to help the patient with treatment. Patient need to follow-up with [facility] as outpatient. 09/18: Patient clinically stable no blurry vision no headache this morning. Speech is unchanged. Still awaiting biopsy. I have called radiology and try to find out the status on this procedure. I have also discussed with ID to see if this can be arranged outpatient as patient is currently in fpc if we are unable to do this here. Otherwise patient will need to be transferred 09/19: Continue empiric Bactrim. Apparently, abdominal lymph nodes are not accessible for CT-guided biopsy per radiology. Patient has toxoplasma IgG that is positive. ID would like to reimage with MRI brain with and without contrast to further delineate/determine need for brain biopsy. Follow-up AFB culture 09/20: Continue empiric Bactrim. Patient with follow-up MRI Friday to further delineate/determine need for brain biopsy. Follow-up AFB culture History Interval history: 49 YO Male with DM presents to ED for evaluation. Patient reports "I feel weak on my right side and I could not talk". Patient states he was in his usual state of health at bedtime around 2200 hrs. Patient states that he awoke from sleep at approximately 0600 hrs. and experienced a headache as well as drooling, slurred speech, and right arm and leg weakness. EMS was notified and upon arrival the patient was found to be in distress with a neurologic deficit. A code stroke was called and the patient was subsequently transported to [facility] for further care and evaluation of the aforementioned symptoms. The patient was seen and evaluated in the emergency department. All lab and imaging studies reviewed. Patient found to have clinical symptoms consistent with CVA. Patient underwent CT scan of the head which revealed focal ischemia. No new issues overnight. Hospitalist Physical - Constitutional Vitals: Temp Pulse Resp BP Pulse Ox 98.3 F 80 18 101/55 95 09/20/20 10:08 09/20/20 10:08 09/20/20 10:00 09/20/20 10:08 09/20/20 10:08 General appearance: Present: no acute distress, mild distress - EENT Eyes: Present: PERRL, EOM intact ENT: hearing intact, clear oral mucosa, dentition normal - Neck Neck: Present: supple, normal ROM - Respiratory Respiratory effort: normal Respiratory: bilateral: CTA - Cardiovascular Rhythm: regular Heart Sounds: Present: S1 & S2. Absent: gallop, rub - Extremities Extremities: no ischemia, No edema, Full ROM - Abdominal General gastrointestinal: soft, non-tender, non-distended, normal bowel sounds - Integumentary Integumentary: Present: clear, warm, dry - Neurologic Neurologic: CNII-XII intact, moves all extremities HEART Score - HEART Score Troponin: Troponin T < 0.010 ng/mL (0.00-0.029) 09/08/20 09:15 Results - Labs CBC & Chem 7: 09/17/20 06:09 09/15/20 09:12 Labs: Laboratory Last Values WBC 8.2 K/mm3 (4.5-11.0) 09/17/20 06:09 RBC 4.46 M/mm3 (3.65-5.03) 09/17/20 06:09 Hgb 12.1 gm/dl (11.8-15.2) 09/17/20 06:09 Hct 36.4 % (35.5-45.6) 09/17/20 06:09 MCV 82 fl (84-94) L 09/17/20 06:09 MCH 27 pg (28-32) L 09/17/20 06:09 MCHC 33 % (32-34) 09/17/20 06:09 RDW 14.3 % (13.2-15.2) 09/17/20 06:09 Plt Count 367 K/mm3 (140-440) 09/17/20 06:09 Lymph % (Auto) 3.1 % (13.4-35.0) L 09/17/20 06:09 [place] % (Auto) 7.1 % (0.0-7.3) 09/17/20 06:09 Eos % (Auto) 0.0 % (0.0-4.3) 09/17/20 06:09 Baso % (Auto) 0.3 % (0.0-1.8) 09/17/20 06:09 Lymph # (Auto) 0.3 K/mm3 (1.2-5.4) L 09/17/20 06:09 [place] # (Auto) 0.6 K/mm3 (0.0-0.8) 09/17/20 06:09 Eos # (Auto) 0.0 K/mm3 (0.0-0.4) 09/17/20 06:09 Baso # (Auto) 0.0 K/mm3 (0.0-0.1) 09/17/20 06:09 Seg Neutrophils % 89.5 % (40.0-70.0) H 09/17/20 06:09 Seg Neutrophils # 7.3 K/mm3 (1.8-7.7) 09/17/20 06:09 Abs Lymphs (Manual) 248 cells/uL (850-3900) L 09/11/20 18:47 PT 13.7 Sec. (12.2-14.9) 09/13/20 16:39 INR 1.06 (0.87-1.13) 09/13/20 16:39 APTT 35.7 Sec. (24.2-36.6) 09/13/20 16:39 Thrombin Time 17.9 Sec. (15.1-19.6) 09/08/20 09:15 Sodium 141 mmol/L (137-145) 09/15/20 09:12 Potassium 4.0 mmol/L (3.6-5.0) 09/15/20 09:12 Chloride 106.9 mmol/L (98-107) 09/15/20 09:12 Carbon Dioxide 25 mmol/L (22-30) 09/15/20 09:12 Anion Gap 13 mmol/L 09/15/20 09:12 BUN 12 mg/dL (9-20) 09/15/20 09:12 Creatinine 1.0 mg/dL (0.8-1.3) 09/15/20 09:12 Estimated GFR > 60 ml/min 09/15/20 09:12 BUN/Creatinine Ratio 12 % 09/15/20 09:12 Glucose 154 mg/dL (75-100) H 09/15/20 09:12 POC Glucose 90 mg/dL (70-105) 09/10/20 21:23 Hemoglobin A1c 5.9 % (4-6) 09/11/20 18:47 Calcium 8.3 mg/dL (8.4-10.2) L 09/15/20 09:12 Iron 63 ug/dL (49-181) 09/14/20 04:52 TIBC 211 mcg/dL (250-450) L 09/14/20 04:52 Total Bilirubin < 0.20 mg/dL (0.1-1.2) 09/12/20 13:04 Direct Bilirubin < 0.2 mg/dL (0-0.2) 09/12/20 13:04 Indirect Bilirubin 0.0 mg/dL 09/12/20 13:04 AST 19 units/L (5-40) 09/12/20 13:04 ALT 18 units/L (7-56) 09/12/20 13:04 Alkaline Phosphatase 79 units/L (35-129) 09/12/20 13:04 Lactate Dehydrogenase 202 units/L (91-180) H 09/12/20 13:04 Troponin T < 0.010 ng/mL (0.00-0.029) 09/08/20 09:15 C-Reactive Protein 0.30 mg/dL (0.00-1.30) 09/13/20 05:19 Total Protein 7.3 g/dL (6.3-8.2) 09/12/20 13:04 Albumin 3.0 g/dL (3.9-5) L 09/12/20 13:04 Albumin/Globulin Ratio 0.7 % 09/12/20 13:04 Nasal Screen MRSA (PCR) Negative (Negative) 09/08/20 10:00 Lymph Enumerat CD4/CD8 0.23 (0.86-5.00) L 09/11/20 18:47 % CD3 Cells 65 % (57-85) 09/11/20 18:47 Absolute CD3 Count 161 cells/uL (840-3060) L 09/11/20 18:47 % CD4 Cells 11 % (30-61) L 09/11/20 18:47 Absolute CD4 Count 32 cells/uL (490-1740) L 09/11/20 18:47 % CD8 Cells 49 % (12-42) H 09/11/20 18:47 Absolute CD8 Count 138 cells/uL (180-1170) L 09/11/20 18:47 % CD19 Cells 3 % (6-29) L 09/11/20 18:47 Absolute CD19 Count 7 cells/uL (110-660) L 09/11/20 18:47 Syphilis IgG Antibody Nonreactive (NonReactive) 09/12/20 13:04 HIV-1 Antibody See scanned result 09/11/20 Unknown HIV-1 RNA PCR copies/ml [id number] Copies/mL H 09/13/20 05:19 HIV-1 RNA (PCR) log 6.64 Log cps/mL H 09/13/20 05:19 HIV-2 Ab (Immunoblot) See scanned result 09/11/20 Unknown Toxoplasma IgG Ab 196.00 IU/mL (<7.20) H 09/11/20 18:47 Toxoplasma IgM Ab <8.00 AU/mL (<8.00) 09/11/20 18:47 - Diagnostic Impressions Diagnostic Impressions: Echocardiogram 09/08/20 12:25 Transthoracic Echocardiogram Indication: Stroke BP: 133/91 HR: 65 Conclusions *Global left ventricular systolic function is normal. *The estimated ejection fraction is 55-60%. *The right ventricular global systolic function is normal. *No atrial septal defected is demonstrated by agitated saline contrast. *There is no evidence of aortic regurgitation. *There is trace of mitral regurgitation. *There is trace tricuspid regurgitation. *The right ventricular systolic pressure is calculated at 25 mmHg. *There is trace pulmonic regurgitation. Findings Left Ventricle: The left ventricular chamber size is normal. There is no left ventricular hypertrophy. Global left ventricular wall motion and contractility are within normal limits. Global left ventricular systolic function is normal. The estimated ejection fraction is 55-60%. There is an E to A reversal in the mitral valve flow pattern suggestive of diastolic dysfunction. Left Atrium: The left atrial chamber size is normal. Right Ventricle: The right ventricle is slightly dilated. The right ventricular global systolic function is normal. Right Atrium: The right atrial cavity size is normal. No atrial septal defected is demonstrated by agitated saline contrast. Aortic Valve: There is no evidence of aortic valve thickening. There is no evidence of aortic regurgitation. Mitral Valve: The mitral valve leaflets are mildly thickened. There is trace of mitral regurgitation. Tricuspid Valve: The tricuspid valve leaflets are normal. There is trace tricuspid regurgitation. The right ventricular systolic pressure is calculated at 25 mmHg. Pulmonic Valve: There is no evidence of pulmonic valve thickening. There is trace pulmonic regurgitation. Pericardium: There is no pericardial effusion. Aorta: The aorta appears normal. Venous: The inferior vena cava appears normal in size. There is a greater than 50% respiratory change in the inferior vena cava dimension. Measurements Chambers 2D Name Value Normal Range IVSd (2D) 0.93 cm (0.6 - 1.1) LVPWd (2D) 0.87 cm (0.6 - 1.1) LVIDd (2D) 4.43 cm (3.7 - 5.6) LVIDs (2D) 2.81 cm (2 - 3.8) LV FS (2D) 36.69 % - EF Teichholz (2D) 66.7 % - Ao root diameter (2D) 3.07 cm (2 - 3.7) Volumes/Mass Name Value Normal Range LA ESV SP 4CH (A/L) 42.3 ml - LA ESV SP 2CH (A/L) 60.27 ml - LA ESV BP (A/L) 54.4 ml - LA ESV BP (A/L) index 27.61 ml/m2 - LA ESV SP 4CH (MOD) 38.19 ml - LA ESV SP 2CH (MOD) 53.81 ml - LA ESV BP (MOD) 48.73 ml - LA ESV BP (MOD) index 24.73 ml/m2 - Diastolic/Systolic Function Name Value Normal Range MV E-wave Vmax 0.51 m/sec - MV deceleration time 255.2 msec - MV A-wave Vmax 0.56 m/sec - MV E:A ratio 0.91 ratio - Aortic Valve Name Value Normal Range AV Vmax 1.35 m/sec - AV VTI 27.47 cm - AV peak gradient 7.3 mmHg - AV mean gradient 4.36 mmHg - LVOT diameter 2.13 cm - LVOT Vmax 1.16 m/sec - LVOT VTI 21.62 cm - LVOT peak gradient 5.4 mmHg - LVOT mean gradient 2.49 mmHg - SV LVOT 77.11 ml - BEAU (continuity Vmax) 3.07 cm2 - BEAU (continuity VTI) 2.81 cm2 - Ascending Ao 2.83 cm - Tricuspid Valve Name Value Normal Range TR Vmax 2.36 m/sec - TR peak gradient 22 mmHg - RAP 3 mmHg - RVSP 25 mmHg - IVC diameter 1.85 cm (1.2 - 2.3) Pulmonic Valve/Qp:Qs Name Value Normal Range PV Vmax 0.98 m/sec - PV peak gradient 3.88 mmHg - MA end-diastolic Vmax 1.11 m/sec - PV acceleration time 98.95 msec - Iqbal/IV: Voiding Method Urinal Active Medications - Current Medications Current Medications: Generic Name Dose Route Start Last Admin Trade Name Freq PRN Reason Stop Dose Admin Acetaminophen 650 mg 09/08/20 12:23 09/19/20 23:30 Acetaminophen 325 Mg Tab PO 650 mg Q4H PRN Administration Pain, Mild (1-3) Bisacodyl 10 mg 09/08/20 12:23 Bisacodyl 10 Mg Rect Supp MA QDAY PRN Constipation Dexamethasone 4 mg 09/13/20 12:00 09/20/20 12:07 Dexamethasone 4 Mg/Ml Vial IV 4 mg Q6HR BUDDY Administration Levetiracetam 500 mg 09/11/20 22:00 09/20/20 09:37 Levetiracetam 500 Mg Tab PO 500 mg BID BUDDY Administration Magnesium Hydroxide 30 ml 09/08/20 12:23 Magnesium Hydroxide (Mom) Oral Liqd Udc PO Q4H PRN Constipation Metoclopramide HCl 10 mg 09/08/20 12:23 09/18/20 20:21 Metoclopramide 10 Mg Tab PO 10 mg Q6H PRN Administration Nausea And Vomiting Ondansetron HCl 4 mg 09/08/20 12:23 09/20/20 09:49 Ondansetron 4 Mg/2 Ml Inj IV 4 mg Q8H PRN Administration Nausea And Vomiting Promethazine HCl 25 mg 09/08/20 12:23 Promethazine 25 Mg Rect Supp MA Q6H PRN Nausea And Vomiting Sodium Chloride 10 ml 09/08/20 12:23 09/20/20 09:37 Sodium Chloride 0.9% 10 Ml Flush Syringe IV 10 ml PRN PRN Administration LINE FLUSH Temazepam 15 mg 09/17/20 21:29 09/17/20 23:09 Temazepam 15 Mg Cap PO 15 mg QHS PRN Administration Sleep Trimethoprim/Sulfamethoxazole 2 each 09/13/20 22:00 09/20/20 09:37 Sulfamethoxazole/Trimethoprim 800/160mg Ds Tab PO 2 each Q12HR BUDDY Administration Protocol Nutrition/Malnutrition Assess - Dietary Evaluation Nutrition/Malnutrition Findings: Nutrition Notes Start: 09/12/20 10:45 Freq: Status: Active Protocol: Document 09/15/20 10:36 (Rec: 09/15/20 10:37 [id number]) Nutrition Notes Need for Assessment generated from: LOS Initial or Follow up Brief Note Current Diagnosis Diabetes Other Pertinent Diagnosis HIV, Suspected CA Current Diet Mechanical Soft Subjective/Other Information Screen for LOS. Per chart, pt consuming 100% of meals. Nutrition Intervention Revisit per MD consult or patient Sign Off request:
--- NOTE | 2020-09-20 13:18 | Progress Note ---
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 Toxoplasma IgG is positive. 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 LP unable to be done by radiology due to difficult tap. #Intra-abdominal lymphadenopathy: Noted on CT abdomen and pelvis: Could be lymphoma versus HIV related versus possibility of disseminated MAC. It seems his abdominal lymph nodes are not accessible for CT-guided biopsy based on radiology note. #HIV/AIDS: Viral load 4.6 million, CD4=32. Not on treatment. Will initiate ART only once diagnosis of brain lesions is confirmed due to risk of IRIS. #Diabetes: tight glycemic control for best outcomes. Recs: -PO Bactrim converted to IV Bactrim due to nausea -It seems his abdominal lymph nodes were not accessible for CT-guided biopsy based on radiology note -Given positive toxoplasma serology, continue Bactrim and re-image on Friday - MRI brain with and without contrast, if no improvement is noted, patient would need transfer for a brain biopsy -F/U AFB blood culture, serum Crypto Ag -On steroids per oncology, consider taper Matias Tucker MD, FACP [facility] O: [phone] F: [phone] Subjective Date of service: 09/20/20 Principal diagnosis: Brain lesions Interval history: Reports nausea and vomiting secondary to medications. Afebrile. Objective - Exam Narrative Exam: Physical Exam: Constitutional: Alert, cooperative. No acute distress Head, Ears, Nose: Normocephalic, atraumatic. External ears, nose normal Eyes: Conjunctivae/corneas clear. No icterus. No ptosis. Neck: Supple, no meningeal signs Cardiovascular: S1, S2 normal. Respiratory: Good air entry, clear to auscultation bilaterally GI: Soft, non-tender; bowel sounds normal. No peritoneal signs Musculoskeletal: No pedal edema, no cyanosis. Skin: No rash or abscess Hem/Lymphatic: No palpable cervical or supraclavicular nodes. No lymphangitis Psych: Mood ok. Affect normal Neurological: Awake, alert, oriented. Dysarthria and right-sided weakness present - Constitutional Vitals: Vital Signs Temp Pulse Resp BP Pulse Ox 97.8 F 78 18 112/73 94 09/20/20 12:18 09/20/20 12:18 09/20/20 12:18 09/20/20 12:18 09/20/20 12:18 Temperature -Last 24 Hours Temperature 97.8 F Temperature 98.3 F Temperature 98.5 F Temperature 98.6 F Temperature 98.9 F Temperature 98.7 F - Labs CBC & Chem 7: 09/17/20 06:09 09/15/20 09:12
[2020-09-20] MEDS: WATER IV SCH ×2 (14:14→22:50)
[2020-09-20] MEDS: TMP IV SCH ×2 (14:14→22:50)
[2020-09-20] MEDS: SMX IV SCH ×2 (14:14→22:50)
[2020-09-20] MEDS: METOCLOPRAMIDE 10 MG TAB PO PRN (14:14)
[2020-09-20] MEDS: DEXTROSE 5% IV SCH ×2 (14:14→22:50)
[2020-09-20] MEDS: levETIRAcetam 500 MG/5 ML ORAL LIQD PO SCH (22:50)
[2020-09-21] MEDS: ACETAMINOPHEN 325 MG/10.15 ML ORAL LIQD UNIT DOSE PO PRN (01:54)
[2020-09-21] MEDS: WATER IV SCH ×3 (06:45→21:51)
[2020-09-21] MEDS: TMP IV SCH ×3 (06:45→21:51)
[2020-09-21] MEDS: DEXTROSE 5% IV SCH ×3 (06:45→21:51)
[2020-09-21] MEDS: SMX IV SCH ×3 (06:45→21:51)
[2020-09-21] MEDS: dexAMETHasone 4 MG/ML VIAL IV SCH (06:50)
[2020-09-21] MEDS: levETIRAcetam 500 MG/5 ML ORAL LIQD PO SCH ×2 (11:21→21:54)
[2020-09-21] MEDS: METOCLOPRAMIDE 10 MG TAB PO PRN (11:24)
[2020-09-21] MEDS: ONDANSETRON 4 MG/2 ML INJ IV PRN (14:23)
--- NOTE | 2020-09-21 14:55 | Progress Note ---
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 Toxoplasma IgG is positive. 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 LP unable to be done by radiology due to difficult tap. #Intra-abdominal lymphadenopathy: Noted on CT abdomen and pelvis: Could be lymphoma versus HIV related versus possibility of disseminated MAC. It seems his abdominal lymph nodes are not accessible for CT-guided biopsy based on radiology note. #HIV/AIDS: Viral load 4.6 million, CD4=32. Not on treatment. Will initiate ART only once diagnosis of brain lesions is confirmed due to risk of IRIS. #Diabetes: tight glycemic control for best outcomes. Recs: -continue IV Bactrim, empiric therapy -due to dysphagia, will give trial of Fluconazole in case of esophagitis -Given positive toxoplasma serology, continue Bactrim and re-image on Friday - MRI brain with and without contrast, if no improvement is noted, patient would need transfer for a brain biopsy -F/U AFB blood culture -On steroids per oncology, consider taper Matias Tucker MD, FACP [facility] O: [phone] F: [phone] Subjective Date of service: 09/21/20 Principal diagnosis: Brain lesions Interval history: Afebrile. Still having nausea and difficulty swallowing, ST at bedside, reports aspiration due to pharyngeal phase Objective - Exam Narrative Exam: Physical Exam: Constitutional: Alert, cooperative. No acute distress Head, Ears, Nose: Normocephalic, atraumatic. External ears, nose normal Eyes: Conjunctivae/corneas clear. No icterus. No ptosis. Neck: Supple, no meningeal signs Cardiovascular: S1, S2 normal. Respiratory: Good air entry, clear to auscultation bilaterally GI: Soft, non-tender; bowel sounds normal. No peritoneal signs Musculoskeletal: No pedal edema, no cyanosis. Skin: No rash or abscess Hem/Lymphatic: No palpable cervical or supraclavicular nodes. No lymphangitis Psych: Mood ok. Affect normal Neurological: Awake, alert, oriented. Dysarthria and right-sided weakness pres ent - Constitutional Vitals: Vital Signs Temp Pulse Resp BP Pulse Ox 98.9 F 80 18 115/75 100 09/21/20 08:58 09/21/20 10:00 09/21/20 10:00 09/21/20 08:58 09/21/20 10:00 Temperature -Last 24 Hours Temperature 98.9 F Temperature 98.0 F Temperature 98.7 F Temperature 98.1 F - Labs CBC & Chem 7: 09/17/20 06:09 09/15/20 09:12
--- NOTE | 2020-09-21 16:57 | Progress Note ---
Assessment and Plan 49 YO Male with DM presents to ED for evaluation of a headache as well as drooling, slurred speech, and right arm and leg weakness. The patient was seen and evaluated in the emergency department and admitted for possible CVA work up. -- CVA (cerebral vascular accident), ruled out with negative brain MRI --Cerebral metastasis vs toxoplasmosis ?? MRI brain showed 2 regions of vasogenic edema in the left frontal lobe and right parietal lobe. 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 CT thorax showed no focus for malignancy CT abdomen pelvis showed diffuse lymphadenopathy -suggestive of possible lymphoma vs lymhadenopathy related to HIV or toxoplasmosis, consulted hematology and ID Neurology recommended IV Decadron -cont tapering dose Patient also started on empirically Bactrim to treat for toxoplasmosis --HIV, when asked if he has high risk for HIV he then stated that he was told that he is positive for HIV about 4 days ago prior to this admission ordered for repeat test, CD4 count, consulted ID --History of weight loss, consult dietary Likely related to his underlying medical condition -DM type 2, BG under control, SSI as needed -- DVT prophylaxis SCDs bilateral lower extremities while in bed, patient is ambulatory. Daily course: 09/09: Pending MRI. follow MRI and neuro recommendation 09/10: MRI brain without contrast result noted, possible metastatic cervical disease - order for MRI brain with contrast, follow clinically 09/11: MRI brain with contrast showed possible metastatic disease. CT abdomen pelvis showed diffuse lymphadenopathy. Hematology and oncology consulted. Neurology recommended IV Decadron - will hold for now till can r/o toxoplasmosis. Also consulted neurosurgeon Dr. Roman and ID for further recommendation. We will also start on Keppra prophylactically to prevent sei zure. 09/12: Noted ID recommendation. Stable lesion most likely lymphoma per ID. Wait for neurosurgery recommendation. CD4 count, serology for toxoplasma, RPR still pending. 09/13: Pending LP and toxoplasmosis serology. Pending CD4 count. Follow ID and neurology recommendation. 09/14: Plan for LP today but could not be performed by the radiologist as it was a difficult tap. Pending serology for toxoplasmosis, CD4 count. Patient started on Bactrim pending CD4 count.. Discussed with ID and recommending lymph node biopsy. Consulted IR for abdominal lymph node biopsy to get to confirm diagnosis. We will continue to follow 09/15: Patient pending lymph node biopsy. Coordination of care of patient was concerning to ID and I agree with such impression. Will discuss with case management to assist 09/16/20 patient complained of headache. Not feeling good. Waiting for lymph node biopsy. Absolute CD4 count 32 absolute CD3 count 161 absolute CD8 count 138. Waiting for toxoplasmosis antibodies and AB blood culture. Continue Bactrim double strength p.o. twice a day. Continue current treatment. Infectious disease follow-up. Case management evaluation to help the patient with treatment. Patient need to follow-up with [facility] as outpatient. 09/17/20 patient patient feels better except complaining of headache. Possible lymph node biopsy by interventional radiology in the morning. Absolute CD4 count 32 absolute CD3 count 161 absolute CD8 count 138. Waiting for t oxoplasmosis antibodies and AB blood culture. Continue Bactrim double strength p.o. twice a day. Continue current treatment. Infectious disease follow-up. Case management evaluation to help the patient with treatment. Patient need to follow-up with [facility] as outpatient. 09/18: Patient clinically stable no blurry vision no headache this morning. Speech is unchanged. Still awaiting biopsy. I have called radiology and try to find out the status on this procedure. I have also discussed with ID to see if this can be arranged outpatient as patient is currently in shelter if we are unable to do this here. Otherwise patient will need to be transferred 09/19: Continue empiric Bactrim. Apparently, abdominal lymph nodes are not accessible for CT-guided biopsy per radiology. Patient has toxoplasma IgG that is positive. ID would like to reimage with MRI brain with and without contrast to further delineate/determine need for brain biopsy. Follow-up AFB culture 09/20: Continue empiric Bactrim. Patient with follow-up MRI Friday to further delineate/determine need for brain biopsy. Follow-up AFB culture 09/21: Patient c/o severe nausea and vomiting, adjust med today, taper steroid. wait for MRI brain to be done. If no improvement on MRI brain than prior study will need to transfer the patient for possible brain biopsy. Subjective Date of service: 09/21/20 Principal diagnosis: Brain lesions Interval history: Patient seen and examined. Medical records and medication list reviewed. No acute event overnight noted by the RN. Patient complains of nausea and vomiting Discussed plan of care at bedside with patient. Objective - Exam Narrative Exam: GENERAL: well-developed -[place] male lying on bed appeared to be in no discomfort. HEENT: Normocephalic. Atraumatic. No conjunctival congestion or icterus. Patient has moist mucous membranes. NECK: Supple. Trachea midline. CHEST/LUNGS: Clear to auscultated bilaterally, breathing nonlabored. No wheezes crackles or rhonchi. HEART/CARDIOVASCULAR: Regular in rate and rhythm. S1 and S2 positive. ABDOMEN: Abdomen is soft, nontender. Patient has normal bowel sounds. SKIN: There is no rash. Warm and dry. NEURO: No focal motor deficit. Follows command. Patient has staggering speech MUSCULOSKELETAL: No joint effusion or tenderness. EXTRIMITY: No edema, no cyanosis or clubbing. PSYCH: Cooperative. - Constitutional Vitals: Vital Signs - 12hr 09/21/20 09/21/20 09/21/20 05:06 08:58 10:00 Temperature 98.0 F 98.9 F Pulse Rate 72 66 63 Pulse Rate [ 80 Left Radial] Pulse Rate [ 80 Right Radial] Respiratory 20 16 18 Rate Blood Pressure 92/58 115/75 O2 Sat by Pulse 95 99 100 Oximetry - Labs CBC & Chem 7: 09/17/20 06:09 09/15/20 09:12 HEART Score - HEART Score Troponin: Troponin T < 0.010 ng/mL (0.00-0.029) 09/08/20 09:15
--- NOTE | 2020-09-21 17:22 | Magnetic Resonance Report ---
NONENHANCED AND CONTRAST-ENHANCED MR SCAN OF THE BRAIN: INDICATION / CLINICAL INFORMATION: brain lesions, HIV. CAPSULE FILLER lymphoma v/s toxo. TECHNIQUE: Multiplanar, multisequence MR images of the brain obtained. COMPARISON: MR scan of the brain from 09/11/2020 and 09/09/2020 FINDINGS: BRAIN / INTRACRANIAL CONTENTS: 1. Left frontal lobe lesion: Enhancing lesion in the lateral left precentral gyrus is smaller now com pared to the last CT scan. It is decreased from 8 mm to 5 mm. Surrounding vasogenic edema remains unc hanged. 2. Right parietal lobe lesion: This lesion is also smaller now; enhancement has decreased; vasogenic edema has also decreased. In the previous MRI contrast enhanced series, eccentric target sign is seen in both these lesions. Th is finding has been described to be suggestive of toxoplasmosis graft. No new enhancing lesion or new focal lesion with vasogenic edema seen. 4. Periventricular and deep hemispheric white matter are normal. CRANIOCERVICAL JUNCTION: No significant abnormality. VASCULAR FLOW-VOIDS: No significant abnormality. ORBITS: No significant abnormality of visualized orbits. SINUSES / MASTOIDS: Mucosal thickening in the ethmoid air cells and maxillary sinus is unchanged; muc osal thickening in the right sphenoid sinus has decreased ADDITIONAL FINDINGS: None. IMPRESSION: Decrease in the size of the 2 enhancing lesions in the brain; vasogenic edema surrounding the left fr ontal lobe lesion unchanged; "eccentric target sign" more suggestive of toxoplasmosis Signer Name: Fam Ellis MD Signed: 09/21/2020 5:18 PM Workstation Name: [id number]
[2020-09-21] MEDS: FLUCONAZOLE 200 MG 200 MG/100 ML BAG IV SCH (18:52)
[2020-09-21] MEDS: DEXAMETHASONE 2 MG TAB PO SCH (21:53)
[2020-09-22] MEDS: ONDANSETRON 4 MG/2 ML INJ IV PRN (01:39)
[2020-09-22] MEDS: TMP IV SCH ×3 (06:37→15:51)
[2020-09-22] MEDS: WATER IV SCH ×3 (06:37→15:51)
[2020-09-22] MEDS: SMX IV SCH ×3 (06:37→15:51)
[2020-09-22] MEDS: DEXTROSE 5% IV SCH ×3 (06:37→15:51)
[2020-09-22] MEDS: levETIRAcetam 500 MG/5 ML ORAL LIQD PO SCH (09:58)
[2020-09-22] MEDS: DEXAMETHASONE 2 MG TAB PO SCH ×2 (09:58→21:21)
[2020-09-22] MEDS ORDERED: dexAMETHasone 4 MG/ML VIAL IV SCH (10:00)
--- NOTE | 2020-09-22 12:10 | Progress Note ---
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 Toxoplasma IgG is positive. Ddx toxoplasmosis v/s MACHINE ASSISTANT lymphoma. LP unable to be done by radiology due to difficult tap. Repeat MRI brain with and without contrast on 09/21/2020 shows dec rease in the size of 2 enhancing lesions in the brain, vasogenic edema seems to be unchanged, overall as per radiology, findings more suggestive of toxoplasmosis. #Intra-abdominal lymphadenopathy: Noted on CT abdomen and pelvis: Could be lymphoma versus HIV related versus possibility of disseminated MAC. It seems his abdominal lymph nodes are not accessible for CT-guided biopsy based on radiology note. #HIV/AIDS: Viral load 4.6 million, CD4=32. Not on treatment. Since MACHINE ASSISTANT lesions seem to be from toxoplasmosis, will start ART. #Diabetes: tight glycemic control for best outcomes. Recs: -continue IV Bactrim, as empiric therapy for MACHINE ASSISTANT toxoplasmosis -continue Fluconazole -F/U AFB blood culture -HIV genotype ordered -We will start antiretroviral therapy today: Tenofovir, emtricitabine, dolutegravir -Once patient is tolerating above well, can start discharge planning, will need outpatient MRI in another 4 weeks -Can start tapering steroids -monitor for the next few days due to risk of IRIS Matias Tucker MD, FACP [facility] ([facility] O: [phone] F: [phone] Subjective Date of service: 09/22/20 Principal diagnosis: Brain lesions Interval history: Afebrile. No new complaints. Objective - Exam Narrative Exam: Physical Exam: Constitutional: Alert, cooperative. No acute distress Head, Ears, Nose: Normocephalic, atraumatic. External ears, nose normal Eyes: Conjunctivae/corneas clear. No icterus. No ptosis. Neck: Supple, no meningeal signs Cardiovascular: S1, S2 normal. Respiratory: Good air entry, clear to auscultation bilaterally GI: Soft, non-tender; bowel sounds normal. No peritoneal signs Musculoskeletal: No pedal edema, no cyanosis. Skin: No rash or abscess Hem/Lymphatic: No palpable cervical or supraclavicular nodes. No lymphangitis Psych: Mood ok. Affect normal Neurological: Awake, alert, oriented. Dysarthria and right-sided weakness present - Constitutional Vitals: Vital Signs Temp Pulse Resp BP Pulse Ox 98.8 F 67 20 100/61 99 09/22/20 08:52 09/22/20 10:00 09/22/20 04:08 09/22/20 08:52 09/22/20 08:52 Temperature -Last 24 Hours Temperature 98.8 F Temperature 99.1 F Temperature 98.0 F Temperature 98.4 F - Labs CBC & Chem 7: 09/17/20 06:09 09/15/20 09:12
[2020-09-22] MEDS ORDERED: EMTRICITABINE 200 MG, TENOFOVIR 300 MG PO SCH (13:00)
--- NOTE | 2020-09-22 14:07 | Progress Note ---
Assessment and Plan 49 YO Male with DM presents to ED for evaluation of a headache as well as drooling, slurred speech, and right arm and leg weakness. The patient was seen and evaluated in the emergency department and admitted for possible CVA work up. -- CVA (cerebral vascular accident), ruled out with negative brain MRI --Cerebral metastasis vs toxoplasmosis ?? MRI brain showed 2 regions of vasogenic edema in the left frontal lobe and right parietal lobe. 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 CT thorax showed no focus for malignancy CT abdomen pelvis showed diffuse lymphadenopathy -suggestive of possible lymphoma vs lymhadenopathy related to HIV or toxoplasmosis, consulted hematology and ID Neurology recommended IV Decadron -cont tapering dose Patient also started on empirically Bactrim to treat for toxoplasmosis --HIV, when asked if he has high risk for HIV he then stated that he was told that he is positive for HIV about 4 days ago prior to this admission ordered for repeat test, CD4 count, consulted ID --History of weight loss, consult dietary Likely related to his underlying medical condition -DM type 2, BG under control, SSI as needed -- DVT prophylaxis SCDs bilateral lower extremities while in bed, patient is ambulatory. Daily course: 09/09: Pending MRI. follow MRI and neuro recommendation 09/10: MRI brain without contrast result noted, possible metastatic cervical disease - order for MRI brain with contrast, follow clinically 09/11: MRI brain with contrast showed possible metastatic disease. CT abdomen pelvis showed diffuse lymphadenopathy. Hematology and oncology consulted. Neurology recommended IV Decadron - will hold for now till can r/o toxoplasmosis. Also consulted neurosurgeon Dr. Roman and ID for further recommendation. We will also start on Keppra prophylactically to prevent sei zure. 09/12: Noted ID recommendation. Stable lesion most likely lymphoma per ID. Wait for neurosurgery recommendation. CD4 count, serology for toxoplasma, RPR still pending. 09/13: Pending LP and toxoplasmosis serology. Pending CD4 count. Follow ID and neurology recommendation. 09/14: Plan for LP today but could not be performed by the radiologist as it was a difficult tap. Pending serology for toxoplasmosis, CD4 count. Patient started on Bactrim pending CD4 count.. Discussed with ID and recommending lymph node biopsy. Consulted IR for abdominal lymph node biopsy to get to confirm diagnosis. We will continue to follow 09/15: Patient pending lymph node biopsy. Coordination of care of patient was concerning to ID and I agree with such impression. Will discuss with case management to assist 09/16/20 patient complained of headache. Not feeling good. Waiting for lymph node biopsy. Absolute CD4 count 32 absolute CD3 count 161 absolute CD8 count 138. Waiting for toxoplasmosis antibodies and AB blood culture. Continue Bactrim double strength p.o. twice a day. Continue current treatment. Infectious disease follow-up. Case management evaluation to help the patient with treatment. Patient need to follow-up with [facility] as outpatient. 09/17/20 patient patient feels better except complaining of headache. Possible lymph node biopsy by interventional radiology in the morning. Absolute CD4 count 32 absolute CD3 count 161 absolute CD8 count 138. Waiting for t oxoplasmosis antibodies and AB blood culture. Continue Bactrim double strength p.o. twice a day. Continue current treatment. Infectious disease follow-up. Case management evaluation to help the patient with treatment. Patient need to follow-up with [facility] as outpatient. 09/18: Patient clinically stable no blurry vision no headache this morning. Speech is unchanged. Still awaiting biopsy. I have called radiology and try to find out the status on this procedure. I have also discussed with ID to see if this can be arranged outpatient as [facility] in [facility] if we are unable to do this here. Otherwise patient will need to be transferred 09/19: Continue empiric Bactrim. Apparently, abdominal lymph nodes are not accessible for CT-guided biopsy per radiology. Patient has toxoplasma IgG that is positive. ID would like to reimage with MRI brain with and without contrast to further delineate/determine need for brain biopsy. Follow-up AFB culture 09/20: Continue empiric Bactrim. Patient with follow-up MRI Friday to further delineate/determine need for brain biopsy. Follow-up AFB culture 09/21: Patient c/o severe nausea and vomiting, adjust med today, taper steroid. wait for MRI brain to be done. If no improvement on MRI brain than prior study will need to transfer the patient for possible brain biopsy. 09/22; MRI yesterday showed improvement of the brain lesion. ID recommended to continue Bactrim IV for now to treat toxoplasmosis. Also initiated on ARV from today. Plan to monitor the patient for next few days for the risks of IRIS. Discussed with ID and recommended for possible discharge early next week. Patient would need a repeat MRI as outpatient in 4 weeks Subjective Date of service: 09/22/20 Principal diagnosis: Brain lesions Interval history: Patient seen and examined. Medical records and medication list reviewed. No acute event overnight noted by the RN. Patient still has nausea today but no vomiting Discussed plan of care at bedside with patient. Objective - Exam Narrative Exam: GENERAL: well-developed -[place] male lying on bed appeared to be in no discomfort. HEENT: Normocephalic. Atraumatic. No conjunctival congestion or icterus. Patient has moist mucous membranes. NECK: Supple. Trachea midline. CHEST/LUNGS: Clear to auscultated bilaterally, breathing nonlabored. No wheezes crackles or rhonchi. HEART/CARDIOVASCULAR: Regular in rate and rhythm. S1 and S2 positive. ABDOMEN: Abdomen is soft, nontender. Patient has normal bowel sounds. SKIN: There is no rash. Warm and dry. NEURO: No focal motor deficit. Follows command. Patient has staggering speech MUSCULOSKELETAL: No joint effusion or tenderness. EXTRIMITY: No edema, no cyanosis or clubbing. PSYCH: Cooperative. - Constitutional Vitals: Vital Signs - 12hr 09/22/20 09/22/20 09/22/20 04:08 08:52 10:00 Temperature 99.1 F 98.8 F Pulse Rate 71 72 67 Respiratory 20 Rate Blood Pressure 109/69 100/61 O2 Sat by Pulse 90 99 Oximetry 09/22/20 13:03 Temperature 98.2 F Pulse Rate 74 Respiratory Rate Blood Pressure 98/63 O2 Sat by Pulse 87 Oximetry - Labs CBC & Chem 7: 09/17/20 06:09 09/15/20 09:12 HEART Score - HEART Score Troponin: Troponin T < 0.010 ng/mL (0.00-0.029) 09/08/20 09:15
[2020-09-22] MEDS: EMTRICITABINE 200 MG CAP PO SCH (14:19)
[2020-09-22] MEDS: DOLUTEGRAVIR 50 MG TAB PO SCH (14:19)
[2020-09-22] MEDS: TENOFOVIR 300 MG TAB PO SCH (14:19)
[2020-09-22] MEDS: FLUCONAZOLE 200 MG 200 MG/100 ML BAG IV SCH ×3 (14:20→15:52)
[2020-09-22] MEDS: METOCLOPRAMIDE 10 MG/2 ML INJ IV SCH ×2 (15:53→21:17)
[2020-09-23] MEDS: WATER IV SCH ×4 (01:45→21:32)
[2020-09-23] MEDS: TMP IV SCH ×4 (01:45→21:32)
[2020-09-23] MEDS: SMX IV SCH ×4 (01:45→21:32)
[2020-09-23] MEDS: DEXTROSE 5% IV SCH ×4 (01:45→21:32)
[2020-09-23] MEDS: levETIRAcetam 500 MG/5 ML ORAL LIQD PO SCH ×3 (01:46→21:32)
[2020-09-23] MEDS ORDERED: SODIUM CHLORIDE 0.9% 250ML 250 ML IV ONE (04:28)
[2020-09-23] MEDS: ONDANSETRON 4 MG/2 ML INJ IV PRN ×2 (06:43→15:17)
[2020-09-23] MEDS: METOCLOPRAMIDE 10 MG/2 ML INJ IV SCH ×4 (07:30→21:24)
[2020-09-23] MEDS: DEXAMETHASONE 2 MG TAB PO SCH ×2 (10:15→21:32)
[2020-09-23] MEDS: TENOFOVIR 300 MG TAB PO SCH (10:15)
[2020-09-23] MEDS: DOLUTEGRAVIR 50 MG TAB PO SCH (10:16)
[2020-09-23] MEDS: EMTRICITABINE 200 MG CAP PO SCH (10:16)
--- NOTE | 2020-09-23 12:23 | Progress Note ---
Assessment and Plan 49 YO Male with DM presents to ED for evaluation of a headache as well as drooling, slurred speech, and right arm and leg weakness. The patient was seen and evaluated in the emergency department and admitted for possible CVA work up. -- CVA (cerebral vascular accident), ruled out with negative brain MRI --Cerebral toxoplasmosis ?? MRI brain 09/09 showed 2 regions of vasogenic edema in the left frontal lobe and right parietal lobe. 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 CT thorax showed no focus for malignancy CT abdomen pelvis showed diffuse lymphadenopathy -suggestive of possible lymphoma vs lymhadenopathy related to HIV or toxoplasmosis, consulted hematology and ID; high suspicion for HIV and toxoplasmosis related lymphadenopathy than lymphoma MRI brain w contrast on 09/21 suggested improving vasogenic edema/signs of brain lesion Neurology recommended IV Decadron -cont tapering dose Patient also started on empirically Bactrim to treat for toxoplasmosis --HIV, when asked if he has high risk for HIV he then stated that he was told that he is positive for HIV about 4 days ago prior to this admission ordered for repeat test, CD4 count, consulted ID Started on ARV since 09/22/20 --History of weight loss, consult dietary Likely related to his underlying medical condition -DM type 2, BG under control, SSI as needed -- DVT prophylaxis SCDs bilateral lower extremities while in bed, patient is ambulatory. Daily course: 09/09: Pending MRI. follow MRI and neuro recommendation 09/10: MRI brain without contrast result noted, possible metastatic cervical disease - order for MRI brain with contrast, follow clinically 09/11: MRI brain with contrast showed possible metastatic disease. CT abdomen pelvis showed diffuse lymphadenopathy. Hematology and oncology consulted. Neurology recommended IV Decadron - will hold for now till can r/o toxoplasmosis. Also consulted neurosurgeon Dr. Roman and ID for further recommendation. We will also start on Keppra prophylactically to prevent seizure. 09/12: Noted ID recommendation. Stable lesion most likely lymphoma per ID. Wait for neurosurgery recommendation. CD4 count, serology for toxoplasma, RPR still pending. 09/13: Pending LP and toxoplasmosis serology. Pending CD4 count. Follow ID and neurology recommendation. 09/14: Plan for LP today but could not be performed by the radiologist as it was a difficult tap. Pending serology for toxoplasmosis, CD4 count. Patient started on Bactrim pending CD4 count.. Discussed with ID and recommending lymph node biopsy. Consulted IR for abdominal lymph node biopsy to get to confirm diagnosis. We will continue to follow 09/15: Patient pending lymph node biopsy. Coordination of care of patient was concerning to ID and I agree with such impression. Will discuss with case management to assist 09/16/20 patient complained of headache. Not feeling good. Waiting for lymph node biopsy. Absolute CD4 count 32 absolute CD3 count 161 absolute CD8 count 138. Waiting for toxoplasmosis antibodies and AB blood culture. Continue Bactrim double strength p.o. twice a day. Continue current treatment. Infectious disease follow-up. Case management evaluation to help the patient with treatment. Patient need to follow-up with [facility] as outpatient. 09/17/20 patient patient feels better except complaining of headache. Possible lymph node biopsy by interventional radiology in the morning. Absolute CD4 count 32 absolute CD3 count 161 absolute CD8 count 138. Waiting for toxoplasmos is antibodies and AB blood culture. Continue Bactrim double strength p.o. twice a day. Continue current treatment. Infectious disease follow-up. Case management evaluation to help the patient with treatment. Patient need to follow-up with [facility] as outpatient. 09/18: Patient clinically stable no blurry vision no headache this morning. Speech is unchanged. Still awaiting biopsy. I have called radiology and try to find out the status on this procedure. I have also discussed with ID to see if this can be arranged outpatient as patient is currently in retirement if we are unable to do this here. Otherwise patient will need to be transferred 09/19: Continue empiric Bactrim. Apparently, abdominal lymph nodes are not accessible for CT-guided biopsy per radiology. Patient has toxoplasma IgG that is positive. ID would like to reimage with MRI brain with and without contrast to further delineate/determine need for brain biopsy. Follow-up AFB culture 09/20: Continue empiric Bactrim. Patient with follow-up MRI Friday to further delineate/determine need for brain biopsy. Follow-up AFB culture 09/21: Patient c/o severe nausea and vomiting, adjust med today, taper steroid. wait for MRI brain to be done. If no improvement on MRI brain than prior study will need to transfer the patient for possible brain biopsy. 09/22; MRI yesterday showed improvement of the brain lesion. ID recommended to continue Bactrim IV for now to treat toxoplasmosis. Also initiated on ARV from today. Plan to monitor the patient for next few days for the risks of IRIS. Discussed with ID and recommended for possible discharge early next week. Patient would need a repeat MRI as outpatient in 4 weeks 6: Continue IV Bactrim and ARV. Continue to monitor the patient. If clinically stable possible DC early next week per ID recommendation Subjective Date of service: 09/23/20 Principal diagnosis: Brain lesions Interval history: Patient seen and examined. Medical records and medication list reviewed. No acute event overnight noted by the RN. Patient still has nausea today but no vomiting Discussed plan of care at bedside with patient. Objective - Exam Narrative Exam: GENERAL: well-developed -[place] male lying on bed appeared to be in no discomfort. HEENT: Normocephalic. Atraumatic. No conjunctival congestion or icterus. Patient has moist mucous membranes. NECK: Supple. Trachea midline. CHEST/LUNGS: Clear to auscultated bilaterally, breathing nonlabored. No wheezes crackles or rhonchi. HEART/CARDIOVASCULAR: Regular in rate and rhythm. S1 and S2 positive. ABDOMEN: Abdomen is soft, nontender. Patient has normal bowel sounds. SKIN: There is no rash. Warm and dry. NEURO: No focal motor deficit. Follows command. Patient has staggering speech MUSCULOSKELETAL: No joint effusion or tenderness. EXTRIMITY: No edema, no cyanosis or clubbing. PSYCH: Cooperative. - Constitutional Vitals: Vital Signs - 12hr 09/23/20 09/23/20 05:00 10:00 Temperature 97.8 F Pulse Rate 80 76 Respiratory 18 Rate Blood Pressure 99/68 O2 Sat by Pulse 94 Oximetry - Labs CBC & Chem 7: 09/24/20 07:23 09/24/20 07:23 HEART Score - HEART Score Troponin: Troponin T < 0.010 ng/mL (0.00-0.029) 09/08/20 09:15
[2020-09-23] MEDS: FLUCONAZOLE 200 MG 200 MG/100 ML BAG IV SCH (14:47)
[2020-09-24] MEDS: WATER IV SCH ×3 (06:36→22:38)
[2020-09-24] MEDS: DEXTROSE 5% IV SCH ×3 (06:36→22:38)
[2020-09-24] MEDS: TMP IV SCH ×3 (06:36→22:38)
[2020-09-24] MEDS: SMX IV SCH ×3 (06:36→22:38)
[2020-09-24] MEDS: METOCLOPRAMIDE 10 MG/2 ML INJ IV SCH ×4 (07:32→22:38)
[2020-09-24 08:12] LABS: Basophils % (Auto) 0.2 % (0.0-1.8); Eosinophils # (Auto) 0.1 K/mm3 (0.0-0.4); Eosinophils % (Auto) 1.2 % (0.0-4.3); Hemoglobin 14.9 gm/dl (11.8-15.2); Lymphocytes # (Auto) 0.3 K/mm3 (1.2-5.4); Lymphocytes % (Auto) 6.9 % (13.4-35.0); Mean Corpuscular HGB Conc 33 % (32-34); Mean Corpuscular Volume 81 fl (84-94); Monocytes # (Auto) 0.6 K/mm3 (0.0-0.8); Monocytes % (Auto) 13.8 % (0.0-7.3); Platelet Count 310 K/mm3 (140-440); Red Blood Count 5.56 M/mm3 (3.65-5.03); Red Cell Distribution Width 14.3 % (13.2-15.2)
[2020-09-24 08:23] LABS: BUN/Creatinine Ratio 21; Blood Urea Nitrogen 21 mg/dL (9-20); Calcium 7.9 mg/dL (8.4-10.2); Hemolysis Index 16
[2020-09-24] MEDS: TENOFOVIR 300 MG TAB PO SCH (10:11)
[2020-09-24] MEDS: EMTRICITABINE 200 MG CAP PO SCH (10:11)
[2020-09-24] MEDS: DEXAMETHASONE 2 MG TAB PO SCH ×2 (10:11→22:38)
[2020-09-24] MEDS: DOLUTEGRAVIR 50 MG TAB PO SCH (10:11)
[2020-09-24] MEDS: levETIRAcetam 500 MG/5 ML ORAL LIQD PO SCH ×2 (10:12→22:36)
[2020-09-24] MEDS: ONDANSETRON 4 MG/2 ML INJ IV PRN (10:15)
--- NOTE | 2020-09-24 13:49 | Progress Note ---
Assessment and Plan 49 YO Male with DM presents to ED for evaluation of a headache as well as drooling, slurred speech, and right arm and leg weakness. The patient was seen and evaluated in the emergency department and admitted for possible CVA work up. -- CVA (cerebral vascular accident), ruled out with negative brain MRI --Cerebral toxoplasmosis ?? MRI brain 09/09 showed 2 regions of vasogenic edema in the left frontal lobe and right parietal lobe. 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 CT thorax showed no focus for malignancy CT abdomen pelvis showed diffuse lymphadenopathy -suggestive of possible lymphoma vs lymhadenopathy related to HIV or toxoplasmosis, consulted hematology and ID; high suspicion for HIV and toxoplasmosis related lymphadenopathy than lymphoma MRI brain w contrast on 09/21 suggested improving vasogenic edema/signs of brain lesion Neurology recommended IV Decadron -cont tapering dose Patient also started on empirically Bactrim to treat for toxoplasmosis --HIV, when asked if he has high risk for HIV he then stated that he was told that he is positive for HIV about 4 days ago prior to this admission ordered for repeat test, CD4 count, consulted ID Started on ARV since 09/22/20 --History of weight loss, consult dietary Likely related to his underlying medical condition -DM type 2, BG under control, SSI as needed -- DVT prophylaxis SCDs bilateral lower extremities while in bed, patient is ambulatory. Daily course: 09/09: Pending MRI. follow MRI and neuro recommendation 09/10: MRI brain without contrast result noted, possible metastatic cervical disease - order for MRI brain with contrast, follow clinically 09/11: MRI brain with contrast showed possible metastatic disease. CT abdomen pelvis showed diffuse lymphadenopathy. Hematology and oncology consulted. Neurology recommended IV Decadron - will hold for now till can r/o toxoplasmosis. Also consulted neurosurgeon Dr. Roman and ID for further recommendation. We will also start on Keppra prophylactically to prevent seizure. 09/12: Noted ID recommendation. Stable lesion most likely lymphoma per ID. Wait for neurosurgery recommendation. CD4 count, serology for toxoplasma, RPR still pending. 09/13: Pending LP and toxoplasmosis serology. Pending CD4 count. Follow ID and neurology recommendation. 09/14: Plan for LP today but could not be performed by the radiologist as it was a difficult tap. Pending serology for toxoplasmosis, CD4 count. Patient started on Bactrim pending CD4 count.. Discussed with ID and recommending lymph node biopsy. Consulted IR for abdominal lymph node biopsy to get to confirm diagnosis. We will continue to follow 09/15: Patient pending lymph node biopsy. Coordination of care of patient was concerning to ID and I agree with such impression. Will discuss with case management to assist 09/16/20 patient complained of headache. Not feeling good. Waiting for lymph node biopsy. Absolute CD4 count 32 absolute CD3 count 161 absolute CD8 count 138. Waiting for toxoplasmosis antibodies and AB blood culture. Continue Bactrim double strength p.o. twice a day. Continue current treatment. Infectious disease follow-up. Case management evaluation to help the patient with treatment. Patient need to follow-up with [facility] as outpatient. 09/17/20 patient patient feels better except complaining of headache. Possible lymph node biopsy by interventional radiology in the morning. Absolute CD4 count 32 absolute CD3 count 161 absolute CD8 count 138. Waiting for toxoplasmos is antibodies and AB blood culture. Continue Bactrim double strength p.o. twice a day. Continue current treatment. Infectious disease follow-up. Case management evaluation to help the patient with treatment. Patient need to follow-up with [facility] as outpatient. 09/18: Patient clinically stable no blurry vision no headache this morning. Speech is unchanged. Still awaiting biopsy. I have called radiology and try to find out the status on this procedure. I have also discussed with ID to see if this can be arranged outpatient as [facility] is currently in [facility] if we are unable to do this here. Otherwise patient will need to be transferred 09/19: Continue empiric Bactrim. Apparently, abdominal lymph nodes are not accessible for CT-guided biopsy per radiology. Patient has toxoplasma IgG that is positive. ID would like to reimage with MRI brain with and without contrast to further delineate/determine need for brain biopsy. Follow-up AFB culture 09/20: Continue empiric Bactrim. Patient with follow-up MRI Friday to further delineate/determine need for brain biopsy. Follow-up AFB culture 09/21: Patient c/o severe nausea and vomiting, adjust med today, taper steroid. wait for MRI brain to be done. If no improvement on MRI brain than prior study will need to transfer the patient for possible brain biopsy. 09/22; MRI yesterday showed improvement of the brain lesion. ID recommended to continue Bactrim IV for now to treat toxoplasmosis. Also initiated on ARV from today. Plan to monitor the patient for next few days for the risks of IRIS. Discussed with ID and recommended for possible discharge early next week. Patient would need a repeat MRI as outpatient in 4 weeks 09/23: Continue IV Bactrim and ARV. Continue to monitor the patient. If clinically stable possible DC early next week per ID recommendation 09/24: cont current mx, follow clinically Subjective Date of service: 09/24/20 Principal diagnosis: Brain lesions Interval history: Patient seen and examined. Medical records and medication list reviewed. No acute event overnight noted by the RN. Patient tolerating diet better now Discussed plan of care at bedside with patient. Objective - Exam Narrative Exam: GENERAL: well-developed -[place] male lying on bed appeared to be in no discomfort. HEENT: Normocephalic. Atraumatic. No conjunctival congestion or icterus. Patient has moist mucous membranes. NECK: Supple. Trachea midline. CHEST/LUNGS: Clear to auscultated bilaterally, breathing nonlabored. No wheezes crackles or rhonchi. HEART/CARDIOVASCULAR: Regular in rate and rhythm. S1 and S2 positive. ABDOMEN: Abdomen is soft, nontender. Patient has normal bowel sounds. SKIN: There is no rash. Warm and dry. NEURO: No focal motor deficit. Follows command. Patient has staggering speech MUSCULOSKELETAL: No joint effusion or tenderness. EXTRIMITY: No edema, no cyanosis or clubbing. PSYCH: Cooperative. - Constitutional Vitals: Vital Signs - 12hr 09/24/20 09/24/20 09/24/20 04:00 07:14 10:00 Temperature 98.3 F 98.3 F Pulse Rate 68 68 67 Respiratory 18 18 Rate Blood Pressure 112/71 Blood Pressure 90/59 [Left] O2 Sat by Pulse 96 94 Oximetry 09/24/20 11:01 Temperature 98.5 F Pulse Rate 77 Respiratory 18 Rate Blood Pressure 103/68 Blood Pressure [Left] O2 Sat by Pulse 95 Oximetry - Labs CBC & Chem 7: 09/24/20 07:23 09/24/20 07:23 Labs: Abnormal lab results 09/23/20 09/24/20 09/24/20 Range/Units 21:44 07:23 07:23 RBC 5.56 H (3.65-5.03) M/mm3 MCV 81 L (84-94) fl MCH 27 L (28-32) pg Lymph % (Auto) 6.9 L (13.4-35.0) % Branch % (Auto) 13.8 H (0.0-7.3) % Lymph # (Auto) 0.3 L (1.2-5.4) K/mm3 Seg Neutrophils % 77.9 H (40.0-70.0) % Sodium 133 L (137-145) mmol/L BUN 21 H (9-20) mg/dL POC Glucose 108 H (70-105) mg/dL Calcium 7.9 L (8.4-10.2) mg/dL HEART Score - HEART Score Troponin: Troponin T < 0.010 ng/mL (0.00-0.029) 09/08/20 09:15
[2020-09-24] MEDS: FLUCONAZOLE 200 MG 200 MG/100 ML BAG IV SCH ×2 (14:42→15:53)
[2020-09-25] MEDS: ACETAMINOPHEN 325 MG/10.15 ML ORAL LIQD UNIT DOSE PO PRN (03:20)
[2020-09-25] MEDS: TMP IV SCH (06:08)
[2020-09-25] MEDS: DEXTROSE 5% IV SCH (06:08)
[2020-09-25] MEDS: SMX IV SCH (06:08)
[2020-09-25] MEDS: WATER IV SCH (06:08)
[2020-09-25] MEDS: ONDANSETRON 4 MG/2 ML INJ IV PRN (06:28)
[2020-09-25] MEDS: METOCLOPRAMIDE 10 MG/2 ML INJ IV SCH ×5 (07:58→22:01)
[2020-09-25] MEDS: EMTRICITABINE 200 MG CAP PO SCH (10:23)
[2020-09-25] MEDS: DOLUTEGRAVIR 50 MG TAB PO SCH (10:23)
[2020-09-25] MEDS: TENOFOVIR 300 MG TAB PO SCH (10:23)
[2020-09-25] MEDS: DEXAMETHASONE 2 MG TAB PO SCH ×2 (10:23→21:59)
[2020-09-25] MEDS: levETIRAcetam 500 MG/5 ML ORAL LIQD PO SCH ×2 (10:23→21:59)
--- NOTE | 2020-09-25 15:27 | Progress Note ---
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 Toxoplasma IgG is positive. Ddx toxoplasmosis v/s HEALTHCARE ADMINISTRATIVE ASSISTANT lymphoma. LP unable to be done by radiology due to difficult tap. Repeat MRI brain with and without contrast on 09/21/2020 shows dec rease in the size of 2 enhancing lesions in the brain, vasogenic edema seems to be unchanged, overall as per radiology, findings more suggestive of toxoplasmosis. #Intra-abdominal lymphadenopathy: Noted on CT abdomen and pelvis: Could be lymphoma versus HIV related versus possibility of disseminated MAC. It seems his abdominal lymph nodes are not accessible for CT-guided biopsy based on radiology note. #HIV/AIDS: Viral load 4.6 million, CD4=32. Not on treatment. Since HEALTHCARE ADMINISTRATIVE ASSISTANT lesions seem to be from toxoplasmosis, will start ART. #Diabetes: tight glycemic control for best outcomes. Recs: -Bactrim switched to PO. Continue Bactrim DS 2 tabs BID for HEALTHCARE ADMINISTRATIVE ASSISTANT toxoplasmosis for at least another 2 months -Fluconazole switched to PO x 5 days -continue ART: Tenofovir, emtricitabine, dolutegravir, upon discharge, convert to PO Biktarvy 1 tab daily -F/U AFB blood culture, HIV genotype -Needs repeat outpatient MRI in another 4 weeks, if any worsening is noted, will need neurosurgery referral for brain biopsy -OK for discharge in 1-2 days -Follow up with [facility] physician at the [facility]-way. Can follow up with us at ID clinic as well if they can arrange transportation Matias Tucker MD, FACP [facility] ([facility] O: [phone] F: [phone] Subjective Date of service: 09/25/20 Principal diagnosis: Brain lesions Interval history: Afebrile. No new complaints. Feeling better overall. Objective - Exam Narrative Exam: Physical Exam: Constitutional: Alert, cooperative. No acute distress Head, Ears, Nose: Normocephalic, atraumatic. External ears, nose normal Eyes: Conjunctivae/corneas clear. No icterus. No ptosis. Neck: Supple, no meningeal signs Cardiovascular: S1, S2 normal. Respiratory: Good air entry, clear to auscultation bilaterally GI: Soft, non-tender; bowel sounds normal. No peritoneal signs Musculoskeletal: No pedal edema, no cyanosis. Skin: No rash or abscess Hem/Lymphatic: No palpable cervical or supraclavicular nodes. No lymphangitis Psych: Mood ok. Affect normal Neurological: Awake, alert, oriented. Dysarthria and right-sided weakness present - Constitutional Vitals: Vital Signs Temp Pulse Resp BP Pulse Ox 98.0 F 82 18 98/65 94 09/25/20 11:39 09/25/20 11:39 09/25/20 11:39 09/25/20 11:39 09/25/20 11:39 Temperature -Last 24 Hours Temperature 98.0 F Temperature 98.7 F Temperature 98.1 F Temperature 97.8 F - Labs CBC & Chem 7: 09/24/20 07:23 09/24/20 07:23
--- NOTE | 2020-09-25 16:37 | Progress Note ---
Assessment and Plan 49 YO Male with DM presents to ED for evaluation of a headache as well as drooling, slurred speech, and right arm and leg weakness. The patient was seen and evaluated in the emergency department and admitted for possible CVA work up. -- CVA (cerebral vascular accident), ruled out with negative brain MRI --Cerebral toxoplasmosis ?? MRI brain 09/09 showed 2 regions of vasogenic edema in the left frontal lobe and right parietal lobe. 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 CT thorax showed no focus for malignancy CT abdomen pelvis showed diffuse lymphadenopathy -suggestive of possible lymphoma vs lymhadenopathy related to HIV or toxoplasmosis, consulted hematology and ID; high suspicion for HIV and toxoplasmosis related lymphadenopathy than lymphoma MRI brain w contrast on 09/21 suggested improving vasogenic edema/signs of brain lesion Neurology recommended IV Decadron -cont tapering dose Patient also started on empirically Bactrim to treat for toxoplasmosis --HIV, when asked if he has high risk for HIV he then stated that he was told that he is positive for HIV about 4 days ago prior to this admission ordered for repeat test, CD4 count, consulted ID Started on ARV since 09/22/20 --History of weight loss, consult dietary Likely related to his underlying medical condition -DM type 2, BG under control, SSI as needed -- DVT prophylaxis SCDs bilateral lower extremities while in bed, patient is ambulatory. Daily course: 09/09: Pending MRI. follow MRI and neuro recommendation 09/10: MRI brain without contrast result noted, possible metastatic cervical disease - order for MRI brain with contrast, follow clinically 09/11: MRI brain with contrast showed possible metastatic disease. CT abdomen pelvis showed diffuse lymphadenopathy. Hematology and oncology consulted. Neurology recommended IV Decadron - will hold for now till can r/o toxoplasmosis. Also consulted neurosurgeon Dr. Roman and ID for further recommendation. We will also start on Keppra prophylactically to prevent seizure. 09/12: Noted ID recommendation. Stable lesion most likely lymphoma per ID. Wait for neurosurgery recommendation. CD4 count, serology for toxoplasma, RPR still pending. 09/13: Pending LP and toxoplasmosis serology. Pending CD4 count. Follow ID and neurology recommendation. 09/14: Plan for LP today but could not be performed by the radiologist as it was a difficult tap. Pending serology for toxoplasmosis, CD4 count. Patient started on Bactrim pending CD4 count.. Discussed with ID and recommending lymph node biopsy. Consulted IR for abdominal lymph node biopsy to get to confirm diagnosis. We will continue to follow 09/15: Patient pending lymph node biopsy. Coordination of care of patient was concerning to ID and I agree with such impression. Will discuss with case management to assist 09/16/20 patient complained of headache. Not feeling good. Waiting for lymph node biopsy. Absolute CD4 count 32 absolute CD3 count 161 absolute CD8 count 138. Waiting for toxoplasmosis antibodies and AB blood culture. Continue Bactrim double strength p.o. twice a day. Continue current treatment. Infectious disease follow-up. Case management evaluation to help the patient with treatment. Patient need to follow-up with [place] [facility] as outpatient. 09/17/20 patient patient feels better except complaining of headache. Possible lymph node biopsy by interventional radiology in the morning. Absolute CD4 count 32 absolute CD3 count 161 absolute CD8 count 138. Waiting for toxoplasmos is antibodies and AB blood culture. Continue Bactrim double strength p.o. twice a day. Continue current treatment. Infectious disease follow-up. Case management evaluation to help the patient with treatment. Patient need to follow-up with [facility] [facility] as outpatient. 09/18: Patient clinically stable no blurry vision no headache this morning. Speech is unchanged. Still awaiting biopsy. I have called radiology and try to find out the status on this procedure. I have also discussed with ID to see if this can be arranged outpatient as patient is currently in care home if we are unable to do this here. Otherwise patient will need to be transferred 09/19: Continue empiric Bactrim. Apparently, abdominal lymph nodes are not accessible for CT-guided biopsy per radiology. Patient has toxoplasma IgG that is positive. ID would like to reimage with MRI brain with and without contrast to further delineate/determine need for brain biopsy. Follow-up AFB culture 09/20: Continue empiric Bactrim. Patient with follow-up MRI Friday to further delineate/determine need for brain biopsy. Follow-up AFB culture 09/21: Patient c/o severe nausea and vomiting, adjust med today, taper steroid. wait for MRI brain to be done. If no improvement on MRI brain than prior study will need to transfer the patient for possible brain biopsy. 09/22; MRI yesterday showed improvement of the brain lesion. ID recommended to continue Bactrim IV for now to treat toxoplasmosis. Also initiated on ARV from today. Plan to monitor the patient for next few days for the risks of IRIS. Discussed with ID and recommended for possible discharge early next week. Patient would need a repeat MRI as outpatient in 4 weeks 09/23: Continue IV Bactrim and ARV. Continue to monitor the patient. If clinically stable possible DC early next week per ID recommendation 09/24: Cont current Mx, follow clinically. discharge planning when clears by ID 09/25: cont current Mx, possible d/c in 1-2 days when clears by ID. changed iv abx to po Subjective Date of service: 09/25/20 Principal diagnosis: Brain lesions Interval history: Patient seen and examined. Medical records and medication list reviewed. No acute event overnight noted by the RN. Patient tolerating diet better now Discussed plan of care at bedside with patient. Objective - Exam Narrative Exam: GENERAL: well-developed -[place] male lying on bed appeared to be in no discomfort. HEENT: Normocephalic. Atraumatic. No conjunctival congestion or icterus. Patient has moist mucous membranes. NECK: Supple. Trachea midline. CHEST/LUNGS: Clear to auscultated bilaterally, breathing nonlabored. No wheezes crackles or rhonchi. HEART/CARDIOVASCULAR: Regular in rate and rhythm. S1 and S2 positive. ABDOMEN: Abdomen is soft, nontender. Patient has normal bowel sounds. SKIN: There is no rash. Warm and dry. NEURO: No focal motor deficit. Follows command. Patient has staggering speech MUSCULOSKELETAL: No joint effusion or tenderness. EXTRIMITY: No edema, no cyanosis or clubbing. PSYCH: Cooperative. - Constitutional Vitals: Vital Signs - 12hr 09/25/20 09/25/20 09/25/20 07:44 10:00 11:39 Temperature 98.7 F 98.0 F Pulse Rate 78 82 82 Respiratory 18 18 Rate Blood Pressure 103/69 98/65 O2 Sat by Pulse 95 97 94 Oximetry - Labs CBC & Chem 7: 09/24/20 07:23 09/24/20 07:23 HEART Score - HEART Score Troponin: Troponin T < 0.010 ng/mL (0.00-0.029) 09/08/20 09:15
[2020-09-25] MEDS: SULFAMETHOXAZOLE/TRIMETHOPRIM 800/160MG DS TAB PO SCH ×2 (17:39→22:01)
[2020-09-25] MEDS: FLUCONAZOLE 200 MG TAB PO SCH (17:39)
[2020-09-26] MEDS: METOCLOPRAMIDE 10 MG/2 ML INJ IV SCH (08:41)
[2020-09-26] MEDS: DOLUTEGRAVIR 50 MG TAB PO SCH (10:02)
[2020-09-26] MEDS: EMTRICITABINE 200 MG CAP PO SCH (10:02)
[2020-09-26] MEDS: TENOFOVIR 300 MG TAB PO SCH (10:02)
[2020-09-26] MEDS: SULFAMETHOXAZOLE/TRIMETHOPRIM 800/160MG DS TAB PO SCH (10:02)
[2020-09-26] MEDS: FLUCONAZOLE 200 MG TAB PO SCH (10:02)
[2020-09-26] MEDS: levETIRAcetam 500 MG/5 ML ORAL LIQD PO SCH (10:02)
[2020-09-26] MEDS: DEXAMETHASONE 2 MG TAB PO SCH (10:02)
--- NOTE | 2020-09-26 12:19 | Discharge Summary ---
Providers - Providers Date of Admission: 09/08/20 10:56 Date of discharge: 09/26/20 Attending physician: TIKI ESCAMILLA 09/08/20 09:37 Speech Therapy Evaluation and Treat [CONS] Stat Reason For Exam: stroke 09/08/20 12:23 Occupational Therapy Evaluate and Treat [CONS] Routine Comment: Reason For Exam: Neuro deficits Physical Therapy Evaluation and Treat [CONS] Routine Comment: Reason For Exam: Neuro deficits 09/08/20 14:58 Speech Therapy Evaluation and Treat [CONS] Stat Reason For Exam: DROOL WITH ICECHIPS AND ONE TEASPOON OF WATER 09/09/20 12:56 Consult to Physician [CONS] Routine Comment: Consulting Provider: ANDREW MYERS Physician Instructions: Reason For Exam: CVA 09/11/20 10:31 Consult to Physician [CONS] Routine Comment: Consulting Provider: DEIRDRE MADRID Physician Instructions: Reason For Exam: possible metastatic disease 09/11/20 15:37 Consult to Physician [CONS] Routine Comment: Consulting Provider: MELODY LOBO II Physician Instructions: Reason For Exam: Cerebral metastasis/lymphoma 09/11/20 15:40 Consult to Dietitian/Nutrition [CONS] Routine Physician Instructions: Reason For Exam: Reason for Consult: Malnutrition 09/11/20 17:33 Consult to Physician [CONS] Routine Comment: Consulting Provider: LESLIE TANNER Physician Instructions: Reason For Exam: hiv Primary care physician: WIRER HELPER Hospitalization Condition: Fair Pertinent studies: Head CT carotid Doppler Brain MRI without contrast and with contrast Abdomen pelvis CT Chest CT Lumbar puncture 2D echocardiogram Hospital course: 49 YO Male with DM presents to ED for evaluation of a headache as well as drooling, slurred speech, and right arm and leg weakness. The patient was seen and evaluated in the emergency department and admitted for possible CVA work up. Daily course: 09/09: Pending MRI. follow MRI and neuro recommendation 09/10: MRI brain without contrast result noted, possible metastatic cervical disease - order for MRI brain with contrast, follow clinically 09/11: MRI brain with contrast showed possible metastatic disease. CT abdomen pelvis showed diffuse lymphadenopathy. Hematology and oncology consulted. Neurology recommended IV Decadron - will hold for now till can r/o toxoplasmosis. Also consulted neurosurgeon Dr. Roman and GLORIA for further recommendation. We will also start on Keppra prophylactically to prevent seizure. 09/12: Noted ID recommendation. Stable lesion most likely lymphoma per ID. Wait for neurosurgery recommendation. CD4 count, serology for toxoplasma, RPR still pending. 09/13: Pending LP and toxoplasmosis serology. Pending CD4 count. Follow ID and neurology recommendation. 09/14: Plan for LP today but could not be performed by the radiologist as it was a difficult tap. Pending serology for toxoplasmosis, CD4 count. Patient started on Bactrim pending CD4 count.. Discussed with ID and recommending lymph node biopsy. Consulted IR for abdominal lymph node biopsy to get to confirm diagnosis. We will continue to follow 09/15: Patient pending lymph node biopsy. Coordination of care of patient was concerning to ID and I agree with such impression. Will discuss with case management to assist 09/16/20 patient complained of headache. Not feeling good. Waiting for lymph node biopsy. Absolute CD4 count 32 absolute CD3 count 161 absolute CD8 count 138. Waiting for toxoplasmosis antibodies and AB blood culture. Continue Bactrim double strength p.o. twice a day. Continue current treatment. Infectious disease follow-up. Case management evaluation to help the patient with treatment. Patient need to follow-up with [place] [facility] as outpatient. 09/17/20 patient patient feels better except complaining of headache. Possible lymph node biopsy by interventional radiology in the morning. Absolute CD4 count 32 absolute CD3 count 161 absolute CD8 count 138. Waiting for toxoplasmosis antibodies and AB blood culture. Continue Bactrim double strength p.o. twice a day. Continue current treatment. Infectious disease follow-up. Case management evaluation to help the patient with treatment. Patient need to follow-up with [place] [facility] as outpatient. 09/18: Patient clinically stable no blurry vision no headache this morning. Speech is unchanged. Still awaiting biopsy. I have called radiology and try to find out the status on this procedure. I have also discussed with ID to see if this can be arranged outpatient as patient is currently in senior living if we are unable to do this here. Otherwise patient will need to be transferred 09/19: Continue empiric Bactrim. Apparently, abdominal lymph nodes are not accessible for CT-guided biopsy per radiology. Patient has toxoplasma IgG that is positive. ID would like to reimage with MRI brain with and without contrast to further delineate/determine need for brain biopsy. Follow-up AFB culture 09/20: Continue empiric Bactrim. Patient with follow-up MRI Friday to further delineate/determine need for brain biopsy. Follow-up AFB culture 09/21: Patient c/o severe nausea and vomiting, adjust med today, taper steroid. wait for MRI brain to be done. If no improvement on MRI brain than prior study will need to transfer the patient for possible brain biopsy. 09/22; MRI yesterday showed improvement of the brain lesion. ID recommended to continue Bactrim IV for now to treat toxoplasmosis. Also initiated on ARV from today. Plan to monitor the patient for next few days for the risks of IRIS. Di scussed with ID and recommended for possible discharge early next week. Patient would need a repeat MRI as outpatient in 4 weeks 09/23: Continue IV Bactrim and ARV. Continue to monitor the patient. If clinically stable possible DC early next week per ID recommendation 09/24: Cont current Mx, follow clinically. discharge planning when clears by ID 09/25: cont current Mx, possible d/c in 1-2 days when clears by ID. changed iv abx to po 09/26: Patient clinically stable. Plan to discharge back to [facility] with outpatient follow-up. Patient will continue at least 2 months of Bactrim for toxoplasmosis. Need follow-up with ID for further management as outpatient. Patient will also continue Fluconazole daily for 4 more days and ARV daily. Discharge diagnosis: -- CVA (cerebral vascular accident), ruled out with negative brain MRI --Cerebral toxoplasmosis ?? MRI brain 09/09 showed 2 regions of vasogenic edema in the left frontal lobe and right parietal lobe. 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 CT thorax showed no focus for malignancy CT abdomen pelvis showed diffuse lymphadenopathy -suggestive of possible lymphoma vs lymhadenopathy related to HIV or toxoplasmosis, consulted hematology and ID; high suspicion for HIV and toxoplasmosis related lymphadenopathy than lymphoma MRI brain w contrast on 09/21 suggested improving vasogenic edema/signs of brain lesion Neurology recommended IV Decadron -tapering dose will be completed as outpatient Patient also started on empirically Bactrim to treat for toxoplasmosis --HIV, when asked if he has high risk for HIV he then stated that he was told that he is positive for HIV about 4 days ago prior to this admission ordered for repeat test, CD4 count, consulted ID Started on ARV since 09/22/20 --History of weight loss, consult dietary Likely related to his underlying medical condition -DM type 2, BG under control, SSI as needed -- DVT prophylaxis SCDs bilateral lower extremities while in bed, patient is ambulatory. Disposition: DC/TX-[address]/LAW ENFORCEMENT Time spent for discharge: 34 minutes Core Measure Documentation - Palliative Care Palliative Care/ Comfort Measures: Not Applicable - Core Measures Any of the following diagnoses?: none Exam - Physical Exam Narrative exam: GENERAL: well-developed -[place] male lying on bed appeared to be in no discomfort. HEENT: Normocephalic. Atraumatic. No conjunctival congestion or icterus. Patient has moist mucous membranes. NECK: Supple. Trachea midline. CHEST/LUNGS: Clear to auscultated bilaterally, breathing nonlabored. No wheezes crackles or rhonchi. HEART/CARDIOVASCULAR: Regular in rate and rhythm. S1 and S2 positive. ABDOMEN: Abdomen is soft, nontender. Patient has normal bowel sounds. SKIN: There is no rash. Warm and dry. NEURO: No focal motor deficit. Follows command. Patient has staggering speech MUSCULOSKELETAL: No joint effusion or tenderness. EXTRIMITY: No edema, no cyanosis or clubbing. PSYCH: Cooperative. - Constitutional Vitals: Temp Pulse Resp BP Pulse Ox 98.0 F 71 20 112/77 94 09/26/20 07:48 09/26/20 07:48 09/26/20 07:48 09/26/20 07:48 09/26/20 07:48 Plan Activity: advance as tolerated, fall precautions Weight Bearing Status: Non-Weight Bearing Diet: low fat, low salt Additional Instructions: -Need MRI brain with contrast in 4 weeks. -If continue to have worsening symptoms then need brain biopsy with Neurosurgeon. -Continue Bactrim DS 2 tabs BID for [employer] toxoplasmosis for at least another 2 months and then maintenance therapy. -Fluconazole po daily for another 4 days. - continue PO Biktarvy 1 tab daily. -F/u with Dr Wagoner in two weeks Follow up with: PRIMARY MD PRASANNA [Primary Care Provider] - 3-5 Days KYLE WAGONER MD [Staff Physician] - 7 Days Prescriptions: Temazepam [Restoril] 15 mg PO QHS PRN #30 capsule PRN Reason: Sleep Sulfamethoxazole/Trimethoprim [Bactrim DS TAB] 2 each PO Q12HR #120 tablet Bictegrav/Emtricit/Tenofov Ala [Biktarvy 50-200-25 mg (Nf)] 1 each PO DAILY #30 tablet dexAMETHasone [Decadron] 2 mg PO Q24HR #4 tablet Fluconazole [Diflucan TAB] 200 mg PO QDAY #4 tablet levETIRAcetam [Keppra TAB] 500 mg PO BID #60 tablet
--- NOTE | 2020-09-26 14:56 | Progress Note ---
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 Toxoplasma IgG is positive. Ddx toxoplasmosis v/s [employer] lymphoma. LP unable to be done by radiology due to difficult tap. Repeat MRI brain with and without contrast on 09/21/2020 shows dec rease in the size of 2 enhancing lesions in the brain, vasogenic edema seems to be unchanged, overall as per radiology, findings more suggestive of toxoplasmosis. #Intra-abdominal lymphadenopathy: Noted on CT abdomen and pelvis: Could be lymphoma versus HIV related versus possibility of disseminated MAC. It seems his abdominal lymph nodes are not accessible for CT-guided biopsy based on radiology note. #HIV/AIDS: Viral load 4.6 million, CD4=32. Not on treatment. 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 #Diabetes: tight glycemic control for best outcomes. Recs: -Continue Bactrim DS 2 tabs BID for [employer] toxoplasmosis for at least another 2 months and then maintenance therapy -continue ART: Tenofovir, emtricitabine, dolutegravir, upon discharge, convert to PO Biktarvy 1 tab daily, please give prescription if needed -F/U AFB blood culture, HIV genotype -Needs a repeat outpatient MRI in another 4 weeks, if any worsening is noted, will need neurosurgery referral for brain biopsy -Follow up with community hospital physician at the residential. Recommend follow up with us at ID clinic as well if residential can arrange transportation, contact info given to my office d/w Dr. Hill. Matias Tucker MD, FACP [facility] ([facility] O: [phone] F: [phone] Subjective Date of service: 09/26/20 Principal diagnosis: Brain lesions Interval history: Afebrile. No new complaints. Feeling better overall. Objective - Exam Narrative Exam: Physical Exam: Constitutional: Alert, cooperative. No acute distress Head, Ears, Nose: Normocephalic, atraumatic. External ears, nose normal Eyes: Conjunctivae/corneas clear. No icterus. No ptosis. Neck: Supple, no meningeal signs Cardiovascular: S1, S2 normal. Respiratory: Good air entry, clear to auscultation bilaterally GI: Soft, non-tender; bowel sounds normal. No peritoneal signs Musculoskeletal: No pedal edema, no cyanosis. Skin: No rash or abscess Hem/Lymphatic: No palpable cervical or supraclavicular nodes. No lymphangitis Psych: Mood ok. Affect normal Neurological: Awake, alert, oriented. Dysarthria and right-sided weakness present - Constitutional Vitals: Vital Signs Temp Pulse Resp BP Pulse Ox 98.3 F 72 20 111/75 96 09/26/20 12:06 09/26/20 12:06 09/26/20 07:48 09/26/20 12:06 09/26/20 12:06 Temperature -Last 24 Hours Temperature 98.3 F Temperature 98.0 F Temperature 98.0 F Temperature 98.3 F Temperature 99.0 F Temperature 98.7 F - Labs CBC & Chem 7: 09/24/20 07:23 09/24/20 07:23
--- NOTE | 2020-09-26 15:58 | XRay Report ---
RIGHT KNEE 3 VIEWS INDICATION / CLINICAL INFORMATION: Fall with right knee pain COMPARISON: None available. FINDINGS: BONES / JOINT(S): No acute fracture or subluxation. No significant arthritis. SOFT TISSUES: No significant abnormality. ADDITIONAL FINDINGS: None. Signer Name: Rizwan Batres MD Signed: 09/26/2020 3:53 PM Workstation Name: [id number]
[2020-09-26 16:19] VITALS: BP 121/80
[2020-09-27] MEDS ORDERED: DEXAMETHASONE 2 MG TAB PO SCH (10:00)
== END 2020-09-26 20:48 | DRG 974 ==
LOC: ED 08:54 → 4A 10:56 → EEVIPCON 10:56 → 4A 13:41
PROVIDERS: ADMIT Internal Medicine; ATTEND Internal Medicine
PROC: 009U3ZX Drainage of Spinal Canal, Percutaneous Approach, Diagnostic (ICD-10-PCS; principal; 2020-09-14)
PROC: B01B1ZZ Fluoroscopy of Spinal Cord using Low Osmolar Contrast (ICD-10-PCS; 2020-09-14)
DX: B20 Human immunodeficiency virus [HIV] disease (principal); G93.6 Cerebral edema; B58.9 Toxoplasmosis, unspecified; G81.91 Hemiplegia, unspecified affecting right dominant side; E11.9 Type 2 diabetes mellitus without complications; Z82.49 Family history of ischemic heart disease and other diseases of the circulatory system; Z91.010 Allergy to peanuts; R47.1 Dysarthria and anarthria; D64.9 Anemia, unspecified; D49.6 Neoplasm of unspecified behavior of brain
CPT/HCPCS: 36415; 62270; 62328; 70450; 70551; 70552; 70553; 71270; 74178; 80048; 80076; 82024; 82962; 83036; 83550; 83615; 84484; 85025; 85049; 85610; 85670; 85730; 86140; 86403; 86592; 86689; 86777; 86778; 87536; 87641; 87901; 90686; 93005; 93306; 93880; 94760; 96374; 96375; 96376; G0378; A9270-GY; A9575; J1100; J1450; J2405; J2765; J3010; J7050; J7060; J8540; Q9967

== ENCOUNTER 2020-11-18 11:01 | Emergency (ER) | payer SELFPAY ==
[2020-11-18] MEDS ORDERED: KETOROLAC 30 MG/1 ML INJ IM ONE (12:56)
--- NOTE | 2020-11-18 12:58 | Event Note ---
ED Screening Note Date of service: 11/18/20 Time: 12:57 ED Screening Note: 50-year-old immunosuppressed male patient with history of brain cancer, cerebral toxoplasmosis, recent stroke, and HIV presents to the emergency department with complaints of progressively worsening right lower extremity pain and weakness for 2 months. The pain is poorly localized and worse with all movement. States his symptoms have worsened over the last week. 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 Patient was diagnosed with brain cancer earlier this year. He is under the care of an oncologist at [place]. He has not started radiation or chemotherapy due to financial constraints. He states he was supposed to be discharged home with an anticoagulant following his stroke earlier this year, but he reportedly never received the prescription. Tachycardic in triage. General: Awake, appropriately interactive. Tearful. Neck: Supple. Full range of motion intact. Cardiovascular: Normal peripheral perfusion. Pulmonary: No respiratory distress. Patient is speaking normally without use of accessory muscles. Skin: No apparent rashes or lesions. Neurological: No facial asymmetry. Speech is clear. Follows commands. Patient is alert and oriented. Musculoskeletal: Patient reports diffuse right lower extremity pain with poorly localized tenderness. He reports decreased sensation to light palpation along the lateral aspect of the right lower leg. He is using a cane for ambulation. Psych: Cooperative. Appropriate mood and affect. I have greeted and performed a focused rapid initial assessment of this patient. A comprehensive ED assessment and evaluation of the patient, analysis of all test results, and completion of the medical decision-making process will be conducted by additional ED providers. This initial assessment/diagnostic orders/clinical plan/treatment(s) is/are subject to change based on patients health status, clinical progression and re-assessment. Further treatment and workup at subsequent clinical provider's discretion. Patient/guardian urged not to elope from the ED as their condition may be serious if not clinically assessed and managed. Choice of radiographic study (if deemed appropriate) deferred to additional ED providers.
[2020-11-18 14:18] LABS: Basophils % (Auto) 0.6 % (0.0-1.8); Eosinophils # (Auto) 0.1 K/mm3 (0.0-0.4); Eosinophils % (Auto) 3.2 % (0.0-4.3); Hematocrit 42.9 % (35.5-45.6); Hemoglobin 14.3 gm/dl (11.8-15.2); Lymphocytes # (Auto) 0.4 K/mm3 (1.2-5.4); Lymphocytes % (Auto) 14.3 % (13.4-35.0); Mean Corpuscular HGB Conc 33 % (32-34); Mean Corpuscular Volume 85 fl (84-94); Monocytes # (Auto) 0.4 K/mm3 (0.0-0.8); Monocytes % (Auto) 14.8 % (0.0-7.3); Platelet Count 317 K/mm3 (140-440); Red Blood Count 5.04 M/mm3 (3.65-5.03); Red Cell Distribution Width 16.7 % (13.2-15.2)
[2020-11-18 14:29] LABS: Alanine Aminotransferase 16 units/L (7-56); Albumin 4.4 g/dL (3.9-5); BUN/Creatinine Ratio 9; Blood Urea Nitrogen 8 mg/dL (9-20); Calcium 8.5 mg/dL (8.4-10.2); Hemolysis Index 10
--- NOTE | 2020-11-18 20:26 | Cat Scan Report ---
CT head/brain wo con INDICATION: weakness. TECHNIQUE: All CT scans at this location are performed using CT dose reduction for ALARA by means of automated e xposure control. COMPARISON: 09/08/2020 FINDINGS: Imaged paranasal and mastoid sinuses are clear. Ventricles are symmetrical and normal in size. Low-at tenuation lesion in the left frontal lobe on the previous study is not apparent on today's exam. No m ass, hemorrhage or other acute abnormality. IMPRESSION: 1. No acute abnormality. Signer Name: Louis Abdullahi MD Signed: 11/18/2020 8:22 PM Workstation Name: [id number]
[2020-11-18 22:36] VITALS: BP 133/82
[2020-11-18] MEDS ORDERED: HYDROmorphone 1 MG/1 ML INJ IM ONE (22:50)
[2020-11-18] MEDS ORDERED: ONDANSETRON 4 MG/2 ML INJ IM ONE (22:50)
--- NOTE | 2020-11-18 22:55 | Emergency Department Report ---
HPI - General Chief Complaint: Extremity Problem,Nontraumatic Time Seen by Provider: 11/18/20 22:43 - HPI HPI: Room 23 The patient is a 50-year-old male present with a chief complaint of right leg pain. Patient complains of pain in his right lower extremity behind the calf and down the lateral aspect of the lower leg. Patient states his pain has been present since his stroke in August 2020. Patient denies any recent trauma. Patient states she was told it could be nerve pain in the past has been scheduled to see a pain specialist. Patient states in the interim he was told to come to the emergency department for pain control. Patient gives his pain a score of 10/10 ED Past Medical Hx - Past Medical History Previous Medical History?: Yes Hx CVA: Yes Hx Diabetes: Yes Hx HIV: Yes Additional medical history: denies - Surgical History Past Surgical History?: Yes Additional Surgical History: eye surgery as a child - Family History Family history: no significant - Social History Smoking Status: Current Some Day Smoker (1/7 pack/day) Substance Use Type: None (Denies illicit drug use) - Medications Home Medications: Home Medications Medication Instructions Recorded Confirmed Last Taken Type Bictegrav/Emtricit/Tenofov Ala 1 each PO DAILY #30 tablet 09/26/20 Unknown Rx [Biktarvy 50-200-25 mg (Nf)] Fluconazole [Diflucan TAB] 200 mg PO QDAY #4 tablet 09/26/20 Unknown Rx Sulfamethoxazole/Trimethoprim 2 each PO Q12HR #120 tablet 09/26/20 Unknown Rx [Bactrim DS TAB] Temazepam [Restoril] 15 mg PO QHS PRN #30 capsule 09/26/20 Unknown Rx dexAMETHasone [Decadron] 2 mg PO Q24HR #4 tablet 09/26/20 Unknown Rx levETIRAcetam [Keppra TAB] 500 mg PO BID #60 tablet 09/26/20 Unknown Rx Ibuprofen [Motrin 800 MG tab] 800 mg PO Q8HR PRN #20 tablet 11/19/20 Unknown Rx traMADoL [Ultram] 50 mg PO Q6HR PRN #20 tablet 11/19/20 Unknown Rx ED Review of Systems ROS: Stated complaint: RT LEG PAIN Other details as noted in HPI Constitutional: no symptoms reported Eyes: denies: eye pain ENT: denies: throat pain Respiratory: no symptoms reported Cardiovascular: denies: chest pain Endocrine: no symptoms reported Gastrointestinal: denies: abdominal pain Genitourinary: denies: dysuria Musculoskeletal: myalgia Neurological: denies: headache Physical Exam - Physical Exam Vital Signs: Vital Signs 11/18/20 11/18/20 11:32 22:30 Temperature 97.6 F Pulse Rate 117 H 97 H Respiratory 17 16 Rate Blood Pressure 115/89 133/82 [Right] O2 Sat by Pulse 98 97 Oximetry Physical Exam: GENERAL: The patient is well-developed well-nourished male lying on stretcher not appearing to be in acute distress. [] HEENT: Normocephalic. Atraumatic. Extraocular motions are intact. Patient has moist mucous membranes. NECK: Supple. Trachea midline CHEST/LUNGS: Clear to auscultation. There is no respiratory distress noted. HEART/CARDIOVASCULAR: Regular. There is no tachycardia. There is no gallop rub or murmur. Right foot warm (normothermic), DP palpated ABDOMEN: Abdomen is soft, nontender. Patient has normal bowel sounds. There is no abdominal distention. SKIN: There is no rash. There is no edema. There is no diaphoresis. NEURO: The patient is awake, alert, and oriented. The patient is cooperative. The patient has right-sided weakness from previous CVA. MUSCULOSKELETAL: There is no evidence of acute injury. ED Course Vital Signs 11/18/20 11/18/20 11:32 22:30 Temperature 97.6 F Pulse Rate 117 H 97 H Respiratory 17 16 Rate Blood Pressure 115/89 133/82 [Right] O2 Sat by Pulse 98 97 Oximetry ED Medical Decision Making - Lab Data Result diagrams: 11/18/20 13:22 11/18/20 13:22 Laboratory Tests 11/18/20 11/18/20 13:22 13:22 WBC 2.5 L RBC 5.04 H Hgb 14.3 Hct 42.9 MCV 85 MCH 28 MCHC 33 RDW 16.7 H Plt Count 317 Lymph % (Auto) 14.3 [place] % (Auto) 14.8 H Eos % (Auto) 3.2 Baso % (Auto) 0.6 Lymph # (Auto) 0.4 L [place] # (Auto) 0.4 Eos # (Auto) 0.1 Baso # (Auto) 0.0 Seg Neutrophils % 67.1 Seg Neutrophils # 1.7 L Sodium 135 L Potassium 3.7 Chloride 98.1 Carbon Dioxide 26 Anion Gap 15 BUN 8 L Creatinine 0.9 Estimated GFR > 60 BUN/Creatinine Ratio 9 Glucose 83 Calcium 8.5 Total Bilirubin 0.20 AST 16 ALT 16 Alkaline Phosphatase 78 Total Protein 7.4 Albumin 4.4 Albumin/Globulin Ratio 1.5 - Radiology Data Radiology results: report reviewed (CT head, right lower extremity Doppler), image reviewed (CT head, right lower extremity Doppler) [address] [address] Cat Scan Report Signed Patient: ELIU VELARDE JR MR#: [id number] : 1970 Acct:[id number] Age/Sex: 50 / M ADM Date: 11/18/20 Loc: ED Attending Dr: Ordering Physician: EDGARD SALES MD Date of Service: 11/18/20 Procedure(s): CT head/brain wo con Accession Number(s): [id number] cc: EDGARD SALES MD CT head/brain wo con INDICATION: weakness. TECHNIQUE: All CT scans at this location are performed using CT dose reduction for ALARA by means of automated exposure control. COMPARISON: 09/08/2020 FINDINGS: Imaged paranasal and mastoid sinuses are clear. Ventricles are symmetrical and normal in size. Low- attenuation lesion in the left frontal lobe on the previous study is not apparent on today's exam. No mass, hemorrhage or other acute abnormality. IMPRESSION: 1. No acute abnormality. Signer Name: Louis Abdullahi MD Signed: 11/18/2020 8:22 PM Workstation Name: [id number] Transcribed By: TM Dictated By: Louis Abdullahi MD Electronically Authenticated By: Louis Abdullahi MD Signed Date/Time: 11/18/202021 DD/ 18 TD/TT: Print Cancel [address] [address] Vascular Lab Report Signed Patient: ELIU VELARDE JR MR#: [id number] : 1970 Acct:[id number] Age/Sex: 50 / M ADM Date: 11/18/20 Loc: ED Attending Dr: Ordering Physician: GOLDIE JOHNSON MD Date of Service: 11/18/20 Procedure(s): VL venous duplex LE RT Accession Number(s): [id number] cc: GOLDIE JOHNSON MD DUPLEX DOPPLER LOWER EXTREMITY VEINS, RIGHT INDICATION / CLINICAL INFORMATION: Pain. TECHNIQUE: Duplex doppler imaging was performed through the veins of the right lower extremity using venous compression and other maneuvers. COMPARISON: None available. FINDINGS: RIGHT COMMON FEMORAL VEIN: Negative. RIGHT FEMORAL VEIN: Negative. RIGHT POPLITEAL VEIN: Negative. RIGHT CALF VEINS: Negative. ADDITIONAL FINDINGS: None. IMPRESSION: 1. No sonographic evidence for DVT in the right lower extremity. Signer Name: Leslye Burt MD Signed: 11/19/2020 12:16 AM Workstation Name: [id number] Transcribed By: [facility] Dictated By: Leslye Burt MD Electronically Authenticated By: Leslye Burt MD Signed Date/Time: 11/19/2015 DD/ TD/TT: Print Cancel - Differential Diagnosis Neuropathic pain, DVT, Critical care attestation.: If time is entered above; I have spent that time in minutes in the direct care of this critically ill patient, excluding procedure time. ED Disposition Clinical Impression: Right leg pain Disposition: DC-01 TO HOME OR SELFCARE Is pt being admited?: No Does the pt Need Aspirin: No Condition: Stable Additional Instructions: Return to the emergency department should you develop worsening symptoms, inability to tolerate food or liquids, high fever or any other concerns Prescriptions: Ibuprofen [Motrin 800 MG tab] 800 mg PO Q8HR PRN #20 tablet PRN Reason: Pain, Moderate (4-6) traMADoL [Ultram] 50 mg PO Q6HR PRN #20 tablet PRN Reason: Pain Referrals: PRIMARY CAREMD [Primary Care Provider] - 3-5 Days Time of Disposition: 00:32
--- NOTE | 2020-11-19 00:20 | Vascular Lab Report ---
DUPLEX DOPPLER LOWER EXTREMITY VEINS, RIGHT INDICATION / CLINICAL INFORMATION: Pain. TECHNIQUE: Duplex doppler imaging was performed through the veins of the right lower extremity using venous comp ression and other maneuvers. COMPARISON: None available. FINDINGS: RIGHT COMMON FEMORAL VEIN: Negative. RIGHT FEMORAL VEIN: Negative. RIGHT POPLITEAL VEIN: Negative. RIGHT CALF VEINS: Negative. ADDITIONAL FINDINGS: None. IMPRESSION: 1. No sonographic evidence for DVT in the right lower extremity. Signer Name: Leslye Burt MD Signed: 11/19/2020 12:16 AM Workstation Name: [id number]
== END 2020-11-19 00:49 | disposition home or self-care (01) ==
LOC: ED 11:01
DX: M79.661 Pain in right lower leg (principal); R51.9 Headache, unspecified; E11.9 Type 2 diabetes mellitus without complications; Z86.73 Personal history of transient ischemic attack (TIA), and cerebral infarction without residual deficits; Z21 Asymptomatic human immunodeficiency virus [HIV] infection status; F17.200 Nicotine dependence, unspecified, uncomplicated; Z98.890 Other specified postprocedural states; Z79.1 Long term (current) use of non-steroidal anti-inflammatories (NSAID); Z79.899 Other long term (current) drug therapy; Z91.010 Allergy to peanuts
CPT/HCPCS: 36415; 70450; 80053; 85025; 93971; 96372; 99284; J1170; J2405

== ENCOUNTER 2020-11-24 02:22 | Emergency (ER) | payer SELFPAY ==
[2020-11-24 03:50] LABS: Basophils % (Auto) 0.9 % (0.0-1.8); Eosinophils # (Auto) 0.1 K/mm3 (0.0-0.4); Eosinophils % (Auto) 2.1 % (0.0-4.3); Hematocrit 40.1 % (35.5-45.6); Hemoglobin 13.6 gm/dl (11.8-15.2); Lymphocytes # (Auto) 0.3 K/mm3 (1.2-5.4); Lymphocytes % (Auto) 7.1 % (13.4-35.0); Mean Corpuscular HGB Conc 34 % (32-34); Mean Corpuscular Volume 84 fl (84-94); Monocytes # (Auto) 0.4 K/mm3 (0.0-0.8); Monocytes % (Auto) 10.5 % (0.0-7.3); Platelet Count 281 K/mm3 (140-440); Red Blood Count 4.78 M/mm3 (3.65-5.03); Red Cell Distribution Width 16.8 % (13.2-15.2)
[2020-11-24 04:11] LABS: Alanine Aminotransferase 18 units/L (7-56); Albumin 4.5 g/dL (3.9-5); BUN/Creatinine Ratio 9; Blood Urea Nitrogen 10 mg/dL (9-20); Calcium 9.1 mg/dL (8.4-10.2); Hemolysis Index 3
--- NOTE | 2020-11-24 04:47 | Cat Scan Report ---
CT head/brain wo con INDICATION: Patient complains of a headache. TECHNIQUE: Routine CT head without contrast. All CT scans at this location are performed using CT dos e reduction for ALARA by means of automated exposure control. COMPARISON: CT head 11/18/2020 and MRI brain 09/21/2020 FINDINGS: BRAIN / INTRACRANIAL CONTENTS: No acute hemorrhage, mass effect, midline shift, or hydrocephalus. No appreciable acute large territorial or lacunar infarct. No chronic infarct or focal atrophy. Normal b rain volume and ventricular/sulcal size for age. ORBITS: No significant abnormality of visualized orbits. SINUSES / MASTOIDS: No significant abnormality of visualized sinuses and mastoid air cells. ADDITIONAL FINDINGS: None. IMPRESSION: 1. No acute intracranial abnormality. Signer Name: Leslye Burt MD Signed: 11/24/2020 4:42 AM Workstation Name: [id number]
[2020-11-24] MEDS ORDERED: traMADol 50 MG TAB PO ONE (09:25)
--- NOTE | 2020-11-24 09:25 | Emergency Department Report ---
ED Headache HPI - General Chief Complaint: Headache Stated Complaint: HEADACHE Time Seen by Provider: 11/24/20 08:33 Source: patient Exam Limitations: no limitations - History of Present Illness Initial Comments: Chief complaint: Headache, right leg pain HPI: This is a 50-year-old male with history of CVA, HIV/AIDS, who presents with headache and right leg pain. Patient had a headache since he experienced a stroke in August. He has a stabbing pain. He did not take anything for the pain. He was not prescribed anything for the pain. Patient also has had right leg pain since CVA. Recently duplex ultrasound at this emergency department ruled out DVT. Right leg pain constant worse with ambulation. Involving the entire leg worse at the knee. Patient came to the emergency department because he wanted to make sure that he did not have any "swelling on the brain". According to electronic medical record, patient was discharged with prescription for tramadol after his prolonged hospitalization after experiencing CVA. Timing/Duration: other (Several months) Quality: moderate Head Injury Location: frontal Recent Head Trauma: frequent headaches Associated Symptoms: denies symptoms Allergies/Adverse Reactions: Allergies peanut Allergy (Verified 12/16/17 11:00) Swelling Home Medications: Ambulatory Orders Bictegrav/Emtricit/Tenofov Ala [Biktarvy 50-200-25 mg (Nf)] 1 each PO DAILY #30 tablet 09/26/20 Fluconazole [Diflucan TAB] 200 mg PO QDAY #4 tablet 09/26/20 Sulfamethoxazole/Trimethoprim [Bactrim DS TAB] 2 each PO Q12HR #120 tablet 09/26/20 Temazepam [Restoril] 15 mg PO QHS PRN #30 capsule 09/26/20 dexAMETHasone [Decadron] 2 mg PO Q24HR #4 tablet 09/26/20 levETIRAcetam [Keppra TAB] 500 mg PO BID #60 tablet 09/26/20 Ibuprofen [Motrin 800 MG tab] 800 mg PO Q8HR PRN #20 tablet 11/19/20 traMADoL [Ultram] 50 mg PO Q6HR PRN #20 tablet 11/19/20 traMADoL [Ultram 50 MG tab] 50 mg PO Q6HR PRN #20 tablet 11/24/20 ED Review of Systems ROS: Stated complaint: HEADACHE Other details as noted in HPI Comment: All other systems reviewed and negative Constitutional: denies: fever, malaise Respiratory: denies: cough, shortness of breath Gastrointestinal: denies: abdominal pain, nausea, vomiting Neurological: headache ED Past Medical Hx - Past Medical History Previous Medical History?: Yes Hx CVA: Yes (Right side deficit) Hx Congestive Heart Failure: No Hx Diabetes: Yes Hx Asthma: No Hx COPD: No Hx HIV: Yes Additional medical history: denies - Surgical History Past Surgical History?: Yes Additional Surgical History: eye surgery as a child - Social History Smoking Status: Former Smoker Substance Use Type: None - Medications Home Medications: Home Medications Medication Instructions Recorded Confirmed Last Taken Type Bictegrav/Emtricit/Tenofov Ala 1 each PO DAILY #30 tablet 09/26/20 Unknown Rx [Biktarvy 50-200-25 mg (Nf)] Fluconazole [Diflucan TAB] 200 mg PO QDAY #4 tablet 09/26/20 Unknown Rx Sulfamethoxazole/Trimethoprim 2 each PO Q12HR #120 tablet 09/26/20 Unknown Rx [Bactrim DS TAB] Temazepam [Restoril] 15 mg PO QHS PRN #30 capsule 09/26/20 Unknown Rx dexAMETHasone [Decadron] 2 mg PO Q24HR #4 tablet 09/26/20 Unknown Rx levETIRAcetam [Keppra TAB] 500 mg PO BID #60 tablet 09/26/20 Unknown Rx Ibuprofen [Motrin 800 MG tab] 800 mg PO Q8HR PRN #20 tablet 11/19/20 Unknown Rx traMADoL [Ultram] 50 mg PO Q6HR PRN #20 tablet 11/19/20 Unknown Rx traMADoL [Ultram 50 MG tab] 50 mg PO Q6HR PRN #20 tablet 11/24/20 Unknown Rx ED Physical Exam - General Limitations: No Limitations General appearance: alert, in no apparent distress, other (Stuttering speech, no acute distress) - Head Head exam: Present: atraumatic, normocephalic - Eye Eye exam: Present: normal appearance - ENT ENT exam: Present: mucous membranes moist - Neck Neck exam: Present: normal inspection, full ROM - Respiratory Respiratory exam: Present: normal lung sounds bilaterally. Absent: respiratory distress, wheezes, rales, rhonchi - Cardiovascular Cardiovascular Exam: Present: regular rate, normal rhythm, normal heart sounds. Absent: systolic murmur, diastolic murmur, rubs, gallop - GI/Abdominal GI/Abdominal exam: Present: soft, normal bowel sounds. Absent: distended, tenderness, guarding, rebound - Rectal Rectal exam: Present: deferred - Extremities Exam Extremities exam: Present: normal inspection - Expanded Lower Extremity Exam Right Hip exam: Present: normal inspection, tenderness Upper Leg exam: Present: normal inspection, full ROM Knee exam: Present: normal inspection, full ROM Lower Leg exam: Present: normal inspection, full ROM Ankle exam: Present: normal inspection, full ROM Foot/Toe exam: Present: normal inspection, full ROM - Back Exam Back exam: Present: normal inspection - Neurological Exam Neurological exam: Present: alert, oriented X3 - Psychiatric Psychiatric exam: Present: normal affect, normal mood - Skin Skin exam: Present: warm, dry, intact, normal color. Absent: rash ED Course Vital Signs 11/24/20 02:59 Temperature 98.1 F Pulse Rate 75 Respiratory 16 Rate Blood Pressure 105/81 O2 Sat by Pulse 100 Oximetry ED Medical Decision Making - Lab Data Result diagrams: 11/24/20 03:30 11/24/20 03:30 Laboratory Results - last 24 hr 11/24/20 11/24/20 03:30 03:30 WBC 3.5 L RBC 4.78 Hgb 13.6 Hct 40.1 MCV 84 MCH 28 MCHC 34 RDW 16.8 H Plt Count 281 Lymph % (Auto) 7.1 L [place] % (Auto) 10.5 H Eos % (Auto) 2.1 Baso % (Auto) 0.9 Lymph # (Auto) 0.3 L [place] # (Auto) 0.4 Eos # (Auto) 0.1 Baso # (Auto) 0.0 Seg Neutrophils % 79.4 H Seg Neutrophils # 2.8 Sodium 140 Potassium 4.3 Chloride 102.2 Carbon Dioxide 27 Anion Gap 15 BUN 10 Creatinine 1.1 Estimated GFR > 60 BUN/Creatinine Ratio 9 Glucose 129 H Calcium 9.1 Total Bilirubin 0.20 AST 17 ALT 18 Alkaline Phosphatase 77 Total Protein 7.3 Albumin 4.5 Albumin/Globulin Ratio 1.6 - Radiology Data Radiology results: report reviewed Patient Name: ELIU VELARDE Gender: Male Date of : 1970 Referring Provider: DOC, ED Organization: [facility] Accession Number: [id number] Requested Date: November 24, 2020 04:17 Report Status: Final Requested Procedure: 1 Procedure Description: CT head/brain wo con Modality: CT Findings Reporting MD: Leslye Burt Dictation Time: November 24, 2020 03:42 Lay Out Helper: Not available [employer] Runner Compounder Date: CT head/brain wo con INDICATION: Patient complains of a headache. TECHNIQUE: Routine CT head without contrast. All CT scans at this location are p erformed using CT dose reduction for ALARA by means of automated exposure control. COMPARISON: CT head 11/18/2020 and MRI brain 09/21/2020 FINDINGS: BRAIN / INTRACRANIAL CONTENTS: No acute hemorrhage, mass effect, midline shift, or hydrocephalus. No appreciable acute large territorial or lacunar infarct. No chronic infarct or focal atrophy. Normal brain volume and ventricular/sulcal size for age. ORBITS: No significant abnormality of visualized orbits. SINUSES / MASTOIDS: No significant abnormality of visualized sinuses and mastoid air cells. ADDITIONAL FINDINGS: None. IMPRESSION: 1. No acute intracranial abnormality. Signer Name: Leslye Burt MD Signed: 11/24/2020 3:42 AM Workstation Name: [id number] - Medical Decision Making 1. Recurrent headache: Patient had extensive evaluation for headache while admitted in August. MRI revealed several lesions. Differential diagnosis includes metastasis, toxoplasmosis.patient referred to infectious disease sp ecialist. Patient was evaluated by neurosurgeon. CT head obtained ruled out acute process such as intracranial hemorrhage. I have prescribed tramadol. Patient does not appear toxic. He has normal neurological exam today. I have encouraged him to follow-up with infectious disease specialist. 2. Right lower extremity pain: Suspect sciatica, referred to spine surgeon. Patient has recently established primary care [facility]. Critical care attestation.: If time is entered above; I have spent that time in minutes in the direct care of this critically ill patient, excluding procedure time. ED Disposition Clinical Impression: Sciatica, Recurrent headache Disposition: DC-01 TO HOME OR SELFCARE Is pt being admited?: No Does the pt Need Aspirin: No Condition: Stable Instructions: Tension Headache, Adult, [id number], Sciatica Prescriptions: traMADoL [Ultram 50 MG tab] 50 mg PO Q6HR PRN #20 tablet PRN Reason: Pain Referrals: MELODY LOBO II, MD [Staff Physician] - 3-5 Days PRIMARY CARE, [Primary Care Provider] - 3-5 Days VAZQUEZ FRASER MD [Staff Physician] - 3-5 Days
[2020-11-24 09:44] VITALS: BP 114/72
== END 2020-11-24 09:42 | disposition home or self-care (01) ==
LOC: ED 02:22
DX: M54.30 Sciatica, unspecified side (principal); R51.9 Headache, unspecified; E11.9 Type 2 diabetes mellitus without complications; Z79.899 Other long term (current) drug therapy; Z86.73 Personal history of transient ischemic attack (TIA), and cerebral infarction without residual deficits; Z21 Asymptomatic human immunodeficiency virus [HIV] infection status; Z98.890 Other specified postprocedural states; Z91.010 Allergy to peanuts; Z87.891 Personal history of nicotine dependence
CPT/HCPCS: 36415; 70450; 80053; 85025

== ENCOUNTER 2020-12-21 10:39 | Emergency (ER) | payer SELFPAY ==
[2020-12-21 10:48] VITALS: BP 141/92
[2020-12-21] MEDS ORDERED: oxyCODONE /ACETAMINOPHEN 5-325MG TAB PO ONE (11:28)
--- NOTE | 2020-12-21 11:28 | Emergency Department Report ---
ED General Adult HPI - General Chief complaint: Medical Clearance Stated complaint: OUT OF MEDS PUI?: No Time Seen by Provider: 12/21/20 11:27 Source: patient Mode of arrival: Ambulatory Limitations: No Limitations - History of Present Illness Initial comments: History Cosme is a pleasant 50-year-old male that comes to the emergency room complaining of right groin pain. He is status post a thrombectomy with vascular surgery at [place]. He has a 4 inch incision that is stapled in his right groin area. He states that he had a femoral artery thrombectomy. He has a follow-up appointment with the vascular surgeons but he has used all of his pain medicine so he comes to the ER today wanting a refill of his Percocet. He has on his person a hard copy of a prescription for Percocet but he states that he cannot get it filled. I am unclear as to why that is. I explained to the patient that we just cannot refill his pain medications that if he is having pain we need to make sure that he does not have an infection, pseudoaneurysm or residual thrombus that is causing him to have pain. Patient denies fever or chills. He denies any chest pain or shortness of breath. He denies numbness and tingling of the leg. He is ambulatory to the ER. -: Gradual, days(s) Location: lower extremity Severity scale (0 -10): 10 Consistency: constant Improves with: medication Worsens with: other Associated Symptoms: denies other symptoms Treatments Prior to Arrival: none - Related Data Previous Rx's Medication Instructions Recorded Last Taken Type Bictegrav/Emtricit/Tenofov Ala 1 each PO DAILY #30 tablet 09/26/20 Unknown Rx [Biktarvy 50-200-25 mg (Nf)] Temazepam [Restoril] 15 mg PO QHS PRN #30 capsule 09/26/20 Unknown Rx levETIRAcetam [Keppra TAB] 500 mg PO BID #60 tablet 09/26/20 Unknown Rx traMADoL [Ultram] 50 mg PO Q6HR PRN #12 tablet 12/21/20 Unknown Rx Allergies Allergy/AdvReac Type Severity Reaction Status Date / Time peanut Allergy Swelling Verified 12/16/17 11:00 ED Review of Systems ROS: Stated complaint: OUT OF MEDS Other details as noted in HPI Comment: All other systems reviewed and negative ED Past Medical Hx - Past Medical History Previous Medical History?: Yes Hx CVA: Yes (Right side deficit) Hx Congestive Heart Failure: No Hx Diabetes: Yes Hx Asthma: No Hx COPD: No Hx HIV: Yes Additional medical history: hx cva with tremor since that time - Surgical History Past Surgical History?: Yes Additional Surgical History: eye surgery as a child; thrombectomy r fem artery 12/08 - Family History Family history: no significant - Social History Smoking Status: Former Smoker Substance Use Type: None - Medications Home Medications: Home Medications Medication Instructions Recorded Confirmed Last Taken Type Bictegrav/Emtricit/Tenofov Ala 1 each PO DAILY #30 tablet 09/26/20 Unknown Rx [Biktarvy 50-200-25 mg (Nf)] Temazepam [Restoril] 15 mg PO QHS PRN #30 capsule 09/26/20 Unknown Rx levETIRAcetam [Keppra TAB] 500 mg PO BID #60 tablet 09/26/20 Unknown Rx traMADoL [Ultram] 50 mg PO Q6HR PRN #12 tablet 12/21/20 Unknown Rx ED Physical Exam - General Limitations: No Limitations General appearance: alert, in no apparent distress, other (tremor ) - Head Head exam: Present: atraumatic, normocephalic - Eye Eye exam: Present: normal appearance - ENT ENT exam: Present: mucous membranes moist - Neck Neck exam: Present: normal inspection - Respiratory Respiratory exam: Present: normal lung sounds bilaterally. Absent: respiratory distress - Cardiovascular Cardiovascular Exam: Present: regular rate, normal rhythm. Absent: systolic murmur, diastolic murmur, rubs, gallop - GI/Abdominal GI/Abdominal exam: Present: soft, normal bowel sounds - Rectal Rectal exam: Present: deferred - Extremities Exam Extremities exam: Present: normal inspection, normal capillary refill - Back Exam Back exam: Present: normal inspection - Neurological Exam Neurological exam: Present: alert, oriented X3 - Psychiatric Psychiatric exam: Present: normal affect, normal mood - Skin Skin exam: Present: warm, dry, normal color. Absent: rash ED Course Vital Signs 12/21/20 10:47 Temperature 98.8 F Pulse Rate 114 H Respiratory 20 Rate Blood Pressure 141/92 [Right] O2 Sat by Pulse 98 Oximetry - Reevaluation(s) Reevaluation #1: 12/21/20 13:15 HR ON EXAM 90 ED Medical Decision Making - Lab Data Result diagrams: 12/21/20 11:44 12/21/20 11:44 - Radiology Data Radiology results: report reviewed, image reviewed no thrombosis - Medical Decision Making Vital Signs 12/21/20 10:47 Temperature 98.8 F Pulse Rate 114 H Respiratory 20 Rate Blood Pressure 141/92 [Right] O2 Sat by Pulse 98 Oximetry Labs 12/21/20 12/21/20 12/21/20 11:44 11:44 11:44 WBC 2.5 L RBC 4.40 Hgb 12.6 Hct 37.5 MCV 85 MCH 29 MCHC 34 RDW 15.4 H Plt Count 340 Sodium 138 Potassium 3.7 Chloride 101.4 Carbon Dioxide 27 Anion Gap 13 BUN 12 Creatinine 0.9 Estimated GFR > 60 BUN/Creatinine Ratio 13 Glucose 92 Lactic Acid 0.90 Calcium 8.8 Total Bilirubin 0.20 AST 13 ALT 9 Alkaline Phosphatase 86 Total Protein 7.2 Albumin 4.3 Albumin/Globulin Ratio 1.5 Labs have been noted. WBC is normal. Ultrasound to rule out residual thrombus by vascular was negative for arterial thrombosis and for venous thrombosis. Lactic acid is normal. DP and PT are palpable bilaterally. Patient is ambulatory. He does have an incisional pain. The incision has memo intact. There is no drainage. There is no redness. Notes no surrounding cellulitis. The memo are not pulling. The wound edges are well approximated. There is no palpable surrounding geronimo heladio. There is no ecchymosis around the incisional site. On discharge I explained to the patient all the above findings. We are glad that there is no untoward consequences status post his vascular surgery. However, I have explained to him that we cannot just give him more Percocet. I have explained to him that he needs to call his vascular surgeon let them know what is going on with the prescription and they should be able to as the surgeons to get him adequate pain control for his incisional pain. Patient discharged home with follow-up instructions including follow-up with vascular surgery for his persistent incisional pain. Patient verbalizes understanding of discharge plan of care - Differential Diagnosis ro infection; pseudoaneurym; pad/thrombosed graft Critical care attestation.: If time is entered above; I have spent that time in minutes in the direct care of this critically ill patient, excluding procedure time. ED Disposition Clinical Impression: Incisional pain Disposition: DC-01 TO HOME OR SELFCARE Is pt being admited?: No Does the pt Need Aspirin: No Condition: Stable Instructions: Acute Pain, Adult Additional Instructions: FOLLOW UP WITH YOUR VASCULAR SURGEON AND PCP FOR MORE PAIN MEDICATION Prescriptions: traMADoL [Ultram] 50 mg PO Q6HR PRN #12 tablet PRN Reason: Pain Referrals: OCHOA MORA MD [Staff Physician] - 3-5 Days Time of Disposition: 12:59
[2020-12-21 12:05] LABS: Hematocrit 37.5 % (35.5-45.6); Hemoglobin 12.6 gm/dl (11.8-15.2); Mean Corpuscular HGB Conc 34 % (32-34); Mean Corpuscular Volume 85 fl (84-94); Platelet Count 340 K/mm3 (140-440); Red Cell Distribution Width 15.4 % (13.2-15.2)
[2020-12-21 12:24] LABS: Alanine Aminotransferase 9 units/L (7-56); Albumin 4.3 g/dL (3.9-5); BUN/Creatinine Ratio 13; Blood Urea Nitrogen 12 mg/dL (9-20); Calcium 8.8 mg/dL (8.4-10.2); Hemolysis Index 4
--- NOTE | 2020-12-21 13:18 | Vascular Lab Report ---
DUPLEX DOPPLER LOWER EXTREMITY ARTERIAL, RIGHT INDICATION: Right lower extremity pain, status post thrombectomy. TECHNIQUE: Arterial duplex examination of the right lower extremity performed using B-mode, color flow and spect ral Doppler assessment. FINDINGS: RIGHT: Common Femoral Artery: PSV 76 cm/sec. Triphasic waveform. Proximal SFA: PSV 85 cm/sec. Triphasic waveform. Mid SFA: PSV 98 cm/sec. Triphasic waveform. Distal SFA: PSV 74 cm/sec. Triphasic waveform. Popliteal artery: PSV 79 cm/sec. Triphasic waveform. Posterior tibial artery: PSV 99 cm/sec. Triphasic waveform. Dorsalis Pedis Artery: PSV 21 cm/sec. Biphasic waveform. IMPRESSION: Right lower extremity arterial structures are patent with multiphasic waveforms as outlined above. Signer Name: Isidoro Clark Jr, MD Signed: 12/21/2020 1:14 PM Workstation Name: [id number]
== END 2020-12-21 13:37 | disposition home or self-care (01) ==
LOC: ED 10:39
DX: G89.18 Other acute postprocedural pain (principal); R10.31 Right lower quadrant pain; E11.9 Type 2 diabetes mellitus without complications; Z98.890 Other specified postprocedural states; Z87.891 Personal history of nicotine dependence; Z91.010 Allergy to peanuts; Z79.899 Other long term (current) drug therapy
CPT/HCPCS: 36415; 80053; 82140; 85027; 99284